=== PATIENT | female | born 1960 | race Two or more races ===

== ENCOUNTER 2019-05-14 17:51 | Inpatient (IN) | payer MEDICARE, MEDICAID ==
[~2019-05-14] VITALS: Ht 165.1 cm; Wt 78.2 kg
--- NOTE | 2019-05-14 18:01 | NUR ---
ED Nurse Note: Patient gregg MACEDO from [facility] with elevated potassium, creatinine and BUN. based on lab results, patients potassium is 6.5. at time of arrival patient complains of no pain at this time. patient is alert and oriented x4. patient presents with scabs on her skin bilaterally, has 3 wounds, 1 pressure ulcer on the left foot, one on the right elbow. patient states that she also has a surgical wound on her left hip.
--- NOTE | 2019-05-14 18:02 | NUR ---
ED Nurse Note: patient presents with swollen legs bilaterally. patients skin is rough and dry
[2019-05-14 18:36] VITALS: BP 146/66
[2019-05-14 18:42] LABS: EOSINOPHILS % (AUTO) 2.4 % (0.0-3.0); HEMATOCRIT 32.1 % (37.0-47.0); HEMOGLOBIN 9.9 G/DL (12.0-16.0); LYMPHOCYTES % (AUTO) 24.1 % (20.0-45.0); MEAN CORPUSCULAR VOLUME 93 FL (80-99); MONOCYTES % (AUTO) 6.4 % (1.0-10.0); NEUTROPHILS % (AUTO) 66.2 % (45.0-75.0); PLATELET COUNT 210 K/UL (150-450); RED BLOOD COUNT 3.43 M/UL (4.20-5.40); RED CELL DISTRIBUTION WIDTH 15.6 % (11.6-14.8); WHITE BLOOD COUNT 6.4 K/UL (4.8-10.8)
--- NOTE | 2019-05-14 19:11 | Diagnostic Imaging Report ---
EXAM: XR Chest, 1 View CLINICAL HISTORY: CP TECHNIQUE: Frontal view of the chest. COMPARISON: No relevant prior studies available. FINDINGS: Lungs: Low lung volumes with bronchovascular crowding. No consolidation, pleural effusion, or pneumothorax. Pleural space: See above. Heart: Unremarkable. No cardiomegaly. Mediastinum: Unremarkable. Bones/joints: Unremarkable. IMPRESSION: 1. Low lung volumes with bronchovascular crowding. 2. No acute cardio pulmonary disease. 3. If there is continued concern, recommend PA and lateral chest radiographs.
[2019-05-14 20:03] LABS: ALANINE AMINOTRANSFERASE 36 U/L (12-78); ALBUMIN 1.9 G/DL (3.4-5.0); ALBUMIN/GLOBULIN RATIO 0.2 (1.0-2.7); ALKALINE PHOSPHATASE 178 U/L (46-116); ANION GAP 3 mmol/L (5-15); ASPARTATE AMINO TRANSFERASE 55 U/L (15-37); BILIRUBIN,TOTAL 0.2 MG/DL (0.2-1.0); BLOOD UREA NITROGEN 44 mg/dL (7-18); CALCIUM 7.8 MG/DL (8.5-10.1); CARBON DIOXIDE 25 MMOL/L (21-32); CHLORIDE 104 MMOL/L (98-107); CKMB 1.1 NG/ML (0.0-3.6); CREATINE KINASE 37 U/L (26-308); CREATININE 2.8 MG/DL (0.55-1.30); SODIUM 133 MMOL/L (136-145)
[2019-05-14 20:08] LABS: POTASSIUM 6.5 MMOL/L (3.5-5.1)
[2019-05-14] MEDS ORDERED: Insulin Human Regular 100units/ml 3ml IV ONE (20:15)
[2019-05-14] MEDS ORDERED: Calcium Gluconate 1gm/10ml vial IVP ONE (20:15)
--- NOTE | 2019-05-14 20:15 | NUR ---
NURSE NOTES: Received patient from ER Nurse Christo RN. Patient is awake and oriented x4, she is on room air, tolerating well showing no signs of distress. Patient's bilateral legs are edematous, rough, and scaly. IV site is Right Forearm 22g, patent and asymptomatic. Heart monitor is on, bed is locked, placed in lowest position, call light within reach, bed alarm on. Belonging list has been signed. Awaiting orders from Dr. Matute. Will continue to monitor.
--- NOTE | 2019-05-14 20:30 | NUR ---
ED Nurse Note: Patient refused cre and vre swab
--- NOTE | 2019-05-14 20:45 | NUR ---
NURSE NOTES: Called Dr. Matute's office regarding admitting orders. Awaiting orders from doctor.
--- NOTE | 2019-05-14 21:00 | NUR ---
ED Nurse Note: ambulated patient to the bathroom
[2019-05-14 21:08] LABS: APPEARANCE,URINE CLEAR; BILIRUBIN, URINE NEGATIVE (NEGATIVE); COLOR,URINE PALE YELLOW; GLUCOSE, URINE (UA) NEGATIVE (NEGATIVE); KETONES,URINE NEGATIVE (NEGATIVE); LEUKOCYTE ESTERASE ,URINE 1+ (NEGATIVE); NITRITE,URINE NEGATIVE (NEGATIVE); PH,URINE 5 (4.5-8.0); PROTEIN,URINE 3+ (NEGATIVE); UROBILINOGEN,URINE NORMAL MG/DL (0.0-1.0)
[2019-05-14 21:26] VITALS: BP 138/72
--- NOTE | 2019-05-14 21:49 | Emergency Room Report ---
History of Present Illness General Chief Complaint: Abnormal Labs Source: Patient Present Illness HPI 58-year-old female presents ED for evaluation. Brought in by EMS from custodial facility for abnormal labs. Had recent labs which showed elevated potassium with elevated BUN/creatinine. Patient states this is happened to her before. States she does have kidney problems. But is not on dialysis. Denies chest pain or shortness of breath. Denies fevers or chills. No other aggravating relieving factors. Denies any other associated symptoms Allergies: Coded Allergies: CLINDAMYCIN (Verified Allergy, Unknown, 05/14/19) VANCOMYCIN (Verified Allergy, Unknown, 05/14/19) Patient History Past Medical History: DM, CHF Past Surgical History: none Pertinent Family History: none Social History: Denies: smoking, alcohol use, drug use Now: No Immunizations: UTD Reviewed Nursing Documentation: PMH: Agreed; PSxH: Agreed Nursing Documentation-PMH Past Medical History: No History, Except For Hx Cardiac Problems: Yes Hx Hypertension: Yes - CHF Hx Diabetes: Yes Review of Systems All Other Systems: negative except mentioned in HPI Physical Exam Vital Signs Date Time Temp Pulse Resp B/P (MAP) Pulse Ox O2 Delivery O2 Flow Rate FiO2 05/14/19 18:04 97.5 62 18 146/66 (92) 96 Room Air Sp02 EP Interpretation: reviewed, normal General Appearance: no apparent distress, alert, GCS 15, non-toxic Head: normocephalic, atraumatic Eyes: bilateral eye normal inspection, bilateral eye PERRL ENT: hearing grossly normal, normal pharynx, no angioedema, normal voice Neck: full range of motion, supple/symm/no masses Respiratory: chest non-tender, lungs clear, normal breath sounds, speaking full sentences Cardiovascular #1: regular rate, rhythm, no edema Cardiovascular #2: 2+ carotid (R), 2+ carotid (L), 2+ radial (R), 2+ radial (L) , 2+ dorsalis pedis (R), 2+ dorsalis pedis (L) Gastrointestinal: normal bowel sounds, non tender, soft, non-distended, no guarding, no rebound Rectal: deferred Genitourinary: normal inspection, no CVA tenderness Musculoskeletal: back normal, gait/station normal, normal range of motion, non- tender, swelling Neurologic: alert, oriented x3, responsive, motor strength/tone normal, sensory intact, speech normal Psychiatric: judgement/insight normal, memory normal, mood/affect normal, no suicidal/homicidal ideation Reflexes: 3+ bicep (R), 3+ bicep (L), 3+ tricep (R), 3+ tricep (L), 3+ knee (R) , 3+ knee (L) Lymphatic: no adenopathy Medical Decision Making Diagnostic Impression: Primary Impression: Hyperkalemia, diminished renal excretion Additional Impression: Renal insufficiency ER Course Hospital Course 58 yo F presents with elevated K from SNF Differential diagnoses include: [place]/unstable angina, V. tach, bradycardia, hyperkalemia, fluid overload Clinical course Patient placed on stretcher. on property assessment monitor. After initial history and physical I ordered labs, EKG, CXR labs reviewed- potassium 6.5. BUN/Cr elevated. Hemoglobin/hematocrit normal. trop negative EKG - NSR, no acute ischemic changes interpreted by me CXR - no acute process Given insuln/D50 and calcium. Case discussed with Dr. Matute and he agreed to accept the patient to his service for further care and support I. I feel this is a highly complex case requiring extensive working including EKG/Rhythm strip, Xray/CT/US, Blood/urine lab work, repeat exams while in ED, and administration of strong opiates/narcotics for pain control, admission to hospital or close patient follow up. Diagnosis - hyperkalemia, renal insufficiency admitted to telemetry in serious condition Labs Test 05/14/19 18:15 05/14/19 19:20 05/14/19 20:55 White Blood Count 6.4 K/UL (4.8-10.8) Red Blood Count 3.43 M/UL (4.20-5.40) Hemoglobin 9.9 G/DL (12.0-16.0) Hematocrit 32.1 % (37.0-47.0) Mean Corpuscular Volume 93 FL (80-99) Mean Corpuscular Hemoglobin 28.9 PG (27.0-31.0) Mean Corpuscular Hemoglobin Concent 30.9 G/DL (32.0-36.0) Red Cell Distribution Width 15.6 % (11.6-14.8) Platelet Count 210 K/UL (150-450) Mean Platelet Volume 5.9 FL (6.5-10.1) Neutrophils (%) (Auto) 66.2 % (45.0-75.0) Lymphocytes (%) (Auto) 24.1 % (20.0-45.0) Monocytes (%) (Auto) 6.4 % (1.0-10.0) Eosinophils (%) (Auto) 2.4 % (0.0-3.0) Basophils (%) (Auto) 1.0 % (0.0-2.0) Troponin I 0.000 ng/mL (0.000-0.056) Sodium Level 133 MMOL/L (136-145) Potassium Level 6.5 MMOL/L (3.5-5.1) Chloride Level 104 MMOL/L (98-107) Carbon Dioxide Level 25 MMOL/L (21-32) Anion Gap 3 mmol/L (5-15) Blood Urea Nitrogen 44 mg/dL (7-18) Creatinine 2.8 MG/DL (0.55-1.30) Estimat Glomerular Filtration Rate 17.4 mL/min (>60) Glucose Level 141 MG/DL (74-106) Calcium Level 7.8 MG/DL (8.5-10.1) Total Bilirubin 0.2 MG/DL (0.2-1.0) Aspartate Amino Transf (AST/SGOT) 55 U/L (15-37) Alanine Aminotransferase (ALT/SGPT) 36 U/L (12-78) Alkaline Phosphatase 178 U/L (46-116) Total Creatine Kinase 37 U/L (26-308) Creatine Kinase MB 1.1 NG/ML (0.0-3.6) Creatine Kinase MB Relative Index 2.9 Pro-B-Type Natriuretic Peptide 715 pg/mL (0-125) Total Protein 9.5 G/DL (6.4-8.2) Albumin 1.9 G/DL (3.4-5.0) Globulin 7.6 g/dL Albumin/Globulin Ratio 0.2 (1.0-2.7) Urine Color Pale yellow Urine Appearance Clear Urine pH 5 (4.5-8.0) Urine Specific [place] 1.015 (1.005-1.035) Urine Protein 3+ (NEGATIVE) Urine Glucose (UA) Negative (NEGATIVE) Urine Ketones Negative (NEGATIVE) Urine Blood 2+ (NEGATIVE) Urine Nitrite Negative (NEGATIVE) Urine Bilirubin Negative (NEGATIVE) Urine Urobilinogen Normal MG/DL (0.0-1.0) Urine Leukocyte Esterase 1+ (NEGATIVE) Urine RBC 2-4 /HPF (0 - 2) Urine WBC 0-2 /HPF (0 - 2) Urine Squamous Epithelial Cells Occasional /LPF Urine Bacteria Few /HPF (NONE) EKG Diagnostic Results Rate: normal Rhythm: NSR ST Segments: no acute changes ASA given to the pt in ED: No Rhythm Strip Diag. Results EP Interpretation: yes Rhythm: NSR, no PVC's, no ectopy Chest X-Ray Diagnostic Results Chest X-Ray Diagnostic Results : Chest X-Ray Ordered: Yes # of Views/Limited/Complete: 1 View Indication: Other EP Interpretation: Yes Interpretation: no consolidation, no effusion, no pneumothorax, no acute cardiopulmonary disease Impression: No acute disease Electronically Signed by: Electronically signed by Kenyon Huerta MD Last Vital Signs Date Time Temp Pulse Resp B/P (MAP) Pulse Ox O2 Delivery O2 Flow Rate FiO2 05/14/19 21:26 97.5 79 18 138/72 96 Room Air Status: improved Disposition: ADMITTED INPATIENT Condition: Serious Referrals: NON PHYSICIAN (PCP) Kenyon Huerta MD May 14, 2019 21:49
--- NOTE | 2019-05-14 21:59 | Emergency Room Report ---
Physical Exam Vital Signs Date Time Temp Pulse Resp B/P (MAP) Pulse Ox O2 Delivery O2 Flow Rate FiO2 05/14/19 18:04 97.5 62 18 146/66 (92) 96 Room Air Skin: other - see nursing notes for full skin exam, wounds etc Medical Decision Making Diagnostic Impression: Primary Impression: Hyperkalemia, diminished renal excretion Additional Impression: Renal insufficiency Last Vital Signs Date Time Temp Pulse Resp B/P (MAP) Pulse Ox O2 Delivery O2 Flow Rate FiO2 05/14/19 21:26 97.5 79 18 138/72 96 Room Air Status: improved Disposition: ADMITTED INPATIENT Condition: Serious Referrals: NON PHYSICIAN (PCP) Kenyon Huerta MD May 14, 2019 21:59
--- NOTE | 2019-05-14 22:00 | NUR ---
TRANSFER TO FLOOR: Patient transferred to Telemetry as ordered, per . Report given to ChongRN
[2019-05-14] MEDS ORDERED: METHADONE10 MG/1 M2 PO (22:02)
[2019-05-14] MEDS ORDERED: ASPIR 8181 MG ORAL (22:02)
[2019-05-14] MEDS ORDERED: CYMBALTA30 MG ORAL (22:02)
[2019-05-14] MEDS ORDERED: HEPARIN 50100 UNIT/1 IV (22:02)
[2019-05-14] MEDS ORDERED: FERROUS SULFAT325 MG ORAL (22:02)
[2019-05-14] MEDS ORDERED: ZINC SULFATE220 M1 ORAL (22:02)
[2019-05-14] MEDS ORDERED: LEVOTHYROXINE125 MCG ORAL (22:02)
[2019-05-14] MEDS ORDERED: AQUAPHOR99 GM TP (22:02)
[2019-05-14] MEDS ORDERED: LOSARTAN POTASS50 MG ORAL (22:02)
[2019-05-14] MEDS ORDERED: BENADRYL25 MG ORAL (22:02)
[2019-05-14] MEDS ORDERED: METOPROLOL TART25 MG ORAL (22:02)
[2019-05-14] MEDS ORDERED: ACETAMINOPHEN325 M1 ORAL (22:02)
[2019-05-14] MEDS ORDERED: FUROSEMIDE40 MG ORAL (22:02)
--- NOTE | 2019-05-14 23:46 | NUR ---
NURSE NOTES: Second attempt to get orders from Dr. Matute made. Awaiting orders from doctor.
[2019-05-15] VITALS (7 sets, daily range): BP systolic 117–147; BP diastolic 55–79
--- NOTE | 2019-05-15 00:29 | NUR ---
NURSE NOTES: Third attempt to reach Dr. Matute has been made. Awaiting orders from doctor.
--- NOTE | 2019-05-15 01:01 | NUR ---
NURSE NOTES: Nursing Brush Cleaner made aware of being unable to contact Dr. Matute for admitting orders.
--- NOTE | 2019-05-15 01:02 | NUR ---
NURSE NOTES: Orders received from Dr. Matute.
[2019-05-15] MEDS: Levothyroxine 125mcg tab ORAL SCH (05:43)
[2019-05-15 06:31] LABS: EOSINOPHILS % (AUTO) 4.5 % (0.0-3.0); HEMATOCRIT 29.3 % (37.0-47.0); HEMOGLOBIN 8.9 G/DL (12.0-16.0); MEAN CORPUSCULAR VOLUME 94 FL (80-99); MONOCYTES % (AUTO) 8.3 % (1.0-10.0); NEUTROPHILS % (AUTO) 57.3 % (45.0-75.0); PLATELET COUNT 173 K/UL (150-450); RED BLOOD COUNT 3.12 M/UL (4.20-5.40); RED CELL DISTRIBUTION WIDTH 16.3 % (11.6-14.8); WHITE BLOOD COUNT 6.4 K/UL (4.8-10.8)
[2019-05-15 06:44] LABS: ANION GAP 6 mmol/L (5-15); BLOOD UREA NITROGEN 45 mg/dL (7-18); CALCIUM 7.9 MG/DL (8.5-10.1); CARBON DIOXIDE 22 MMOL/L (21-32); CHLORIDE 104 MMOL/L (98-107); CREATININE 2.7 MG/DL (0.55-1.30); SODIUM 132 MMOL/L (136-145)
[2019-05-15 06:53] LABS: POTASSIUM 6.3 MMOL/L (3.5-5.1)
[2019-05-15] MEDS ORDERED: Sodium Polystyrene Sulfonate 15gm Powder ORAL SCH ×2 (07:00→14:00)
--- NOTE | 2019-05-15 07:25 | NUR ---
HAND-OFF: Report given to Maximino SCHROEDER. Patient in stable condition.
--- NOTE | 2019-05-15 08:34 | NUR ---
SPUTUM COLLATED FOR ACID FAST SMEAR/ CULTURE ORDERED AND SENT TO LAB PER LAB IT WAS AN ORDER FOR 3 DAYS SERIAL ACID FAST SMEAR ORDER FROM YESTERDAY ( NO SPUTUM CULTURE RECEIVED ON May ), SO TODAY WILL BE COUNTED INITIAL SPUTUM AND THEY NEED 2 MORE SPUTUM CULTURE TO COMPLEAT THE ORDER.
[2019-05-15] MEDS: Losartan 50mg tab ORAL SCH ×2 (09:00→09:49)
--- NOTE | 2019-05-15 09:16 | Diagnostic Imaging Report ---
EXAM: US Retroperitoneal Limited, Renal CLINICAL HISTORY: ARF, abnormal renal function tests. Past history of hypertension, diabetes, hepatitis C. TECHNIQUE: Real-time ultrasound of the retroperitoneum (limited) with image documentation. COMPARISON: No relevant prior studies available. FINDINGS: Right kidney: Right kidney measures 10.7 x 5.6 x 4.0 cm. Normal cortical thickness. No visible parenchymal lesions. No visible stones. No hydronephrosis. Left kidney: Left kidney measures 10.4 x 6.6 x 5.8 cm. Normal cortical thickness. No visible parenchymal lesions. No visible stones. No hydronephrosis. Bladder: Bilateral ureteral jets were identified with Doppler interrogation. IMPRESSION: No acute findings.
[2019-05-15] MEDS: Aspirin EC 81mg tab ORAL SCH (09:46)
[2019-05-15] MEDS: Metoprolol 25mg tab ORAL SCH ×2 (09:46→21:09)
[2019-05-15] MEDS: Zinc Sulfate 220mg cap ORAL SCH (09:47)
[2019-05-15] MEDS: DULoxetine 30mg cap ORAL SCH (09:48)
[2019-05-15] MEDS: Furosemide 40mg tab ORAL SCH (09:48)
[2019-05-15 12:00] LABS: ANION GAP 4 mmol/L (5-15); BLOOD UREA NITROGEN 44 mg/dL (7-18); CALCIUM 7.9 MG/DL (8.5-10.1); CARBON DIOXIDE 24 MMOL/L (21-32); CHLORIDE 108 MMOL/L (98-107); CREATININE 2.5 MG/DL (0.55-1.30); POTASSIUM 5.8 MMOL/L (3.5-5.1); SODIUM 136 MMOL/L (136-145)
--- NOTE | 2019-05-15 12:23 | Consultation ---
History of Present Illness General Date patient seen: May 15, 2019 Reason for Hospitalization: Abnormal Labs Present Illness HPI 58 year old female with multiple medical comorbidities who is a half-way resident presented with abnormal labs for evaluation. Noted to have severe anemia, renal insufficiency, and admitted for care and management. On admission had multiple decubitus ulcers requiring care. surgery called to evaluate. Patient seen, chart reviewed, patient examined. feels well without complaints. Allergies: Coded Allergies: CLINDAMYCIN (Verified Allergy, Unknown, 05/14/19) VANCOMYCIN (Verified Allergy, Unknown, 05/14/19) Medication History Scheduled Aspirin* (Aspir 81*), 81 MG ORAL DAILY, (Reported) Duloxetine Hcl* (Cymbalta*), 30 MG ORAL DAILY, (Reported) Ertapenem Sodium (Ertapenem), 1 GM IVPB DAILY, (Reported) Ferrous Sulfate* (Ferrous Sulfate*), 325 MG ORAL DAILY, (Reported) Furosemide* (Lasix*), 40 MG ORAL DAILY, (Reported) Levothyroxine Sodium* (Levothyroxine Sodium*), 125 MCG ORAL DAILY, (Reported) Losartan Potassium* (Losartan Potassium*), 50 MG ORAL DAILY, (Reported) Metoprolol Tartrate* (Metoprolol Tartrate*), 25 MG ORAL EVERY 12 HOURS, ( Reported) Zinc Sulfate (Zinc Sulfate*), 220 MG ORAL DAILY, (Reported) Scheduled PRN Acetaminophen* (Acetaminophen 325MG Tablet*), 325 MG ORAL Q4H PRN for For Pain, (Reported) Diphenhydramine Hcl* (Benadryl*), 25 MG ORAL Q6H PRN for Itching, (Reported) Miscellaneous Medications Heparin Sodium,Porcine/Pf (Heparin 500 Unit/5 ml (100/ml)), 100 UNIT IV, ( Reported) Methadone Hcl (Methadone Intensol), 10 MG PO, (Reported) Petrolatum,White (Aquaphor), 99 GM TP, (Reported) Patient History History Provided By: Patient, Medical Record, PMD Healthcare decision maker Resuscitation status Full Code Advanced Directive on File Yes Past Medical/Surgical History Past Medical/Surgical History: (1) Renal insufficiency (2) Hyperkalemia, diminished renal excretion Review of Systems Review of Symptoms General ROS: no weight loss or fever Psychological ROS: no depression or mood changes, no memory loss Ophthalmic ROS: no visual changes or eye irritation ENT ROS: no nasal congestion, hearing loss, dizziness Allergy and Immunology ROS: no allergic symptoms or urticaria Hematological and Lymphatic ROS: no swollen glands, unusual bleeding or bruising Endocrine ROS: no polyuria, polydipsia, weight changes, temperature intolerance Respiratory ROS: no cough, shortness of breath, or wheezing Cardiovascular ROS: no chest pain or dyspnea on exertion Gastrointestinal ROS: denies abdominal pain, no bright red blood in stool. Musculoskeletal ROS: no myalgias or arthralgias Neurological ROS: no TIA or stroke symptoms Dermatological ROS: no new or changing skin lesions, rashes or pruritis Physical Exam Physical Exam General appearance: alert, cooperative, no distress, appears stated age Head: Normocephalic, without obvious abnormality, atraumatic Eyes: conjunctivae/corneas clear. PERRL, EOM's intact. Fundi benign Throat: Lips, mucosa, and tongue normal. Teeth and gums normal Neck: supple, symmetrical, trachea midline, no adenopathy, thyroid: not enlarged, symmetric, no tenderness/mass/nodules, no carotid bruit and no JVD Lungs: clear to auscultation bilaterally Heart: regular rate and rhythm, S1, S2 normal, no murmur, click, rub or gallop Abdomen: soft, non-tender. Bowel sounds normal. No masses, no organomegaly Extremities: extremities with ulcers Pulses: 2+ and symmetric Skin: Skin color, texture, turgor normal. No rashes or lesions Neurologic: Grossly normal Last 24 Hour Vital Signs Date Time Temp Pulse Resp B/P (MAP) Pulse Ox O2 Delivery O2 Flow Rate FiO2 05/15/19 10:28 Room Air 05/15/19 09:46 63 118/75 05/15/19 09:12 98.0 63 18 118/75 (89) 100 05/15/19 09:00 118/75 05/15/19 04:00 98.4 70 16 127/56 (79) 100 05/15/19 03:44 68 05/15/19 00:00 97.5 60 16 147/77 (100) 100 05/14/19 23:36 63 05/14/19 22:38 Room Air 05/14/19 22:00 98.2 73 18 137/72 100 Room Air 05/14/19 21:26 97.5 79 18 138/72 96 Room Air 05/14/19 18:36 97.5 70 18 146/66 96 Room Air 05/14/19 18:04 97.5 62 18 146/66 (92) 96 Room Air Intake and Output 05/14/19 05/15/19 19:00 07:00 Intake Total 480 ml Balance 480 ml Intake Oral 120 ml IV Total 360 ml # Voids 3 Laboratory Tests Test 05/14/19 18:15 05/14/19 19:20 05/14/19 20:55 05/15/19 06:01 White Blood Count 6.4 K/UL (4.8-10.8) 6.4 K/UL (4.8-10.8) Red Blood Count 3.43 M/UL (4.20-5.40) L 3.12 M/UL (4.20-5.40) L Hemoglobin 9.9 G/DL (12.0-16.0) L 8.9 G/DL (12.0-16.0) L Hematocrit 32.1 % (37.0-47.0) L 29.3 % (37.0-47.0) L Mean Corpuscular Volume 93 FL (80-99) 94 FL (80-99) Mean Corpuscular Hemoglobin 28.9 PG (27.0-31.0) 28.6 PG (27.0-31.0) Mean Corpuscular Hemoglobin Concent 30.9 G/DL (32.0-36.0) L 30.5 G/DL (32.0-36.0) L Red Cell Distribution Width 15.6 % (11.6-14.8) H 16.3 % (11.6-14.8) H Platelet Count 210 K/UL (150-450) 173 K/UL (150-450) Mean Platelet Volume 5.9 FL (6.5-10.1) L 5.7 FL (6.5-10.1) L Neutrophils (%) (Auto) 66.2 % (45.0-75.0) 57.3 % (45.0-75.0) Lymphocytes (%) (Auto) 24.1 % (20.0-45.0) 29.0 % (20.0-45.0) Monocytes (%) (Auto) 6.4 % (1.0-10.0) 8.3 % (1.0-10.0) Eosinophils (%) (Auto) 2.4 % (0.0-3.0) 4.5 % (0.0-3.0) H Basophils (%) (Auto) 1.0 % (0.0-2.0) 1.0 % (0.0-2.0) Troponin I 0.000 ng/mL (0.000-0.056) Sodium Level 133 MMOL/L (136-145) L 132 MMOL/L (136-145) L Potassium Level 6.5 MMOL/L (3.5-5.1) *H 6.3 MMOL/L (3.5-5.1) *H Chloride Level 104 MMOL/L (98-107) 104 MMOL/L (98-107) Carbon Dioxide Level 25 MMOL/L (21-32) 22 MMOL/L (21-32) Anion Gap 3 mmol/L (5-15) L 6 mmol/L (5-15) Blood Urea Nitrogen 44 mg/dL (7-18) H 45 mg/dL (7-18) H Creatinine 2.8 MG/DL (0.55-1.30) H 2.7 MG/DL (0.55-1.30) H Estimat Glomerular Filtration Rate 17.4 mL/min (>60) 18.1 mL/min (>60) Glucose Level 141 MG/DL (74-106) H 88 MG/DL (74-106) Calcium Level 7.8 MG/DL (8.5-10.1) L 7.9 MG/DL (8.5-10.1) L Total Bilirubin 0.2 MG/DL (0.2-1.0) Aspartate Amino Transf (AST/SGOT) 55 U/L (15-37) H Alanine Aminotransferase (ALT/SGPT) 36 U/L (12-78) Alkaline Phosphatase 178 U/L (46-116) H Total Creatine Kinase 37 U/L (26-308) Creatine Kinase MB 1.1 NG/ML (0.0-3.6) Creatine Kinase MB Relative Index 2.9 Pro-B-Type Natriuretic Peptide 715 pg/mL (0-125) H Total Protein 9.5 G/DL (6.4-8.2) H Albumin 1.9 G/DL (3.4-5.0) L Globulin 7.6 g/dL Albumin/Globulin Ratio 0.2 (1.0-2.7) L Urine Color Pale yellow Urine Appearance Clear Urine pH 5 (4.5-8.0) Urine Specific [place] 1.015 (1.005-1.035) Urine Protein 3+ (NEGATIVE) H Urine Glucose (UA) Negative (NEGATIVE) Urine Ketones Negative (NEGATIVE) Urine Blood 2+ (NEGATIVE) H Urine Nitrite Negative (NEGATIVE) Urine Bilirubin Negative (NEGATIVE) Urine Urobilinogen Normal MG/DL (0.0-1.0) Urine Leukocyte Esterase 1+ (NEGATIVE) H Urine RBC 2-4 /HPF (0 - 2) H Urine WBC 0-2 /HPF (0 - 2) Urine Squamous Epithelial Cells Occasional /LPF Urine Bacteria Few /HPF (NONE) Test 05/15/19 11:15 Sodium Level Pending Potassium Level Pending Chloride Level Pending Carbon Dioxide Level Pending Blood Urea Nitrogen Pending Creatinine Pending Estimat Glomerular Filtration Rate Pending Glucose Level Pending Calcium Level Pending Height (Feet): 5 Height (Inches): 5.00 Weight (Pounds): 172 Medications Current Medications Medications (Trade) Dose Ordered Sig/Miguelina Route PRN Reason Start Time Stop Time Status Last Admin Dose Admin Acetaminophen (Tylenol) 325 mg Q4H PRN ORAL For Pain and Fever >100.5 05/15/19 01:15 06/14/19 01:14 Al Hydroxide/Mg Hydroxide (Mylanta) 30 ml Q4H PRN ORAL heart burn and indigestion 05/15/19 01:15 06/14/19 01:14 Aspirin (Ecotrin) 81 mg DAILY ORAL 05/15/19 09:00 06/14/19 08:59 05/15/19 09:46 Diphenhydramine HCl (Benadryl) 25 mg Q6H PRN ORAL Itching 05/15/19 01:15 06/14/19 01:14 Duloxetine HCl (Cymbalta) 30 mg DAILY ORAL 05/15/19 09:00 06/14/19 08:59 05/15/19 09:48 Ferrous Sulfate (Feosol) 325 mg DAILY@2100 ORAL 05/15/19 21:00 06/14/19 20:59 Furosemide (Lasix) 40 mg DAILY ORAL 05/15/19 09:00 06/14/19 08:59 05/15/19 09:48 Levothyroxine Sodium (Synthroid) 125 mcg DAILY@0630 ORAL 05/15/19 06:30 06/14/19 06:29 05/15/19 05:43 Losartan Potassium (Cozaar) 50 mg DAILY ORAL 05/15/19 09:00 06/14/19 08:59 Methadone HCl (Methadone HCl) 40 mg DAILY ORAL 05/15/19 09:00 05/22/19 08:59 05/15/19 09:48 Metoprolol Tartrate (Lopressor) 25 mg EVERY 12 HOURS ORAL 05/15/19 09:00 06/14/19 08:59 05/15/19 09:46 Pantoprazole (Protonix) 40 mg DAILY ORAL 05/15/19 09:00 06/14/19 08:59 05/15/19 09:46 Zinc Sulfate (Zinc Sulfate) 220 mg DAILY ORAL 05/15/19 09:00 06/14/19 08:59 05/15/19 09:47 Assessment/Plan Problem List: (1) Anemia ICD Codes: D64.9 - Anemia, unspecified SNOMED: 251459019 (2) Decubitus ulcer of left heel, stage 4 ICD Codes: L89.624 - Pressure ulcer of left heel, stage 4 SNOMED: 796702063 (3) Decubitus skin ulcer Assessment & Plan: 58 year old female presented with multiple decubitus ulcers. left heel stage 4 decubitus ulcer with some granulation tissue and sloth. periwound okay, no active infection, no odor, open wound present for many years as per patient. non tender. right elbow resolving decubitus ulcer with dry eschar, no drainage, no odor left hip large stage 4 decubitus ulcer, mild serous drainage, no odor, no active infection Tx Plan: wash left heel daily, apply hydrogel gauze and foam dressing daily and prn right elbow place foam dressing left hip was daily and apply therahoney followed by gauze and foam dressing. turn q2h air mattress off load heels with pillow thank you ICD Codes: L89.90 - Pressure ulcer of unspecified site, unspecified stage SNOMED: 805184508 (4) Renal insufficiency ICD Codes: N28.9 - Disorder of kidney and ureter, unspecified SNOMED: 039525580, 385232499 (5) Hyperkalemia, diminished renal excretion ICD Codes: E87.5 - Hyperkalemia SNOMED: 28369911, 877403657 J Carlos Galicia May 15, 2019 12:23
--- NOTE | 2019-05-15 12:50 | NUR ---
CASE MANAGEMENT: INITIAL REVIEW 58 YO F DAYANNA FROM [facility] CC: ABNORMAL LABS PMHx: DM. CHF. SI:HYPERKALEMIA T 97.5 HR 62 RR 18 B/P 146/66 SATS 96% ON RA K 6.5 BUN 44 CR 2.8 GLU 141 CA 7.8 AST 55 ALP 178 BNP 715 IS: CALCIUM GLUCONATE IV X1 HUMAN REGULAR 10 UNITS IV X1 D50W IV X1 PATIENT ADMITTED TO [facility] 05/14/2019 @ 8631 DCP: PATIENT TO BE DISCHARGED TO SNF ONCE MEDICALLY CLEARED. PLAN OF CARE: WOUND CARE RENAL (-) Addendum: 05/15/19 at 1257 by Natalie Orta INTERQUAL MET
[2019-05-15 13:32] LABS: % IRON SATURATION 47 % (15-50); IRON 80 ug/dL (50-175); TOTAL IRON BINDING CAPACITY 172 ug/dL (250-450)
[2019-05-15 13:46] LABS: FERRITIN 456 NG/ML (8-388)
--- NOTE | 2019-05-15 14:06 | NUR ---
24 hours urine collection started @ 1400
--- NOTE | 2019-05-15 15:41 | History & Physical ---
History and Physical History & Physicial 58-year-old female presents from half-way facility for abnormal labs. Confirmed labs which showed elevated potassium with elevated BUN/creatinine. Patient has renal dysfunction. Denies fevers or chills. No other aggravating relieving factors. Denies any other associated symptoms. intervention reviewed in the ER and now admitted. repeat K still elevated. Allergies: Coded Allergies: CLINDAMYCIN (Verified Allergy, Unknown, 05/14/19) VANCOMYCIN (Verified Allergy, Unknown, 05/14/19) Patient History Past Medical History: DM, CHF, CKD, HTN Past Surgical History: none Pertinent Family History: none Social History: Denies: smoking, alcohol use, drug use, SNF patient Reviewed of systems: otherwise negative Physical WDWN NAD clear breath sounds bilaterally without rhonchi or wheeze [id number] without MRG NABS nontender no HSM no CCE nonfocal Labs Test 05/14/19 18:15 05/14/19 19:20 05/14/19 20:55 05/15/19 06:01 White Blood Count 6.4 K/UL (4.8-10.8) 6.4 K/UL (4.8-10.8) Red Blood Count 3.43 M/UL (4.20-5.40) 3.12 M/UL (4.20-5.40) Hemoglobin 9.9 G/DL (12.0-16.0) 8.9 G/DL (12.0-16.0) Hematocrit 32.1 % (37.0-47.0) 29.3 % (37.0-47.0) Mean Corpuscular Volume 93 FL (80-99) 94 FL (80-99) Mean Corpuscular Hemoglobin 28.9 PG (27.0-31.0) 28.6 PG (27.0-31.0) Mean Corpuscular Hemoglobin Concent 30.9 G/DL (32.0-36.0) 30.5 G/DL (32.0-36.0) Red Cell Distribution Width 15.6 % (11.6-14.8) 16.3 % (11.6-14.8) Platelet Count 210 K/UL (150-450) 173 K/UL (150-450) Mean Platelet Volume 5.9 FL (6.5-10.1) 5.7 FL (6.5-10.1) Neutrophils (%) (Auto) 66.2 % (45.0-75.0) 57.3 % (45.0-75.0) Lymphocytes (%) (Auto) 24.1 % (20.0-45.0) 29.0 % (20.0-45.0) Monocytes (%) (Auto) 6.4 % (1.0-10.0) 8.3 % (1.0-10.0) Eosinophils (%) (Auto) 2.4 % (0.0-3.0) 4.5 % (0.0-3.0) Basophils (%) (Auto) 1.0 % (0.0-2.0) 1.0 % (0.0-2.0) Troponin I 0.000 ng/mL (0.000-0.056) Sodium Level 133 MMOL/L (136-145) 132 MMOL/L (136-145) Potassium Level 6.5 MMOL/L (3.5-5.1) 6.3 MMOL/L (3.5-5.1) Chloride Level 104 MMOL/L (98-107) 104 MMOL/L (98-107) Carbon Dioxide Level 25 MMOL/L (21-32) 22 MMOL/L (21-32) Anion Gap 3 mmol/L (5-15) 6 mmol/L (5-15) Blood Urea Nitrogen 44 mg/dL (7-18) 45 mg/dL (7-18) Creatinine 2.8 MG/DL (0.55-1.30) 2.7 MG/DL (0.55-1.30) Estimat Glomerular Filtration Rate 17.4 mL/min (>60) 18.1 mL/min (>60) Glucose Level 141 MG/DL (74-106) 88 MG/DL (74-106) Calcium Level 7.8 MG/DL (8.5-10.1) 7.9 MG/DL (8.5-10.1) Total Bilirubin 0.2 MG/DL (0.2-1.0) Aspartate Amino Transf (AST/SGOT) 55 U/L (15-37) Alanine Aminotransferase (ALT/SGPT) 36 U/L (12-78) Alkaline Phosphatase 178 U/L (46-116) Total Creatine Kinase 37 U/L (26-308) Creatine Kinase MB 1.1 NG/ML (0.0-3.6) Creatine Kinase MB Relative Index 2.9 Pro-B-Type Natriuretic Peptide 715 pg/mL (0-125) Total Protein 9.5 G/DL (6.4-8.2) Albumin 1.9 G/DL (3.4-5.0) Globulin 7.6 g/dL Albumin/Globulin Ratio 0.2 (1.0-2.7) Urine Color Pale yellow Urine Appearance Clear Urine pH 5 (4.5-8.0) Urine Specific [place] 1.015 (1.005-1.035) Urine Protein 3+ (NEGATIVE) Urine Glucose (UA) Negative (NEGATIVE) Urine Ketones Negative (NEGATIVE) Urine Blood 2+ (NEGATIVE) Urine Nitrite Negative (NEGATIVE) Urine Bilirubin Negative (NEGATIVE) Urine Urobilinogen Normal MG/DL (0.0-1.0) Urine Leukocyte Esterase 1+ (NEGATIVE) Urine RBC 2-4 /HPF (0 - 2) Urine WBC 0-2 /HPF (0 - 2) Urine Squamous Epithelial Cells Occasional /LPF Urine Bacteria Few /HPF (NONE) Test 05/15/19 11:15 Sodium Level 136 MMOL/L (136-145) Potassium Level 5.8 MMOL/L (3.5-5.1) Chloride Level 108 MMOL/L (98-107) Carbon Dioxide Level 24 MMOL/L (21-32) Anion Gap 4 mmol/L (5-15) Blood Urea Nitrogen 44 mg/dL (7-18) Creatinine 2.5 MG/DL (0.55-1.30) Estimat Glomerular Filtration Rate 19.8 mL/min (>60) Glucose Level 103 MG/DL (74-106) Calcium Level 7.9 MG/DL (8.5-10.1) Iron Level 80 ug/dL (50-175) Total Iron Binding Capacity 172 ug/dL (250-450) Percent Iron Saturation 47 % (15-50) Unsaturated Iron Binding 92 ug/dL (112-346) Ferritin 456 NG/ML (8-388) IMPRESSION CKD Hyperkalemia CHF diabetes hypertension pressure ulcers PLAN kayexalate follow up labs meds as is wound care monitor for change impression, plan, and exam edited and reviewed in detail care discussed with Manolo Gómez MD 4, 2019 15:41
--- NOTE | 2019-05-15 15:42 | General Progress Note ---
Subjective Allergies: Coded Allergies: CLINDAMYCIN (Verified Allergy, Unknown, 05/14/19) VANCOMYCIN (Verified Allergy, Unknown, 05/14/19) Objective Last 24 Hour Vital Signs Date Time Temp Pulse Resp B/P (MAP) Pulse Ox O2 Delivery O2 Flow Rate FiO2 05/15/19 12:00 97.7 67 18 117/55 (75) 97 05/15/19 12:00 67 05/15/19 10:28 Room Air 05/15/19 09:46 63 118/75 05/15/19 09:12 98.0 63 18 118/75 (89) 100 05/15/19 09:00 118/75 05/15/19 08:00 98.0 63 18 118/75 (89) 100 05/15/19 08:00 64 05/15/19 04:00 98.4 70 16 127/56 (79) 100 05/15/19 03:44 68 05/15/19 00:00 97.5 60 16 147/77 (100) 100 05/14/19 23:36 63 05/14/19 22:38 Room Air 05/14/19 22:00 98.2 73 18 137/72 100 Room Air 05/14/19 21:26 97.5 79 18 138/72 96 Room Air 05/14/19 18:36 97.5 70 18 146/66 96 Room Air 05/14/19 18:04 97.5 62 18 146/66 (92) 96 Room Air Intake and Output 05/14/19 05/15/19 19:00 07:00 Intake Total 480 ml Balance 480 ml Intake Oral 120 ml IV Total 360 ml # Voids 3 Laboratory Tests 05/14/19 18:15: White Blood Count 6.4, Red Blood Count 3.43L, Hemoglobin 9.9L, Hematocrit 32.1L , Mean Corpuscular Volume 93, Mean Corpuscular Hemoglobin 28.9, Mean Corpuscular Hemoglobin Concent 30.9L, Red Cell Distribution Width 15.6H, Platelet Count 210, Mean Platelet Volume 5.9L, Neutrophils (%) (Auto) 66.2, Lymphocytes (%) (Auto) 24.1, Monocytes (%) (Auto) 6.4, Eosinophils (%) (Auto) 2.4, Basophils (%) (Auto) 1.0, Troponin I 0.000 05/14/19 19:20: Sodium Level 133L, Potassium Level 6.5*H, Chloride Level 104, Carbon Dioxide Level 25, Anion Gap 3L, Blood Urea Nitrogen 44H, Creatinine 2.8H, Estimat Glomerular Filtration Rate 17.4, Glucose Level 141H, Calcium Level 7.8L, Total Bilirubin 0.2, Aspartate Amino Transf (AST/SGOT) 55H, Alanine Aminotransferase ( ALT/SGPT) 36, Alkaline Phosphatase 178H, Total Creatine Kinase 37, Creatine Kinase MB 1.1, Creatine Kinase MB Relative Index 2.9, Pro-B-Type Natriuretic Peptide 715H, Total Protein 9.5H, Albumin 1.9L, Globulin 7.6, Albumin/Globulin Ratio 0.2L 05/14/19 20:55: Urine Color Pale yellow, Urine Appearance Clear, Urine pH 5, Urine Specific [place] 1.015, Urine Protein 3+H, Urine Glucose (UA) Negative, Urine Ketones Negative, Urine Blood 2+H, Urine Nitrite Negative, Urine Bilirubin Negative, Urine Urobilinogen Normal, Urine Leukocyte Esterase 1+H, Urine RBC 2-4H, Urine WBC 0-2, Urine Squamous Epithelial Cells Occasional, Urine Bacteria Few 05/15/19 06:01: White Blood Count 6.4, Red Blood Count 3.12L, Hemoglobin 8.9L, Hematocrit 29.3L , Mean Corpuscular Volume 94, Mean Corpuscular Hemoglobin 28.6, Mean Corpuscular Hemoglobin Concent 30.5L, Red Cell Distribution Width 16.3H, Platelet Count 173, Mean Platelet Volume 5.7L, Neutrophils (%) (Auto) 57.3, Lymphocytes (%) (Auto) 29.0, Monocytes (%) (Auto) 8.3, Eosinophils (%) (Auto) 4.5H, Basophils (%) (Auto) 1.0, Sodium Level 132L, Potassium Level 6.3*H, Chloride Level 104, Carbon Dioxide Level 22, Anion Gap 6, Blood Urea Nitrogen 45H, Creatinine 2.7H, Estimat Glomerular Filtration Rate 18.1, Glucose Level 88 , Calcium Level 7.9L 05/15/19 11:15: Sodium Level 136, Potassium Level 5.8H, Chloride Level 108H, Carbon Dioxide Level 24, Anion Gap 4L, Blood Urea Nitrogen 44H, Creatinine 2.5H, Estimat Glomerular Filtration Rate 19.8, Glucose Level 103, Calcium Level 7.9L, Iron Level 80, Total Iron Binding Capacity 172L, Percent Iron Saturation 47, Unsaturated Iron Binding 92L, Ferritin 456H Height (Feet): 5 Height (Inches): 5.00 Weight (Pounds): 172 Manolo Matute MD May 15, 2019 15:42
--- NOTE | 2019-05-15 17:00 | Consultation ---
DATE OF CONSULTATION: 05/15/2019 NEPHROLOGY CONSULTATION CONSULTING PHYSICIAN: Sandi Glasgow M.D. ATTENDING PHYSICIAN: Manolo Matute M.D. REFERRING PHYSICIAN: Manolo Matute M.D. REASON FOR CONSULTATION: Elevated BUN and creatinine, and electrolyte abnormalities. HISTORY OF PRESENT ILLNESS: This is a 58-year-old, resident of [facility]. The patient was referred for hyperkalemia. The patient has multiple medical problems. She has nonhealing left ulcer with osteomyelitis of the left heel bones. The patient had open reduction internal fixation also of the left hip with multiple admissions mainly to [facility]. The patient has history of chronic kidney disease, most likely due to diabetic nephropathy. The patient has previous history of hyperkalemia. She was referred by her primary care physician to this hospital for hyperkalemia. The patient has vague idea about her chronic kidney disease and hyperkalemia. The family around her also have the same vague idea. PAST MEDICAL HISTORY: 1. Nonhealing left ankle ulcer. 2. Bilateral venous stasis dermatitis. 3. Left foot ulcers. 4. Osteomyelitis of bilateral heels. 5. Chronic left hip wound. 6. Type 2 diabetes mellitus. 7. Chronic kidney disease, most likely stage 3 due to diabetic nephropathy. 8. Quoted history of drug abuse. 9. Hypothyroidism. CURRENT MEDICATIONS: IV fluids, normal saline, Tylenol p.r.n., baby aspirin, IV calcium gluconate 10% given 1 dose, Benadryl p.r.n. IV, Cymbalta p.r.n., oral iron, Lasix orally, insulin sliding scale, Synthroid, losartan, methadone 40 mg p.o. daily, Lopressor , Mylanta, Protonix, Kayexalate 60 g given 1 time, zinc sulfate. ALLERGIES: Reported to clindamycin and vancomycin. The type of the allergic reaction unclear. FAMILY HISTORY: Unremarkable. SOCIAL HISTORY: She lives in a senior care, [place]. REVIEW OF SYSTEMS: HEENT: Hearing and eyesight are normal. ENDOCRINE: Significant for type 2 diabetes mellitus and hypothyroidism. RESPIRATORY: She denies shortness of breath, cough, or hemoptysis. CARDIAC: She denies chest pain or palpitations. GASTROINTESTINAL: No history of hematochezia, melena, hematemesis, diarrhea, or constipation. PHYSICAL EXAMINATION: GENERAL: This is an elderly female who is in no acute distress. VITAL SIGNS: Blood pressure 118/75, pulse 63 regular, respirations 18, temperature 98 Fahrenheit axillary. HEENT: The head is normocephalic and atraumatic. Pupils are equal, round, and reactive to light and accommodation consensually. NECK: Supple. Trachea midline. There was no lymphadenopathy or thyromegaly. LUNGS: Clear to auscultation and percussion. HEART: Regular rate and rhythm without rubs, murmurs, or gallops. ABDOMEN: Soft and nontender. Bowel sounds were active. EXTREMITIES: She has bilateral lichen planus bilaterally and multiple nonhealing chronic venous stasis ulcers in both heels and bilateral ankles as well as bilateral styloid processes, also overlying the calcaneus. There are no pustular secretions. There are also neuropathic changes on the midfoot area. NEUROLOGIC: She is alert and oriented x4. Cranial nerves II through XII intact. LABORATORY AND ANCILLARY DATA: CBC notable for hematocrit 29.3. Chemistry on admission, potassium 6.5, sodium 133, BUN 44, creatinine 2.8, today creatinine down to 2.5, BUN 44, potassium 5.8. Urinalysis 3+ protein, microscopy, unremarkable. IMAGING STUDIES: Renal ultrasound, normal cortical thickness, normal size, no hydronephrosis. ASSESSMENT: 1. Chronic kidney disease, seems like stage 3 to 4 due to diabetic nephropathy with hyperkalemia due to relative hyporeninemic hypoaldosteronism, either absolute or relative. 2. Nonhealing left ankle ulcer. 3. Bilateral venous stasis dermatitis. 4. Left foot ulcers. 5. Osteomyelitis of bilateral heels. 6. Chronic left hip wound. 7. Type 2 diabetes mellitus. 8. Chronic kidney disease, most likely stage 3 due to diabetic nephropathy. 9. Quoted history of drug abuse. 10. Hypothyroidism. PLAN: 1. Avoid PAULA inhibitors and ARBs. 2. Avoid nephrotoxic medications. 3. Avoid overdiuresis. Thank you, Dr. Matute, for letting me participate in the care of this interesting patient. Sandi Glasgow M.D. DR: DOMINIQUE JOB#: [id number] CC:
--- NOTE | 2019-05-15 19:17 | NUR ---
HAND-OFF: Report given to Nanda SCHROEDER.
--- NOTE | 2019-05-15 19:23 | NUR ---
NURSE NOTES: Report received from ELDA Stanton. Pt is in stable condition. Bed in lowest position, bed brakes engaged, side rails up x3 with call light within reach. Will continue to monitor
[2019-05-15] MEDS: Iron Sucrose 100 MG in NS 55 ML IV SCH ×2 (21:00→21:17)
--- NOTE | 2019-05-15 21:45 | Cardiology Report ---
APPROVED REPORT EKG Measurement Heart [id number] Normal sinus rhythm Normal ECG
[2019-05-16] VITALS: BP 123/65
--- NOTE | 2019-05-16 03:10 | NUR ---
NURSE NOTES: Pt stated she put tissue in the Addendum: 05/16/19 at 0312 by Vanesa Vee RN urine sample so it could not be collected. Pt flushed away 1 void. Patient was reminded to notify RN and save sample for 24 hour collection.
[2019-05-16 04:00] VITALS: BP 123/64
--- NOTE | 2019-05-16 04:01 | NUR ---
NURSE NOTES: Pt refused P200 mattress. Will endorse to day shift and try again.
--- NOTE | 2019-05-16 04:43 | NUR ---
NURSE NOTES: Pt had a BM and contaminated sample again. RN reiterated not to contaminate sample for 24 hour collection. Pt stated she can not urinate in separate basin from BM.
[2019-05-16] MEDS: Levothyroxine 125mcg tab ORAL SCH (05:48)
--- NOTE | 2019-05-16 07:03 | NUR ---
HAND-OFF: Report given to ELDA Stanton. Plan of care endorsed.
--- NOTE | 2019-05-16 07:05 | NUR ---
NOTES: Report received from ELDA Vee. Pt is in stable condition and resting with open eyes.call light with in reach, Bed in lowest position,side rails up x 3, bed brakes engaged.no c/o pain. per report: patient was not compliant with 24 hours urine collection, HCP will be notified. SN Will continue to monitor
[2019-05-16 08:13] VITALS: BP 114/67
[2019-05-16 08:22] LABS: ANION GAP 12 mmol/L (5-15); BLOOD UREA NITROGEN 40 mg/dL (7-18); CALCIUM 7.5 MG/DL (8.5-10.1); CARBON DIOXIDE 20 MMOL/L (21-32); CHLORIDE 107 MMOL/L (98-107); CREATININE 2.1 MG/DL (0.55-1.30); POTASSIUM 5.4 MMOL/L (3.5-5.1); SODIUM 139 MMOL/L (136-145)
[2019-05-16] MEDS: Aspirin EC 81mg tab ORAL SCH (09:02)
[2019-05-16] MEDS: Furosemide 40mg tab ORAL SCH (09:02)
[2019-05-16] MEDS: DULoxetine 30mg cap ORAL SCH (09:02)
[2019-05-16] MEDS: Metoprolol 25mg tab ORAL SCH ×2 (09:02→20:52)
[2019-05-16] MEDS: Zinc Sulfate 220mg cap ORAL SCH (09:02)
--- NOTE | 2019-05-16 11:30 | Nephrology Progress Note ---
Assessment/Plan Plan CKD IV with hyperkalemia - modify diet. Patient reluctant to collect urine. Subjective Subjective No new c/o Objective Objective Last 24 Hour Vital Signs Date Time Temp Pulse Resp B/P (MAP) Pulse Ox O2 Delivery O2 Flow Rate FiO2 05/16/19 09:15 Room Air 05/16/19 09:02 63 114/67 05/16/19 08:13 97.9 63 18 114/67 (83) 97 05/16/19 08:00 60 05/16/19 04:00 56 05/16/19 04:00 98.1 56 18 123/64 (83) 99 05/16/19 00:00 97.8 63 16 123/65 (84) 99 05/16/19 00:00 61 05/15/19 21:09 83 136/79 05/15/19 21:00 Room Air 05/15/19 20:00 98.2 83 18 138/79 (98) 99 05/15/19 20:00 65 05/15/19 16:29 97.6 64 16 144/62 (89) 100 05/15/19 16:00 64 05/15/19 12:00 97.7 67 18 117/55 (75) 97 05/15/19 12:00 67 Intake and Output 05/15/19 05/16/19 18:59 06:59 # Voids 2 # Bowel Movements 1 Laboratory Tests 05/16/19 07:45: Sodium Level 139, Potassium Level 5.4H, Chloride Level 107, Carbon Dioxide Level 20L, Anion Gap 12, Blood Urea Nitrogen 40H, Creatinine 2.1H, Estimat Glomerular Filtration Rate 24.2, Glucose Level 135H, Calcium Level 7.5L Height (Feet): 5 Height (Inches): 5.00 Weight (Pounds): 172 Objective Skin Multiple Ulcers B heel. Lt. Hip. CV RR Lungs CTA Abd SNT. BS + E ulcers as above. Lichen planus. Sandi Glasgow MD May 16, 2019 11:30
[2019-05-16 11:37] VITALS: BP 156/71
--- NOTE | 2019-05-16 11:38 | NUR ---
CASE MANAGEMENT:REVIEW 05/16/19 SI: HYPERKALEMIA. CKD. PRESSURE ULCERS 97.9 63 18 114/67 97% ON RA K-5.4 BUN+40 CR+2.1 CA-7.5 IS: EPOETIN SQ MWF IV VENOFER QHS ASA PO QD CYMBALTA PO QD LASIX PO QD LOPRESSOR PO Q12 PROTONIX PO QD METHADONE PO QD : TELEMETRY STATUS DCP: FROM [facility]
[2019-05-16] MEDS ORDERED: Sodium Polystyrene Sulfonate 15gm Powder ORAL SCH (13:00)
--- NOTE | 2019-05-16 13:35 | Surgery Progress Note ---
Surgery Progress Note Subjective Additional Comments potassium improved renal function improved left heel dressing bloody saturated today and changed. no active bleeding noted. otherwise stable. wants to go home soon Objective Last 24 Hour Vital Signs Date Time Temp Pulse Resp B/P (MAP) Pulse Ox O2 Delivery O2 Flow Rate FiO2 05/16/19 11:37 98.2 68 17 156/71 (99) 99 05/16/19 09:15 Room Air 05/16/19 09:02 63 114/67 05/16/19 08:13 97.9 63 18 114/67 (83) 97 05/16/19 08:00 60 05/16/19 04:00 56 05/16/19 04:00 98.1 56 18 123/64 (83) 99 05/16/19 00:00 97.8 63 16 123/65 (84) 99 05/16/19 00:00 61 05/15/19 21:09 83 136/79 05/15/19 21:00 Room Air 05/15/19 20:00 98.2 83 18 138/79 (98) 99 05/15/19 20:00 65 05/15/19 16:29 97.6 64 16 144/62 (89) 100 05/15/19 16:00 64 I&O Intake and Output 05/15/19 05/16/19 18:59 06:59 # Voids 2 # Bowel Movements 1 Dressing: saturated Wound: clean Cardiovascular: RSR Respiratory: clear Abdomen: soft, present bowel sounds, non-distended Extremities: edema, tenderness, no cyanosis Laboratory Tests Test 05/16/19 07:45 Sodium Level 139 MMOL/L (136-145) Potassium Level 5.4 MMOL/L (3.5-5.1) H Chloride Level 107 MMOL/L (98-107) Carbon Dioxide Level 20 MMOL/L (21-32) L Anion Gap 12 mmol/L (5-15) Blood Urea Nitrogen 40 mg/dL (7-18) H Creatinine 2.1 MG/DL (0.55-1.30) H Estimat Glomerular Filtration Rate 24.2 mL/min (>60) Glucose Level 135 MG/DL (74-106) H Calcium Level 7.5 MG/DL (8.5-10.1) L Plan Problems: (1) Anemia (2) Decubitus ulcer of left heel, stage 4 (3) Decubitus skin ulcer Assessment & Plan: 58 year old female presented with multiple decubitus ulcers. left heel stage 4 decubitus ulcer with some granulation tissue and sloth. periwound okay, no active infection, no odor, open wound present for many years as per patient. non tender. right elbow resolving decubitus ulcer with dry eschar, no drainage, no odor left hip large stage 4 decubitus ulcer, mild serous drainage, no odor, no active infection Tx Plan: wash left heel daily, apply hydrogel gauze, gauze, abd and kerlix wrap daily and prn right elbow place foam dressing left hip was daily and apply therahoney followed by gauze and foam dressing. turn q2h air mattress off load heels with pillow thank you (4) Renal insufficiency (5) Hyperkalemia, diminished renal excretion J Carlos Galicia May 16, 2019 13:34
--- NOTE | 2019-05-16 13:49 | NUR ---
RD ASSESSMENT & RECOMMENDATIONS SEE CARE ACTIVITY FOR COMPLETE ASSESSMENT DAILY ESTIMATED NEEDS: Needs based on Wounds, 57kg adj 30-35 kcals/kg 2802-9151 total kcals 1.25-2 g protein/kg 71-114 g total protein Fluid per MD, on lasix NUTRITION DIAGNOSIS: 1) Increased kcal and pro needs r/t wound healing as evidenced by stage 4 L heel wound. 2) Altered nutrition related lab values r/t clinical status and renal dysfunction as evidenced by elev K (6.5-> 5.4) w/ elev BUN and Creat. CURRENT DIET:Renal w/ HTL PO DIET RECOMMENDATIONS-->>Maintain renal diet; Add double protein protein portions ADDITIONAL RECOMMENDATIONS: [employer] eval for texture eval (currently on honey thick liquids) Wound care: Add BECKY BID + Vit C (dosage per MD) Add Nephrovite x1 daily Con't Zn SO4 220mg daily x10 days Obtain a CALIBRATED bed scale wt With current diet and po intake, monitor need for snacks / supplements
--- NOTE | 2019-05-16 14:31 | Pulmonology Progress Note ---
Assessment/Plan Assessment/Plan Pulmonary Progress Note Patient is a 58-year-old female presents from [facility] for abnormal labs - elevated potassium with elevated BUN/creatinine. Patient has renal dysfunction. Denies fevers or chills. No other aggravating relieving factors. Denies any other associated symptoms. intervention reviewed in the ER and now admitted. repeat K still elevated. Allergies: CLINDAMYCIN, VANCOMYCIN Past Medical History: DM, CHF, CKD, HTN Physical Vital Signs noted WDWN NAD clear breath sounds bilaterally without rhonchi or wheeze [id number] without MRG NABS nontender no HSM no CCE nonfocal Labs Noted Test 05/14/19 18:15 05/14/19 19:20 05/14/19 20:55 05/15/19 06:01 White Blood Count 6.4 K/UL (4.8-10.8) 6.4 K/UL (4.8-10.8) Red Blood Count 3.43 M/UL (4.20-5.40) 3.12 M/UL (4.20-5.40) Hemoglobin 9.9 G/DL (12.0-16.0) 8.9 G/DL (12.0-16.0) Hematocrit 32.1 % (37.0-47.0) 29.3 % (37.0-47.0) Mean Corpuscular Volume 93 FL (80-99) 94 FL (80-99) Mean Corpuscular Hemoglobin 28.9 PG (27.0-31.0) 28.6 PG (27.0-31.0) Mean Corpuscular Hemoglobin Concent 30.9 G/DL (32.0-36.0) 30.5 G/DL (32.0-36.0) Red Cell Distribution Width 15.6 % (11.6-14.8) 16.3 % (11.6-14.8) Platelet Count 210 K/UL (150-450) 173 K/UL (150-450) Mean Platelet Volume 5.9 FL (6.5-10.1) 5.7 FL (6.5-10.1) Neutrophils (%) (Auto) 66.2 % (45.0-75.0) 57.3 % (45.0-75.0) Lymphocytes (%) (Auto) 24.1 % (20.0-45.0) 29.0 % (20.0-45.0) Monocytes (%) (Auto) 6.4 % (1.0-10.0) 8.3 % (1.0-10.0) Eosinophils (%) (Auto) 2.4 % (0.0-3.0) 4.5 % (0.0-3.0) Basophils (%) (Auto) 1.0 % (0.0-2.0) 1.0 % (0.0-2.0) Troponin I 0.000 ng/mL (0.000-0.056) Sodium Level 133 MMOL/L (136-145) 132 MMOL/L (136-145) Potassium Level 6.5 MMOL/L (3.5-5.1) 6.3 MMOL/L (3.5-5.1) Chloride Level 104 MMOL/L (98-107) 104 MMOL/L (98-107) Carbon Dioxide Level 25 MMOL/L (21-32) 22 MMOL/L (21-32) Anion Gap 3 mmol/L (5-15) 6 mmol/L (5-15) Blood Urea Nitrogen 44 mg/dL (7-18) 45 mg/dL (7-18) Creatinine 2.8 MG/DL (0.55-1.30) 2.7 MG/DL (0.55-1.30) Estimat Glomerular Filtration Rate 17.4 mL/min (>60) 18.1 mL/min (>60) Glucose Level 141 MG/DL (74-106) 88 MG/DL (74-106) Calcium Level 7.8 MG/DL (8.5-10.1) 7.9 MG/DL (8.5-10.1) Total Bilirubin 0.2 MG/DL (0.2-1.0) Aspartate Amino Transf (AST/SGOT) 55 U/L (15-37) Alanine Aminotransferase (ALT/SGPT) 36 U/L (12-78) Alkaline Phosphatase 178 U/L (46-116) Total Creatine Kinase 37 U/L (26-308) Creatine Kinase MB 1.1 NG/ML (0.0-3.6) Creatine Kinase MB Relative Index 2.9 Pro-B-Type Natriuretic Peptide 715 pg/mL (0-125) Total Protein 9.5 G/DL (6.4-8.2) Albumin 1.9 G/DL (3.4-5.0) Globulin 7.6 g/dL Albumin/Globulin Ratio 0.2 (1.0-2.7) Urine Color Pale yellow Urine Appearance Clear Urine pH 5 (4.5-8.0) Urine Specific [place] 1.015 (1.005-1.035) Urine Protein 3+ (NEGATIVE) Urine Glucose (UA) Negative (NEGATIVE) Urine Ketones Negative (NEGATIVE) Urine Blood 2+ (NEGATIVE) Urine Nitrite Negative (NEGATIVE) Urine Bilirubin Negative (NEGATIVE) Urine Urobilinogen Normal MG/DL (0.0-1.0) Urine Leukocyte Esterase 1+ (NEGATIVE) Urine RBC 2-4 /HPF (0 - 2) Urine WBC 0-2 /HPF (0 - 2) Urine Squamous Epithelial Cells Occasional /LPF Urine Bacteria Few /HPF (NONE) Test 05/15/19 11:15 Sodium Level 136 MMOL/L (136-145) Potassium Level 5.8 MMOL/L (3.5-5.1) Chloride Level 108 MMOL/L (98-107) Carbon Dioxide Level 24 MMOL/L (21-32) Anion Gap 4 mmol/L (5-15) Blood Urea Nitrogen 44 mg/dL (7-18) Creatinine 2.5 MG/DL (0.55-1.30) Estimat Glomerular Filtration Rate 19.8 mL/min (>60) Glucose Level 103 MG/DL (74-106) Calcium Level 7.9 MG/DL (8.5-10.1) Iron Level 80 ug/dL (50-175) Total Iron Binding Capacity 172 ug/dL (250-450) Percent Iron Saturation 47 % (15-50) Unsaturated Iron Binding 92 ug/dL (112-346) Ferritin 456 NG/ML (8-388) IMPRESSION CKD Hyperkalemia CHF diabetes hypertension pressure ulcers PLAN kayexalate follow up labs meds as is wound care monitor for change impression, plan, and exam edited and reviewed in detail Subjective ROS Limited/Unobtainable: No Constitutional: Reports: fatigue Allergies: Coded Allergies: CLINDAMYCIN (Verified Allergy, Unknown, 05/14/19) VANCOMYCIN (Verified Allergy, Unknown, 05/14/19) Objective Last 24 Hour Vital Signs Date Time Temp Pulse Resp B/P (MAP) Pulse Ox O2 Delivery O2 Flow Rate FiO2 05/16/19 11:37 98.2 68 17 156/71 (99) 99 05/16/19 09:15 Room Air 05/16/19 09:02 63 114/67 05/16/19 08:13 97.9 63 18 114/67 (83) 97 05/16/19 08:00 60 05/16/19 04:00 56 05/16/19 04:00 98.1 56 18 123/64 (83) 99 05/16/19 00:00 97.8 63 16 123/65 (84) 99 05/16/19 00:00 61 05/15/19 21:09 83 136/79 05/15/19 21:00 Room Air 05/15/19 20:00 98.2 83 18 138/79 (98) 99 05/15/19 20:00 65 05/15/19 16:29 97.6 64 16 144/62 (89) 100 05/15/19 16:00 64 Intake and Output 05/15/19 05/16/19 19:00 07:00 # Voids 2 # Bowel Movements 1 Microbiology Date/Time Source Procedure Growth Status 05/15/19 05:45 Hip Left Gram Stain - Final Resulted 05/15/19 05:45 Wound Culture - Preliminary Gram Negative Bacillus 1 Gram Negative Bacillus 2 Resulted Laboratory Tests 05/16/19 07:45: Sodium Level 139, Potassium Level 5.4H, Chloride Level 107, Carbon Dioxide Level 20L, Anion Gap 12, Blood Urea Nitrogen 40H, Creatinine 2.1H, Estimat Glomerular Filtration Rate 24.2, Glucose Level 135H, Calcium Level 7.5L Current Medications Medications (Trade) Dose Ordered Sig/Miguelina Route PRN Reason Start Time Stop Time Status Last Admin Dose Admin Acetaminophen (Tylenol) 325 mg Q4H PRN ORAL For Pain and Fever >100.5 05/15/19 01:15 06/14/19 01:14 Al Hydroxide/Mg Hydroxide (Mylanta) 30 ml Q4H PRN ORAL heart burn and indigestion 05/15/19 01:15 06/14/19 01:14 Aspirin (Ecotrin) 81 mg DAILY ORAL 05/15/19 09:00 06/14/19 08:59 05/16/19 09:02 Diphenhydramine HCl (Benadryl) 25 mg Q6H PRN ORAL Itching 05/15/19 01:15 06/14/19 01:14 Duloxetine HCl (Cymbalta) 30 mg DAILY ORAL 05/15/19 09:00 06/14/19 08:59 05/16/19 09:02 Epoetin Sam (Epoetin Sam-EPBX(NON ESRD)) 6,000 unit SUN-SUN-SUN SUBQ 05/16/19 21:00 06/15/19 20:59 Furosemide (Lasix) 40 mg DAILY ORAL 05/15/19 09:00 06/14/19 08:59 05/16/19 09:02 Iron Sucrose 100 mg/Sodium Chloride 60 ml @ 240 mls/hr BEDTIME IV 05/15/19 21:00 05/19/19 21:14 Levothyroxine Sodium (Synthroid) 125 mcg DAILY@0630 ORAL 05/15/19 06:30 06/14/19 06:29 05/16/19 05:48 Methadone HCl (Methadone HCl) 40 mg DAILY ORAL 05/15/19 09:00 05/22/19 08:59 05/16/19 09:01 Metoprolol Tartrate (Lopressor) 25 mg EVERY 12 HOURS ORAL 05/15/19 09:00 06/14/19 08:59 05/16/19 09:02 Pantoprazole (Protonix) 40 mg DAILY ORAL 05/15/19 09:00 06/14/19 08:59 05/16/19 09:03 Zinc Sulfate (Zinc Sulfate) 220 mg DAILY ORAL 05/15/19 09:00 06/14/19 08:59 05/16/19 09:02 Junior Khan MD May 16, 2019 14:31
[2019-05-16 16:37] VITALS: BP 144/69
--- NOTE | 2019-05-16 19:10 | NUR ---
HAND-OFF: Report given to Bridger SCHROEDER.
--- NOTE | 2019-05-16 19:20 | NUR ---
NURSE NOTES: Received pt from day shift nurse, pt in bed stable, no acute distress noted. no c/o pain at this moment. pt refusing IV access insertion, Dr Matute aware, education reinforced about importance of having IV access, pt still refused the IV access insertion.bed locked and lowest position, bedside rail up x2, call light and personal belonging, within reach. will continue to monitor pt for any change in condition.
[2019-05-16 20:00] VITALS: BP 146/69
[2019-05-16] MEDS: Iron Sucrose 100 MG in NS 55 ML IV SCH (20:29)
[2019-05-16] MEDS ORDERED: Epoetin Alfa-EPBX (NON ESRD) 3000 units/ml vial SUBQ SCH (21:00)
--- NOTE | 2019-05-16 21:30 | NUR ---
NURSE NOTES: unable to administer venofer, pt refusing IV access insertion, education provided, pt still refused even after education
[2019-05-17] VITALS: BP 146/68
--- NOTE | 2019-05-17 | NUR ---
NURSE NOTES: pt sleeping, no change in condition, will continue to monitor for any change in condition.
--- NOTE | 2019-05-17 03:14 | NUR ---
HAND-OFF: Report given to Nafisa Edwards.pt aleyda.
--- NOTE | 2019-05-17 03:14 | NUR ---
NURSE NOTES: Report received from Elizabeth Sparks RN. Pt is resting in bed in stable condition. Pt is on room air and breathing is even and unlabored. No acute distress noted. No IV site at this time, pt is refusing. MD Matute is aware. Bed is in lowest position with brake engaged, side rails up x3, and bed alarm on. Call light and side table placed within reach. Fall precautions noted to be in place. Family member is at bedside with patient. Will continue to monitor.
[2019-05-17 04:00] VITALS: BP 138/69
--- NOTE | 2019-05-17 04:48 | NUR ---
NURSE NOTES: [facility] - L hip wound culture is positive for isolated ESBL. Will notify MD and follow up as appropriate.
--- NOTE | 2019-05-17 06:21 | NUR ---
NURSE NOTES: MD Matute informed that pt L hip wound culture positive for isolated ESBL. Sensitivity communicated with . Per , place order for Ciprofloxacin 500mg PO BID x 7 days. Orders noted and carried out.
[2019-05-17] MEDS: Levothyroxine 125mcg tab ORAL SCH (06:47)
--- NOTE | 2019-05-17 07:18 | NUR ---
HAND-OFF: Report given to Fercho Mary RN. Pt is resting in bed in stable condition. No acute distress noted. Endorsed plan of care.
--- NOTE | 2019-05-17 07:45 | NUR ---
NURSE NOTES: Report received from ELDA Edwards. Pt is lying comfortably in semi-fowlers with no signs of distress. A+Ox4, denies pain/SOB. Respirations are even and unlabored on room air. Pt has no IV access due to refusal; MD aware. Bed is at lowest position, brakes engaged, siderails x2, bed alarm on, and call light within reach. Pt is in stable condition; will continue to monitor.
[2019-05-17 08:00] VITALS: BP 132/60
[2019-05-17] MEDS: DULoxetine 30mg cap ORAL SCH ×2 (09:00→09:19)
[2019-05-17] MEDS ORDERED: Ciprofloxacin 500mg tab ORAL SCH (09:00)
--- NOTE | 2019-05-17 09:07 | General Progress Note ---
Assessment/Plan Assessment/Plan: IMPRESSION CKD Hyperkalemia CHF diabetes hypertension pressure ulcers UTI PLAN kayexalate given check BMP Ertapenem IV and Cipro follow up labs meds as is wound care monitor for change and recommend further impression, plan, and exam edited and reviewed in detail care discussed with RN Subjective Allergies: Coded Allergies: CLINDAMYCIN (Verified Allergy, Unknown, 05/14/19) VANCOMYCIN (Verified Allergy, Unknown, 05/14/19) Subjective care noted ESBL urine Objective Last 24 Hour Vital Signs Date Time Temp Pulse Resp B/P (MAP) Pulse Ox O2 Delivery O2 Flow Rate FiO2 05/17/19 08:00 65 05/17/19 08:00 98.2 64 18 132/60 (84) 98 05/17/19 04:00 98.6 65 18 138/69 (92) 97 05/17/19 04:00 65 05/17/19 00:00 98.4 59 18 146/68 (94) 97 05/17/19 00:00 59 05/16/19 21:00 Room Air 05/16/19 20:52 60 146/69 05/16/19 20:00 98.0 60 19 146/69 (94) 99 05/16/19 20:00 61 05/16/19 16:37 98.0 56 18 144/69 (94) 100 05/16/19 16:00 60 05/16/19 12:00 65 05/16/19 11:37 98.2 68 17 156/71 (99) 99 05/16/19 09:15 Room Air Intake and Output 05/16/19 05/17/19 18:59 06:59 Intake Total 900 ml Balance 900 ml Other 900 ml # Voids 2 Labs Test 05/14/19 18:15 05/14/19 19:20 05/14/19 20:55 05/15/19 06:01 White Blood Count 6.4 K/UL (4.8-10.8) 6.4 K/UL (4.8-10.8) Red Blood Count 3.43 M/UL (4.20-5.40) 3.12 M/UL (4.20-5.40) Hemoglobin 9.9 G/DL (12.0-16.0) 8.9 G/DL (12.0-16.0) Hematocrit 32.1 % (37.0-47.0) 29.3 % (37.0-47.0) Mean Corpuscular Volume 93 FL (80-99) 94 FL (80-99) Mean Corpuscular Hemoglobin 28.9 PG (27.0-31.0) 28.6 PG (27.0-31.0) Mean Corpuscular Hemoglobin Concent 30.9 G/DL (32.0-36.0) 30.5 G/DL (32.0-36.0) Red Cell Distribution Width 15.6 % (11.6-14.8) 16.3 % (11.6-14.8) Platelet Count 210 K/UL (150-450) 173 K/UL (150-450) Mean Platelet Volume 5.9 FL (6.5-10.1) 5.7 FL (6.5-10.1) Neutrophils (%) (Auto) 66.2 % (45.0-75.0) 57.3 % (45.0-75.0) Lymphocytes (%) (Auto) 24.1 % (20.0-45.0) 29.0 % (20.0-45.0) Monocytes (%) (Auto) 6.4 % (1.0-10.0) 8.3 % (1.0-10.0) Eosinophils (%) (Auto) 2.4 % (0.0-3.0) 4.5 % (0.0-3.0) Basophils (%) (Auto) 1.0 % (0.0-2.0) 1.0 % (0.0-2.0) Troponin I 0.000 ng/mL (0.000-0.056) Sodium Level 133 MMOL/L (136-145) 132 MMOL/L (136-145) Potassium Level 6.5 MMOL/L (3.5-5.1) 6.3 MMOL/L (3.5-5.1) Chloride Level 104 MMOL/L (98-107) 104 MMOL/L (98-107) Carbon Dioxide Level 25 MMOL/L (21-32) 22 MMOL/L (21-32) Anion Gap 3 mmol/L (5-15) 6 mmol/L (5-15) Blood Urea Nitrogen 44 mg/dL (7-18) 45 mg/dL (7-18) Creatinine 2.8 MG/DL (0.55-1.30) 2.7 MG/DL (0.55-1.30) Estimat Glomerular Filtration Rate 17.4 mL/min (>60) 18.1 mL/min (>60) Glucose Level 141 MG/DL (74-106) 88 MG/DL (74-106) Calcium Level 7.8 MG/DL (8.5-10.1) 7.9 MG/DL (8.5-10.1) Total Bilirubin 0.2 MG/DL (0.2-1.0) Aspartate Amino Transf (AST/SGOT) 55 U/L (15-37) Alanine Aminotransferase (ALT/SGPT) 36 U/L (12-78) Alkaline Phosphatase 178 U/L (46-116) Total Creatine Kinase 37 U/L (26-308) Creatine Kinase MB 1.1 NG/ML (0.0-3.6) Creatine Kinase MB Relative Index 2.9 Pro-B-Type Natriuretic Peptide 715 pg/mL (0-125) Total Protein 9.5 G/DL (6.4-8.2) Albumin 1.9 G/DL (3.4-5.0) Globulin 7.6 g/dL Albumin/Globulin Ratio 0.2 (1.0-2.7) Urine Color Pale yellow Urine Appearance Clear Urine pH 5 (4.5-8.0) Urine Specific [place] 1.015 (1.005-1.035) Urine Protein 3+ (NEGATIVE) Urine Glucose (UA) Negative (NEGATIVE) Urine Ketones Negative (NEGATIVE) Urine Blood 2+ (NEGATIVE) Urine Nitrite Negative (NEGATIVE) Urine Bilirubin Negative (NEGATIVE) Urine Urobilinogen Normal MG/DL (0.0-1.0) Urine Leukocyte Esterase 1+ (NEGATIVE) Urine RBC 2-4 /HPF (0 - 2) Urine WBC 0-2 /HPF (0 - 2) Urine Squamous Epithelial Cells Occasional /LPF Urine Bacteria Few /HPF (NONE) Test 05/15/19 11:15 05/16/19 07:45 Sodium Level 136 MMOL/L (136-145) 139 MMOL/L (136-145) Potassium Level 5.8 MMOL/L (3.5-5.1) 5.4 MMOL/L (3.5-5.1) Chloride Level 108 MMOL/L (98-107) 107 MMOL/L (98-107) Carbon Dioxide Level 24 MMOL/L (21-32) 20 MMOL/L (21-32) Anion Gap 4 mmol/L (5-15) 12 mmol/L (5-15) Blood Urea Nitrogen 44 mg/dL (7-18) 40 mg/dL (7-18) Creatinine 2.5 MG/DL (0.55-1.30) 2.1 MG/DL (0.55-1.30) Estimat Glomerular Filtration Rate 19.8 mL/min (>60) 24.2 mL/min (>60) Glucose Level 103 MG/DL (74-106) 135 MG/DL (74-106) Calcium Level 7.9 MG/DL (8.5-10.1) 7.5 MG/DL (8.5-10.1) Iron Level 80 ug/dL (50-175) Total Iron Binding Capacity 172 ug/dL (250-450) Percent Iron Saturation 47 % (15-50) Unsaturated Iron Binding 92 ug/dL (112-346) Ferritin 456 NG/ML (8-388) Height (Feet): 5 Height (Inches): 5.00 Weight (Pounds): 172 Manolo Matute MD May 17, 2019 09:07
[2019-05-17] MEDS: Aspirin EC 81mg tab ORAL SCH (09:17)
[2019-05-17] MEDS: Metoprolol 25mg tab ORAL SCH (09:19)
[2019-05-17] MEDS: Zinc Sulfate 220mg cap ORAL SCH (09:19)
[2019-05-17] MEDS: Furosemide 40mg tab ORAL SCH (09:19)
[2019-05-17] MEDS ORDERED: Ertapenem 1 GM in NS 55 ML IVPB SCH (10:00)
[2019-05-17 11:37] LABS: ANION GAP 6 mmol/L (5-15); BLOOD UREA NITROGEN 39 mg/dL (7-18); CALCIUM 7.5 MG/DL (8.5-10.1); CARBON DIOXIDE 25 MMOL/L (21-32); CHLORIDE 105 MMOL/L (98-107); POTASSIUM 4.6 MMOL/L (3.5-5.1); SODIUM 136 MMOL/L (136-145)
[2019-05-17 12:00] VITALS: BP 130/72
--- NOTE | 2019-05-17 12:03 | NUR ---
NURSE NOTES: Made Dr. Matute aware of patient's potassium level of 4.6. He said to DC back to SNF and continue ertapenem x 6 more days.
[2019-05-17] MEDS ORDERED: ERTAPENEM1 GM IVPB (12:12)
--- NOTE | 2019-05-17 12:34 | Nephrology Progress Note ---
Assessment/Plan Plan CKD IV with hyperkalemia - modify diet. Patient reluctant to collect urine. K 4.6 DC to SNF noted. Subjective Subjective No new c/o Objective Objective Last 24 Hour Vital Signs Date Time Temp Pulse Resp B/P (MAP) Pulse Ox O2 Delivery O2 Flow Rate FiO2 05/17/19 12:00 98.0 62 18 130/72 (91) 99 05/17/19 12:00 65 05/17/19 09:19 65 132/60 05/17/19 09:00 Room Air 05/17/19 08:00 65 05/17/19 08:00 98.2 64 18 132/60 (84) 98 05/17/19 04:00 98.6 65 18 138/69 (92) 97 05/17/19 04:00 65 05/17/19 00:00 98.4 59 18 146/68 (94) 97 05/17/19 00:00 59 05/16/19 21:00 Room Air 05/16/19 20:52 60 146/69 05/16/19 20:00 98.0 60 19 146/69 (94) 99 05/16/19 20:00 61 05/16/19 16:37 98.0 56 18 144/69 (94) 100 05/16/19 16:00 60 Intake and Output 05/16/19 05/17/19 18:59 06:59 Intake Total 900 ml Balance 900 ml Other 900 ml # Voids 2 Laboratory Tests 05/17/19 10:55: Sodium Level 136, Potassium Level 4.6, Chloride Level 105, Carbon Dioxide Level 25, Anion Gap 6, Blood Urea Nitrogen 39H, Creatinine 2.0H, Estimat Glomerular Filtration Rate 25.6, Glucose Level 185H, Calcium Level 7.5L Height (Feet): 5 Height (Inches): 5.00 Weight (Pounds): 172 Objective Skin Multiple Ulcers B heel. Lt. Hip. CV RR Lungs CTA Abd SNT. BS + E ulcers as above. Lichen planus. Sandi Glasgow MD May 17, 2019 12:34
--- NOTE | 2019-05-17 13:28 | NUR ---
NURSE NOTES: patient is for discharge to [facility], called the facility and spoke with Noemy SCHROEDER core assembly supervisor and she stated pt have a be in rm 11 and will take the patient.
--- NOTE | 2019-05-17 14:25 | NUR ---
NURSE NOTES: Per Dr. Kasi Vargas, ESBL wound is colonized.
--- NOTE | 2019-05-17 14:42 | NUR ---
NURSE NOTES: Nurse report hands off given to receiving nurse at [facility]
[2019-05-17 16:00] VITALS: BP 161/68
--- NOTE | 2019-05-17 16:00 | Surgery Progress Note ---
Surgery Progress Note Subjective Additional Comments Patient seen and examined at bedside. No acute events. States she is feeling well. Wound dressing changes going well. No complaints labs noted Objective Last 24 Hour Vital Signs Date Time Temp Pulse Resp B/P (MAP) Pulse Ox O2 Delivery O2 Flow Rate FiO2 05/17/19 12:00 98.0 62 18 130/72 (91) 99 05/17/19 12:00 65 05/17/19 09:19 65 132/60 05/17/19 09:00 Room Air 05/17/19 08:00 65 05/17/19 08:00 98.2 64 18 132/60 (84) 98 05/17/19 04:00 98.6 65 18 138/69 (92) 97 05/17/19 04:00 65 05/17/19 00:00 98.4 59 18 146/68 (94) 97 05/17/19 00:00 59 05/16/19 21:00 Room Air 05/16/19 20:52 60 146/69 05/16/19 20:00 98.0 60 19 146/69 (94) 99 05/16/19 20:00 61 05/16/19 16:37 98.0 56 18 144/69 (94) 100 05/16/19 16:00 60 I&O Intake and Output 05/16/19 05/17/19 18:59 06:59 Intake Total 900 ml Balance 900 ml Other 900 ml # Voids 2 Dressing: dry Wound: clean Drains: none Cardiovascular: RSR Respiratory: clear Abdomen: soft, non-tender, present bowel sounds Extremities: edema, tenderness, no cyanosis Laboratory Tests Test 05/17/19 10:55 Sodium Level 136 MMOL/L (136-145) Potassium Level 4.6 MMOL/L (3.5-5.1) Chloride Level 105 MMOL/L (98-107) Carbon Dioxide Level 25 MMOL/L (21-32) Anion Gap 6 mmol/L (5-15) Blood Urea Nitrogen 39 mg/dL (7-18) H Creatinine 2.0 MG/DL (0.55-1.30) H Estimat Glomerular Filtration Rate 25.6 mL/min (>60) Glucose Level 185 MG/DL (74-106) H Calcium Level 7.5 MG/DL (8.5-10.1) L Plan Problems: (1) Anemia Assessment & Plan: DAILY ESTIMATED NEEDS: Needs based on Wounds, 57kg adj 30-35 kcals/kg 4504-1989 total kcals 1.25-2 g protein/kg 71-114 g total protein Fluid per MD, on lasix NUTRITION DIAGNOSIS: 1) Increased kcal and pro needs r/t wound healing as evidenced by stage 4 L heel wound. 2) Altered nutrition related lab values r/t clinical status and renal dysfunction as evidenced by elev K (6.5-> 5.4) w/ elev BUN and Creat. 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 left heel stage 4 decubitus ulcer with some granulation tissue and sloth. periwound okay, no active infection, no odor, open wound present for many years as per patient. non tender. right elbow resolving decubitus ulcer with dry eschar, no drainage, no odor left hip large stage 4 decubitus ulcer, mild serous drainage, no odor, no active infection Tx Plan: wash left heel daily, apply hydrogel gauze, gauze, abd and kerlix wrap daily and prn right elbow place foam dressing left hip was daily and apply therahoney followed by gauze and foam dressing. turn q2h air mattress off load heels with pillow thank you (4) Renal insufficiency (5) Hyperkalemia, diminished renal excretion J Carlos Galicia May 17, 2019 16:00
--- NOTE | 2019-05-17 16:16 | Diagnostic Imaging Report ---
EXAM: XR Left Foot Complete, 3 or More Views CLINICAL HISTORY: OSTEOMYELITIS TECHNIQUE: Frontal, lateral and oblique views of the left foot. COMPARISON: No relevant prior studies available. FINDINGS: Bones/joints: Extensive degenerative changes at the tibiotalar, talocalcaneal, and talonavicular joints. Diffuse osseous demineralization/osteopenia. Soft tissues: Extensive soft tissue swelling throughout the ankle and hindfoot. No radiodense foreign bodies. No soft tissue gas lucencies. Other findings: Flattening of the plantar arch. IMPRESSION: 1. Extensive soft tissue swelling throughout the ankle and hindfoot. 2. Flattening of the plantar arch. 3. Extensive degenerative changes at the tibiotalar, talocalcaneal, and talonavicular joints. 4. Diffuse osseous demineralization/osteopenia. If there is clinical concern for osteomyelitis, further evaluation with contrast-enhanced MRI or with a nuclear medicine bone scan may be considered.
--- NOTE | 2019-05-17 17:15 | Consultation ---
DATE OF CONSULTATION: 05/17/2019 INFECTIOUS DISEASES CONSULTATION This consult is for coverage of Dr. Alfonso. CONSULTING PHYSICIAN: Lorenzo Vargas M.D. PRIMARY ATTENDING PHYSICIAN: Manolo Matute M.D. REASON FOR CONSULT: Wound infection. HISTORY OF PRESENT ILLNESS: This is a 58-year-old female admitted on May 14, from a care home facility because of hyperkalemia and increase in BUN and creatinine. She has history of diabetes mellitus and chronic kidney disease. She has history of chronic osteomyelitis and wound in the left heel area. [facility] and then had some secretions from the wound. Denies any fever or chills. PAST MEDICAL HISTORY: Significant for diabetes mellitus, CHF, chronic kidney disease, hypertension, anemia, heroin abuse, had right foot fracture, left hip fracture, hypothyroidism, and hepatitis C. ALLERGIES: Allergic to clindamycin and vancomycin. MEDICATIONS: Getting ertapenem, Epogen, iron, sucrose, aspirin, duloxetine, Lasix, metoprolol, zinc, methadone, Protonix, levothyroxine, Tylenol, diphenhydramine, and Mylanta. SOCIAL HISTORY: detention resident. Single, 5 children. Quit smoking 3 years ago. She has history of heroin abuse for the past 3 years. She also was on methadone. REVIEW OF SYSTEMS: No change in vision. No fever. No coughing. No chest pain. No nausea. Vomiting today. She had some nausea and vomiting yesterday. No difficulty on passing urine. He has decreased sensation of legs. She is wheelchair-bound. PHYSICAL EXAMINATION: VITAL SIGNS: Temperature 98.2, pulse 64, blood pressure 132/60. GENERAL APPEARANCE: No acute distress. HEAD AND NECK: [place] conjunctivae. She has poor dentition. HEART: Normal rate. LUNGS: Clear. ABDOMEN: Soft and nontender. EXTREMITIES: She has edema and chronic stasis dermatitis in lower extremity bilaterally. She has deformity of right foot. SKIN: She has multiple pressure ulcers including a left foot stage IV, left hip, right elbow. NEUROLOGIC: The patient is awake, alert, oriented, and has decreased sensation in both legs. LABORATORY DATA: Sodium 139, potassium 5.4. Potassium at the time of admission was 6.3. BUN 40, creatinine 2.1. Creatinine at the time of admission was 2.8. AST 55, alkaline phosphatase 178. Wound culture from hip area showed Klebsiella and Proteus. Klebsiella was ESBL. MRSA screen was negative. IMPRESSION: Diabetic foot with infection, likely cellulitis, chronic osteomyelitis, has also Charcot deformity of right foot, chronic kidney disease with hyperkalemia, has diabetes mellitus, anemia, history of hepatitis C, hypothyroidism, and hypertension. RECOMMENDATION: We will continue with ertapenem. We will order an x-ray of left foot for evaluation of osteomyelitis. At the end of my exam, I thank Dr. Matute for involving me in the care of this patient. Lorenzo Vargas M.D. DR: RIAZ JOB#: [id number] CC:
[2019-05-17] MEDS ORDERED: NS 275ml ONE (17:19)
[2019-05-17] MEDS ORDERED: Tubing IV Secondary IV ONE (17:19)
--- NOTE | 2019-05-17 17:47 | NUR ---
NURSE NOTES: Patient's transferred to [facility] by [facility] at 1720. front desk monitor removed, ID band was cut and removed. Discharged package sent to SNF, belonging list signed by patient. Per Doctor Giovani's order to leave IV in to continue antibiotic in SNF. Patient was in stable condition, VS stable, no sign of distress or SOB. Patient's transferred safely by [facility]terney off the floor. Report was given to Noemy at [facility].
--- NOTE | 2019-05-19 09:00 | Discharge Summary ---
Discharge Summary Discharge Summary _ DATE OF ADMISSION: 05/14/2019 DATE OF DISCHARGE: 05/17/2019 DISCHARGED BY: Dr. Matute REASON FOR ADMISSION: 58 years old female, resident of intermediate facility, with past medical history of diabetes mellitus, congestive heart failure, chronic kidney disease, hypertension, hypothyroidism, hepatitis C, history of heroine abuse, was sent for evaluation due to abnormal labs. Labs showed elevated potassium and elevated BUN and creatinine. No fever, no chills. No chest pain or shortness of breath. Upon evaluation in emergency department laboratory work-up revealed no leukocytosis , hemoglobin 9.9 , hematocrit 32.1 , platelets 210. Sodium 133, potassium 6.5. BUN 44, creatinine 2.8. Glucose 141. Pro BNP 715. Albumin 1.9. Urinalysis revealed +1 leukocyte esterase , no blood , no pyuria , and few bacteria. EKG revealed normal sinus rhythm , no acute ischemic changes. Chest x-ray revealed no acute cardiopulmonary pathology. Patient subsequently admitted to monitored floor for further evaluation and management. CONSULTANTS: ID specialist Dr. Griffith executive receptionist Dr. [facility] Dr. Galicia [facility] COURSE: Patient admitted to telemetry floor. Hyperkalemia was treated. Telemetry revealed sinus rhythm. Patient Account Analyst followed. Renal ultrasound demonstrated no acute findings: No hydronephrosis. No visible stones. Normal bilateral kidney echogenicity. Normal cortical thickness. Renal parameters and electrolytes were closely monitored, electrolytes further corrected as needed. Nephrotoxins were avoided. Prior to discharge potassium 4.6. BUN from 44 down to 39 and creatinine from 2.8 down to 2.0. Per executive receptionist, patient has chronic kidney disease stage IV. Renal diet was provided. Urine studies were ordered. Surgeon followed for present on admission decubitus ulcers of left heel stage IV , left hip stage 4 . Right elbow decubitus ulcer was resolving with dry eschar. No odor no drainage. Wound care provided as per surgeon recommendation. Nutritional recommendations implemented in plan of care. Wound culture of left hip wound revealed Klebsiella pneumonia ESBL and Proteus. Antibiotics provided as per infectious disease recommendations. Complete antibiotic course at the facility as recommended by ID specialist. X-ray of the left foot revealed extensive soft tissue swelling throughout the ankle and hindfoot. Flattening of the plantar arch. Extensive degenerative changes at the tibiotalar, talocalcaneal, and talonavicular joints. Diffuse osseous demineralization/osteopenia. Further evaluation with MRI or bone scan may be considered if there was a clinical concern for osteomyelitis. Per surgeon surgeon, no evidence of infection of the left foot ulcer. Continue wound care at the facility. Blood pressure was managed with beta-adelaida and angiotensin receptor adelaida , and remained stable. Antiplatelet therapy with aspirin continued. Lasix continued with close monitoring of volumes and cardiorenal parameters. GI prophylaxis provided. Hemoglobin and hematocrit were closely monitored with goal to keep hemoglobin above 7. Anemia work-up revealed stable iron and ferritin of 456. Last hemoglobin 8.9, hematocrit 29.3. Blood sugar was closely monitored. Supportive care provided. Bowel regimen instituted. Pain management was addressed . Patient is on chronic methadone due to history of heroine abuse. Patient clinically stabilized and was ready for transfer back to intermediate facility for continuation of care. FINAL DIAGNOSES: Chronic kidney disease stage IV Hyperkalemia Congestive heart failure Diabetes mellitus Hypertension Pressure ulcers, present on admission: stage IV left heel, stage IV left hip, DISCHARGE MEDICATIONS: See Medication Reconciliation list. DISCHARGE INSTRUCTIONS: Patient was discharged to the intermediate facility. Follow up with medical doctor at the facility. I have been assigned to dictate discharge summary for this account. I was not involved in the patient's management. Charissa Yates NP May 19, 2019 09:00
== END 2019-05-17 17:20 | DRG 640 ==
LOC: EDBD 17:51 → EMR 18:47 → 2E 21:04 → EDBEDREQ 21:48 → 2E 22:21
DX: E87.5 Hyperkalemia (principal); L89.224 Pressure ulcer of left hip, stage 4; L89.624 Pressure ulcer of left heel, stage 4; I13.0 Hypertensive heart and chronic kidney disease with heart failure and stage 1 through stage 4 chronic kidney disease, or unspecified chronic kidney disease; N18.4 Chronic kidney disease, stage 4 (severe); M86.8X8 Other osteomyelitis, other site; L03.116 Cellulitis of left lower limb; E11.22 Type 2 diabetes mellitus with diabetic chronic kidney disease; N18.3 Chronic kidney disease, stage 3 (moderate); Z88.1 Allergy status to other antibiotic agents; I50.9 Heart failure, unspecified; D64.9 Anemia, unspecified; E03.9 Hypothyroidism, unspecified; Z87.891 Personal history of nicotine dependence; F11.10 Opioid abuse, uncomplicated; B96.1 Klebsiella pneumoniae [K. pneumoniae] as the cause of diseases classified elsewhere; B96.4 Proteus (mirabilis) (morganii) as the cause of diseases classified elsewhere; Z16.12 Extended spectrum beta lactamase (ESBL) resistance; Z86.19 Personal history of other infectious and parasitic diseases
CPT/HCPCS: 36415; 71045; 76770; 80048; 80053; 81003; 82550; 82553; 82728; 83540; 83550; 83880; 84484; 85025; 87070; 87081; 87181; 87205; 93005; 96374; 96375; 99285

== ENCOUNTER 2019-10-31 16:57 | Inpatient (IN) | payer MEDICARE, MEDICAID ==
[~2019-10-31] VITALS: Ht 165.1 cm; Wt 74.8 kg
[~2019-10-31 16:57] MED LIST: ACETAMINOPHEN325 M1 ORAL; AQUAPHOR99 GM TP; ASPIR 8181 MG ORAL; BENADRYL25 MG ORAL; CYMBALTA30 MG ORAL; ERTAPENEM1 GM IVPB; FERROUS SULFAT325 MG ORAL; FUROSEMIDE40 MG ORAL; HEPARIN 50100 UNIT/1 IV; LEVOTHYROXINE125 MCG ORAL; LOSARTAN POTASS50 MG ORAL; METHADONE10 MG/1 M2 PO; METOPROLOL TART25 MG ORAL; ZINC SULFATE220 M1 ORAL
--- NOTE | 2019-10-31 17:19 | NUR ---
ED Nurse Note: Pt brought in by ambulance w/ c/o edema to general body. P thas non-pitting edema on face and bilat arms, and 5+pitting edema bilat legs. Pt set up on monitor. No acute distress.
--- NOTE | 2019-10-31 17:48 | Diagnostic Imaging Report ---
EXAM: XR Chest, 1 View CLINICAL HISTORY: Shortness of breath TECHNIQUE: Frontal view of the chest. COMPARISON: Image from exam performed 05/14/2019 is unavailable, only prior report is available. FINDINGS: Lungs: Mild pulmonary vascular congestion. No consolidation. Pleural space: No significant abnormality. No pneumothorax. Heart: Mildly enlarged cardiomediastinal silhouette. Mediastinum: See above. Bones/joints: No acute osseous abnormality. IMPRESSION: Mild pulmonary vascular congestion.
[2019-10-31 17:54] VITALS: BP 120/85
--- NOTE | 2019-10-31 18:11 | Emergency Room Report ---
History of Present Illness General Chief Complaint: Edema Source: Patient Present Illness HPI 59-year-old female presents ED for evaluation. Brought in by EMS from [facility] facility. Per nursing staff patient noted to have increased swelling to her arms and legs for the last few days. More pronounced in the lower extremities. Patient denies chest pain or shortness of breath. Denies pain. Denies fevers or chills. No other aggravating relieving factors. Denies any other associated symptoms Allergies: Coded Allergies: CLINDAMYCIN (Verified Allergy, Unknown, 05/14/19) VANCOMYCIN (Verified Allergy, Unknown, 05/14/19) Patient History Past Medical History: HTN, CHF, dementia Past Surgical History: none Pertinent Family History: none Social History: Denies: smoking, alcohol use, drug use Now: No Immunizations: UTD Reviewed Nursing Documentation: PMH: Agreed; PSxH: Agreed Nursing Documentation-PMH Past Medical History: No History, Except For Hx Cardiac Problems: Yes Hx Hypertension: Yes - CHF Hx Diabetes: Yes Hx Cerebrovascular Accident: No Hx Transient Ischemic Attacks: No Hx Dementia: No Hx Alzheimer's Disease: No Hx Parkinson's Disease: Yes Hx Meningitis: No Hx Encephalitis: No Hx Seizures: No Hx Epilepsy: No Hx Multiple Sclerosis: No Hx Cerebral Palsy: No Hx Amyotrophic Lat Sclerosis: No Hx Guillian-Fulton Syndrome: No Hx Paralysis: No Hx Peripheral Neuropathy: No Hx Spinal Cord Injury: No Hx Head Trauma: No Hx Traumatic Brain Injury: No Hx Memory Loss: No Hx Concentration Difficulty: No Hx Speech Problem: No Hx Tremors: No Hx Vertigo: No Hx Dizziness: No Hx Headaches: Yes Hx Aphasia: No Hx Dysphasia: No Hx Numbness: No Hx Weakness: No Hx Fatigue: Yes Review of Systems All Other Systems: negative except mentioned in HPI Physical Exam Vital Signs Date Time Temp Pulse Resp B/P (MAP) Pulse Ox O2 Delivery O2 Flow Rate FiO2 10/31/19 16:58 97.9 60 18 122/64 (83) 95 Room Air Sp02 EP Interpretation: reviewed, normal General Appearance: no apparent distress, alert, GCS 15, non-toxic Head: normocephalic, atraumatic Eyes: bilateral eye normal inspection, bilateral eye PERRL ENT: hearing grossly normal, normal pharynx, no angioedema, normal voice Neck: full range of motion, supple/symm/no masses Respiratory: chest non-tender, lungs clear, normal breath sounds, speaking full sentences Cardiovascular #1: regular rate, rhythm, no edema Cardiovascular #2: 2+ carotid (R), 2+ carotid (L), 2+ radial (R), 2+ radial (L) , 2+ dorsalis pedis (R), 2+ dorsalis pedis (L) Gastrointestinal: normal bowel sounds, non tender, soft, non-distended, no guarding, no rebound Rectal: deferred Genitourinary: normal inspection, no CVA tenderness Musculoskeletal: back normal, gait/station normal, non-tender, swelling - 2+ pitting edema b/l UEs and LEs Neurologic: alert, motor strength/tone normal, oriented x3, sensory intact, responsive, speech normal Psychiatric: judgement/insight normal, memory normal, mood/affect normal, no suicidal/homicidal ideation Reflexes: 3+ bicep (R), 3+ bicep (L), 3+ tricep (R), 3+ tricep (L), 3+ knee (R) , 3+ knee (L) Skin: other - see nursing skin notes Lymphatic: no adenopathy Medical Decision Making Diagnostic Impression: Primary Impression: Renal failure Qualified Codes: N19 - Unspecified kidney failure Additional Impressions: Fluid overload Qualified Codes: E87.70 - Fluid overload, unspecified CHF (congestive heart failure) Qualified Codes: I50.9 - Heart failure, unspecified ER Course Hospital Course 59 yo F presents to ED with UE and LE swelling Differential diagnoses include: ID/unstable angina, CHF, renal failure Clinical course Patient placed on stretcher. on monitoring coordinator. After initial history and physical I ordered labs, EKG, chest x-ray labs reviewed- no leukocytosis, hemoglobin/hematocrit stable, BUN/creatinine elevated, troponins negative, BNP elevated EKG - NSR, no acute ischemic changes interpreted by me Chest x-ray- pulmonary congestion Lasix given. Case discussed with Dr. Matute and he agreed to accept the patient to his service for further care and support I. I feel this is a highly complex case requiring extensive working including EKG/Rhythm strip, Xray/CT/US, Blood/urine lab work, repeat exams while in ED, and administration of strong opiates/narcotics for pain control, admission to hospital or close patient follow up. Diagnosis - renal failure, fluid overload, CHF admitted to telemetry in serious condition Labs Test 10/31/19 18:19 White Blood Count 6.0 K/UL (4.8-10.8) Red Blood Count 2.98 M/UL (4.20-5.40) Hemoglobin 8.3 G/DL (12.0-16.0) Hematocrit 26.6 % (37.0-47.0) Mean Corpuscular Volume 89 FL (80-99) Mean Corpuscular Hemoglobin 27.8 PG (27.0-31.0) Mean Corpuscular Hemoglobin Concent 31.1 G/DL (32.0-36.0) Red Cell Distribution Width 15.3 % (11.6-14.8) Platelet Count 129 K/UL (150-450) Mean Platelet Volume 5.4 FL (6.5-10.1) Neutrophils (%) (Auto) 59.8 % (45.0-75.0) Lymphocytes (%) (Auto) 25.1 % (20.0-45.0) Monocytes (%) (Auto) 10.8 % (1.0-10.0) Eosinophils (%) (Auto) 3.3 % (0.0-3.0) Basophils (%) (Auto) 1.0 % (0.0-2.0) Prothrombin Time 12.8 SEC (9.30-11.50) Prothromb Time International Ratio 1.2 (0.9-1.1) Activated Partial Thromboplast Time 34 SEC (23-33) Sodium Level 138 MMOL/L (136-145) Potassium Level 5.0 MMOL/L (3.5-5.1) Chloride Level 108 MMOL/L (98-107) Carbon Dioxide Level 21 MMOL/L (21-32) Anion Gap 9 mmol/L (5-15) Blood Urea Nitrogen 45 mg/dL (7-18) Creatinine 2.0 MG/DL (0.55-1.30) Estimat Glomerular Filtration Rate 25.5 mL/min (>60) Glucose Level 126 MG/DL (74-106) Calcium Level 7.2 MG/DL (8.5-10.1) Total Bilirubin 0.3 MG/DL (0.2-1.0) Aspartate Amino Transf (AST/SGOT) 64 U/L (15-37) Alanine Aminotransferase (ALT/SGPT) 41 U/L (12-78) Alkaline Phosphatase 198 U/L (46-116) Troponin I 0.001 ng/mL (0.000-0.056) Pro-B-Type Natriuretic Peptide 6573 pg/mL (0-125) Total Protein 9.0 G/DL (6.4-8.2) Albumin 2.0 G/DL (3.4-5.0) Globulin 7.0 g/dL Albumin/Globulin Ratio 0.3 (1.0-2.7) EKG Diagnostic Results Rate: normal Rhythm: NSR ST Segments: no acute changes ASA given to the pt in ED: No Rhythm Strip Diag. Results EP Interpretation: yes Rhythm: NSR, no PVC's, no ectopy Chest X-Ray Diagnostic Results Chest X-Ray Diagnostic Results : Chest X-Ray Ordered: Yes # of Views/Limited/Complete: 1 View Indication: Other EP Interpretation: Yes Interpretation: no consolidation, no pneumothorax, other - cardiomegaly Impression: Other - CHF Electronically Signed by: Electronically signed by eKnyon Huerta MD Last Vital Signs Date Time Temp Pulse Resp B/P (MAP) Pulse Ox O2 Delivery O2 Flow Rate FiO2 10/31/19 17:54 98.4 18 120/85 99 Room Air 10/31/19 17:54 70 Status: improved Disposition: ADMITTED INPATIENT Condition: Serious Kenyon Huerta MD Oct 31, 2019 18:11
[2019-10-31 18:26] LABS: EOSINOPHILS % (AUTO) 3.3 % (0.0-3.0); HEMATOCRIT 26.6 % (37.0-47.0); HEMOGLOBIN 8.3 G/DL (12.0-16.0); LYMPHOCYTES % (AUTO) 25.1 % (20.0-45.0); MEAN CORPUSCULAR VOLUME 89 FL (80-99); MONOCYTES % (AUTO) 10.8 % (1.0-10.0); NEUTROPHILS % (AUTO) 59.8 % (45.0-75.0); PLATELET COUNT 129 K/UL (150-450); RED BLOOD COUNT 2.98 M/UL (4.20-5.40); RED CELL DISTRIBUTION WIDTH 15.3 % (11.6-14.8)
[2019-10-31 18:35] LABS: INR 1.2 (0.9-1.1)
[2019-10-31 18:37] LABS: ANION GAP 9 mmol/L (5-15); BLOOD UREA NITROGEN 45 mg/dL (7-18); CALCIUM 7.2 MG/DL (8.5-10.1); CARBON DIOXIDE 21 MMOL/L (21-32); CHLORIDE 108 MMOL/L (98-107); SODIUM 138 MMOL/L (136-145)
[2019-10-31] MEDS ORDERED: AMLODIPINE BESY10 MG ORAL (18:48)
[2019-10-31] MEDS ORDERED: RENAL VITAMIN0.8 MG PO (18:48)
[2019-10-31] MEDS ORDERED: NEPHROVITE1 TAB ORAL (18:48)
[2019-10-31] MEDS ORDERED: FLUDROCORTISON0.1 MG PO (18:48)
[2019-10-31] MEDS ORDERED: CALCIUM500 M3 PO (18:48)
[2019-10-31] MEDS ORDERED: CATAPRES0.1 MG ORAL (18:48)
[2019-10-31] MEDS ORDERED: COLACE100 MG ORAL (18:48)
[2019-10-31] MEDS ORDERED: ASCORBIC ACID500 MG ORAL (18:48)
[2019-10-31] MEDS ORDERED: ALBUTEROL2.5 MG/3 M INH (18:48)
[2019-10-31 18:50] LABS: ALANINE AMINOTRANSFERASE 41 U/L (12-78); ALBUMIN/GLOBULIN RATIO 0.3 (1.0-2.7); ALKALINE PHOSPHATASE 198 U/L (46-116); ASPARTATE AMINO TRANSFERASE 64 U/L (15-37); BILIRUBIN,TOTAL 0.3 MG/DL (0.2-1.0)
--- NOTE | 2019-10-31 18:50 | NUR ---
Several attempts to get in touch with primary care physician- Darius with no success- spoke with (covering to [facility])-admit to [facility], with place admiting orders in.
--- NOTE | 2019-10-31 19:10 | NUR ---
ED Nurse Note: Report given to Kun SCHROEDER. Pics and urine sample and report and transer endorsed to Kun schroeder.
--- NOTE | 2019-10-31 19:15 | NUR ---
ED Nurse Note: Received report from Ce SCHROEDER. VSS, NAD, family at bedside. Will continue to monitor patient.
--- NOTE | 2019-10-31 19:20 | NUR ---
ED Nurse Note: Belongings list done, swabs done for MRSA, VRE, CRE.
--- NOTE | 2019-10-31 19:30 | NUR ---
ED Nurse Note: Integumentary assessment: wound assessment done. Upon examination, pressure wound noted on the left heel. Photo taken and uploaded. No other wounds noted.
--- NOTE | 2019-10-31 19:39 | NUR ---
ED Nurse Note: Attempted to give report to tennis camp instructor for bed 219-2 but was unsucessful because the RN was getting report. Asked to give report in 20 minutes.
--- NOTE | 2019-10-31 19:45 | NUR ---
ED Nurse Note: Report given to Aileen SCHROEDER on Tele for room 219-2. Addendum: 10/31/19 at 1957 by [email or web address] ED Nurse Note: Report given to Aileen SCHROEDER on Tele for room 219-2. Per Aileen, patient can be brought up at 2013.
--- NOTE | 2019-10-31 20:19 | NUR ---
NURSE NOTES: Received report via phone from ELDA Carty. Awaiting pt arrival.
--- NOTE | 2019-10-31 20:20 | NUR ---
TRANSFER TO FLOOR: Patient transferred to Telemetry 219-2 as ordered, per Dr. Matute accompanied by 1 RN and 1 Tech. Report given to Aileen SCHROEDER. Belongings sent up with patient. Family is notified. Pt ALVARO BARBOUR.
--- NOTE | 2019-10-31 20:30 | NUR ---
NURSE NOTES: Received pt on floor. Bed in lowest position. Call light within reach. Stage 4 PI noted on Left heel and surgical wound noted on left hip (pt states she had hip removal with no replacement). Pt awake, alert, and talkative. Daughter at bedside. BLE severely swollen. Pt in 10/[address] Khan called and gave admission orders. Will input and will continue to monitor.
[2019-10-31 21:00] VITALS: BP_SYST 128; BP_SYST 63; BP_DIAS 63
--- NOTE | 2019-10-31 21:00 | History & Physical ---
History and Physical History & Physicial History and Physical HPI Patient is a 59-year-old female admitted from [facility] facility. Per nursing staff patient noted to have increased swelling to her arms and legs for the last few days. More pronounced in the lower extremities. Patient denies chest pain or shortness of breath. Denies pain. Denies fevers or chills. No other aggravating relieving factors. Denies any other associated symptoms Allergies: CLINDAMYCIN VANCOMYCIN Past Medical History: Hypertension, Congestive Heart Disease, Chronic Kidney Disease, Dementia, Diabetes, Parkinsons Disease Social History: Denies: smoking, alcohol use, drug use All Other Systems: negative except mentioned in HPI Physical Exam Vital Signs Noted Date Time Temp Pulse Resp B/P (MAP) Pulse Ox O2 Delivery O2 Flow Rate FiO2 10/31/19 16:58 97.9 60 18 122/64 (83) 95 Room Air General Appearance: no apparent distress, alert, GCS 15, non-toxic Head: normocephalic, atraumatic Eyes: bilateral eye normal inspection, bilateral eye PERRL ENT: hearing grossly normal, normal pharynx, no angioedema, normal voice Neck: full range of motion, supple/symm/no masses/no LN Respiratory: chest non-tender, lungs clear, normal breath sounds Cardiovascular: regular rate, rhythm, HS1, HS2 normal Gastrointestinal: normal bowel sounds, non tender, soft, non-distended, no guarding, no rebound Musculoskeletal: back normal, gait/station normal, non-tender, swelling - 2+ pitting edema b/l UEs and LEs Neurologic: alert, motor strength/tone normal, oriented x3, sensory intact, responsive, speech normal Impression: Chronic Renal failure Fluid overload Congestive heart failure Hypertension Diabetes Dementia Parkinsons Disease Plan: Diurese PRN INCLUSION INTERN Medications Echo Renal US Cardiology and REnal Consultations Monitor labs PPX Labs Test 10/31/19 18:19 White Blood Count 6.0 K/UL (4.8-10.8) Red Blood Count 2.98 M/UL (4.20-5.40) Hemoglobin 8.3 G/DL (12.0-16.0) Hematocrit 26.6 % (37.0-47.0) Mean Corpuscular Volume 89 FL (80-99) Mean Corpuscular Hemoglobin 27.8 PG (27.0-31.0) Mean Corpuscular Hemoglobin Concent 31.1 G/DL (32.0-36.0) Red Cell Distribution Width 15.3 % (11.6-14.8) Platelet Count 129 K/UL (150-450) Mean Platelet Volume 5.4 FL (6.5-10.1) Neutrophils (%) (Auto) 59.8 % (45.0-75.0) Lymphocytes (%) (Auto) 25.1 % (20.0-45.0) Monocytes (%) (Auto) 10.8 % (1.0-10.0) Eosinophils (%) (Auto) 3.3 % (0.0-3.0) Basophils (%) (Auto) 1.0 % (0.0-2.0) Prothrombin Time 12.8 SEC (9.30-11.50) Prothromb Time International Ratio 1.2 (0.9-1.1) Activated Partial Thromboplast Time 34 SEC (23-33) Sodium Level 138 MMOL/L (136-145) Potassium Level 5.0 MMOL/L (3.5-5.1) Chloride Level 108 MMOL/L (98-107) Carbon Dioxide Level 21 MMOL/L (21-32) Anion Gap 9 mmol/L (5-15) Blood Urea Nitrogen 45 mg/dL (7-18) Creatinine 2.0 MG/DL (0.55-1.30) Estimat Glomerular Filtration Rate 25.5 mL/min (>60) Glucose Level 126 MG/DL (74-106) Calcium Level 7.2 MG/DL (8.5-10.1) Total Bilirubin 0.3 MG/DL (0.2-1.0) Aspartate Amino Transf (AST/SGOT) 64 U/L (15-37) Alanine Aminotransferase (ALT/SGPT) 41 U/L (12-78) Alkaline Phosphatase 198 U/L (46-116) Troponin I 0.001 ng/mL (0.000-0.056) Pro-B-Type Natriuretic Peptide 6573 pg/mL (0-125) Total Protein 9.0 G/DL (6.4-8.2) Albumin 2.0 G/DL (3.4-5.0) Globulin 7.0 g/dL Albumin/Globulin Ratio 0.3 (1.0-2.7) EKG: Rate: normal Rhythm: NSR ST Segments: no acute changes Chest X-Ray: no consolidation, no pneumothorax, other - cardiomegaly, CHF Junior Khan MD Oct 31, 2019 21:00
[2019-11-01] VITALS: BP_SYST 111; BP_SYST 57; BP_DIAS 73
[2019-11-01] MEDS ORDERED: HydrALAZINE 25mg tab ORAL PRN (00:15)
--- NOTE | 2019-11-01 00:27 | NUR ---
NURSE NOTES: Pt requested to be full code despite POLST. Will continue to monitor.
[2019-11-01 01:14] LABS: APPEARANCE,URINE CLEAR; BILIRUBIN, URINE NEGATIVE (NEGATIVE); COLOR,URINE PALE YELLOW; GLUCOSE, URINE (UA) NEGATIVE (NEGATIVE); KETONES,URINE NEGATIVE (NEGATIVE); LEUKOCYTE ESTERASE ,URINE NEGATIVE (NEGATIVE); NITRITE,URINE NEGATIVE (NEGATIVE); PH,URINE 5 (4.5-8.0); PROTEIN,URINE 2+ (NEGATIVE); UROBILINOGEN,URINE NORMAL MG/DL (0.0-1.0)
[2019-11-01 04:00] VITALS: BP 121/65
[2019-11-01] MEDS: NovoLOG Insulin Flexpen SUBQ SCH ×4 (05:40→21:25)
[2019-11-01] MEDS: Levothyroxine 125mcg tab ORAL SCH (07:01)
[2019-11-01 07:45] LABS: BASOPHILS % (AUTO) 0.6 % (0.0-2.0); HEMATOCRIT 25.6 % (37.0-47.0); LYMPHOCYTES % (AUTO) 32.2 % (20.0-45.0); MEAN CORPUSCULAR VOLUME 90 FL (80-99); MONOCYTES % (AUTO) 10.4 % (1.0-10.0); NEUTROPHILS % (AUTO) 51.9 % (45.0-75.0); PLATELET COUNT 120 K/UL (150-450); RED BLOOD COUNT 2.85 M/UL (4.20-5.40); WHITE BLOOD COUNT 4.4 K/UL (4.8-10.8)
--- NOTE | 2019-11-01 07:48 | NUR ---
HAND-OFF: Report given to Dan. Lexa maynard.
[2019-11-01 08:00] VITALS: BP 122/61
[2019-11-01 08:13] LABS: ANION GAP 7 mmol/L (5-15); BLOOD UREA NITROGEN 43 mg/dL (7-18); CARBON DIOXIDE 21 MMOL/L (21-32); CHLORIDE 108 MMOL/L (98-107); POTASSIUM 4.5 MMOL/L (3.5-5.1); SODIUM 136 MMOL/L (136-145)
[2019-11-01] MEDS: DULoxetine 30mg cap ORAL SCH (09:00)
[2019-11-01] MEDS: Ascorbic Acid 500mg tab ORAL SCH (09:00)
[2019-11-01] MEDS: Heparin 5000 units/ml inj SUBQ SCH ×2 (09:00→21:00)
[2019-11-01] MEDS: Docusate 100mg cap ORAL SCH ×2 (09:00→18:00)
[2019-11-01] MEDS: Losartan 50mg tab ORAL SCH (10:20)
[2019-11-01 12:00] VITALS: BP 107/60
--- NOTE | 2019-11-01 12:35 | NUR ---
CARDIOLOGY: ALEXSANDER PEREZ ROOM : [facility] [id number] Temporary 2-D ECHO REPORT Normal left ventricular chamber size, systolic function and wall motion. Left ventricular ejection fraction estimated to be 60-65 %. No evidence of left ventricular hypertrophy . No evidence of pericardial effusion. All other cardiac chamber sizes are within normal limits. Focal aortic valve sclerosis with adequate cusp excursion. Thickened mitral valve leaflets with normal excursion. Mitral annulus and aortic root calcification. Pulmonic valve not well visualized. Normal tricuspid valve structure. IVC dilated at 2.9 cm without physiologic collapse suggestive of increased RA pressure. A color flow and spectral Doppler study was performed and revealed: Trace aortic insufficiency. Mild to moderate mitral regurgitation. Mitral inflow indicates normal left ventricular diastolic function. Mild tricuspid regurgitation. Tricuspid systolic velocities suggests peak right ventricular systolic pressure of 47mmHg,consistent with mild pulmonary hypertension.
--- NOTE | 2019-11-01 15:57 | Diagnostic Imaging Report ---
EXAM: US Retroperitoneal Complete, Renal CLINICAL HISTORY: ABN LABS TECHNIQUE: Real-time ultrasound of the retroperitoneum (complete) with image documentation. COMPARISON: Renal ultrasound dated 05/15/19 FINDINGS: Limitations: Exam degraded by large body habitus. Kidneys: Right kidney length of 9.1 cm. Left kidney length of 7.4 cm. Echogenic and atrophic left kidney. No hydronephrosis. Urinary bladder: Unremarkable without wall thickening or luminal stones or debris. Urinary bladder volume of 142 cc. IMPRESSION: Mild left renal atrophy. No hydronephrosis.
[2019-11-01 16:00] VITALS: BP 118/52
--- NOTE | 2019-11-01 16:40 | Pulmonology Progress Note ---
Assessment/Plan Assessment/Plan Pulmonary Progress Note HPI Patient is a 59-year-old female admitted from long term facility. Per nursing staff patient noted to have increased swelling to her arms and legs for the last few days. More pronounced in the lower extremities. Patient denies chest pain or shortness of breath. Denies pain. Denies fevers or chills. No other aggravating relieving factors. Denies any other associated symptoms Allergies: CLINDAMYCIN VANCOMYCIN Past Medical History: Hypertension, Congestive Heart Disease, Chronic Kidney Disease, Dementia, Diabetes, Parkinsons Disease Social History: Denies: smoking, alcohol use, drug use All Other Systems: negative except mentioned in HPI Physical Exam Vital Signs Noted General Appearance: no apparent distress, alert, GCS 15, non-toxic Head: normocephalic, atraumatic Eyes: bilateral eye normal inspection, bilateral eye PERRL ENT: hearing grossly normal, normal pharynx, no angioedema, normal voice Neck: full range of motion, supple/symm/no masses/no LN Respiratory: chest non-tender, lungs clear, normal breath sounds Cardiovascular: regular rate, rhythm, HS1, HS2 normal Gastrointestinal: normal bowel sounds, non tender, soft, non-distended, no guarding, no rebound Musculoskeletal: back normal, gait/station normal, non-tender, swelling - 2+ pitting edema b/l UEs and LEs Neurologic: alert, motor strength/tone normal, oriented x3, sensory intact, responsive, speech normal Impression: Chronic Renal failure Fluid overload Congestive heart failure Hypertension Diabetes Dementia Parkinsons Disease 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 Echo Renal US Cardiology and REnal Consultations Monitor labs PPX Labs Test 10/31/19 18:19 White Blood Count 6.0 K/UL (4.8-10.8) Red Blood Count 2.98 M/UL (4.20-5.40) Hemoglobin 8.3 G/DL (12.0-16.0) Hematocrit 26.6 % (37.0-47.0) Mean Corpuscular Volume 89 FL (80-99) Mean Corpuscular Hemoglobin 27.8 PG (27.0-31.0) Mean Corpuscular Hemoglobin Concent 31.1 G/DL (32.0-36.0) Red Cell Distribution Width 15.3 % (11.6-14.8) Platelet Count 129 K/UL (150-450) Mean Platelet Volume 5.4 FL (6.5-10.1) Neutrophils (%) (Auto) 59.8 % (45.0-75.0) Lymphocytes (%) (Auto) 25.1 % (20.0-45.0) Monocytes (%) (Auto) 10.8 % (1.0-10.0) Eosinophils (%) (Auto) 3.3 % (0.0-3.0) Basophils (%) (Auto) 1.0 % (0.0-2.0) Prothrombin Time 12.8 SEC (9.30-11.50) Prothromb Time International Ratio 1.2 (0.9-1.1) Activated Partial Thromboplast Time 34 SEC (23-33) Sodium Level 138 MMOL/L (136-145) Potassium Level 5.0 MMOL/L (3.5-5.1) Chloride Level 108 MMOL/L (98-107) Carbon Dioxide Level 21 MMOL/L (21-32) Anion Gap 9 mmol/L (5-15) Blood Urea Nitrogen 45 mg/dL (7-18) Creatinine 2.0 MG/DL (0.55-1.30) Estimat Glomerular Filtration Rate 25.5 mL/min (>60) Glucose Level 126 MG/DL (74-106) Calcium Level 7.2 MG/DL (8.5-10.1) Total Bilirubin 0.3 MG/DL (0.2-1.0) Aspartate Amino Transf (AST/SGOT) 64 U/L (15-37) Alanine Aminotransferase (ALT/SGPT) 41 U/L (12-78) Alkaline Phosphatase 198 U/L (46-116) Troponin I 0.001 ng/mL (0.000-0.056) Pro-B-Type Natriuretic Peptide 6573 pg/mL (0-125) Total Protein 9.0 G/DL (6.4-8.2) Albumin 2.0 G/DL (3.4-5.0) Globulin 7.0 g/dL Albumin/Globulin Ratio 0.3 (1.0-2.7) EKG: Rate: normal Rhythm: NSR ST Segments: no acute changes Chest X-Ray: no consolidation, no pneumothorax, other - cardiomegaly, CHF Subjective ROS Limited/Unobtainable: No Allergies: Coded Allergies: CLINDAMYCIN (Verified Allergy, Unknown, 05/14/19) VANCOMYCIN (Verified Allergy, Unknown, 05/14/19) Objective Last 24 Hour Vital Signs Date Time Temp Pulse Resp B/P (MAP) Pulse Ox O2 Delivery O2 Flow Rate FiO2 11/01/19 10:20 121/65 11/01/19 10:19 58 121/65 11/01/19 10:17 58 121/65 11/01/19 09:00 Room Air 11/01/19 04:00 58 11/01/19 04:00 97.2 59 18 121/65 (83) 97 11/01/19 00:00 97.5 57 18 111/73 (86) 97 11/01/19 00:00 60 10/31/19 23:35 Room Air 10/31/19 21:00 97.7 63 18 128/63 (84) 96 10/31/19 20:20 98.4 68 18 122/88 99 Room Air 10/31/19 17:54 98.4 18 120/85 99 Room Air 10/31/19 17:54 70 18 10/31/19 16:58 97.9 60 18 122/64 (83) 95 Room Air Intake and Output 10/31/19 11/01/19 19:00 07:00 Intake Total 0 ml 120 ml Output Total 600 ml Balance 0 ml -480 ml Intake Oral 0 ml Other 120 ml Output Urine Total 600 ml # Bowel Movements 1 Microbiology Date/Time Source Procedure Growth Status 10/31/19 19:10 Rectum Received Laboratory Tests 10/31/19 18:19: White Blood Count 6.0, Red Blood Count 2.98L, Hemoglobin 8.3L, Hematocrit 26.6L , Mean Corpuscular Volume 89, Mean Corpuscular Hemoglobin 27.8, Mean Corpuscular Hemoglobin Concent 31.1L, Red Cell Distribution Width 15.3H, Platelet Count 129L, Mean Platelet Volume 5.4L, Neutrophils (%) (Auto) 59.8, Lymphocytes (%) (Auto) 25.1, Monocytes (%) (Auto) 10.8H, Eosinophils (%) (Auto) 3.3H, Basophils (%) (Auto) 1.0, Prothrombin Time 12.8H, Prothromb Time International Ratio 1.2H, Activated Partial Thromboplast Time 34H, Sodium Level 138, Potassium Level 5.0, Chloride Level 108H, Carbon Dioxide Level 21, Anion Gap 9, Blood Urea Nitrogen 45H, Creatinine 2.0H, Estimat Glomerular Filtration Rate 25.5, Glucose Level 126H, Calcium Level 7.2L, Total Bilirubin 0.3, Aspartate Amino Transf (AST/SGOT) 64H, Alanine Aminotransferase (ALT/SGPT) 41, Alkaline Phosphatase 198H, Troponin I 0.001, Pro-B-Type Natriuretic Peptide 6573H, Total Protein 9.0H, Albumin 2.0L, Globulin 7.0, Albumin/Globulin Ratio 0.3L 11/01/19 00:40: Urine Color Pale yellow, Urine Appearance Clear, Urine pH 5, Urine Specific [place] 1.015, Urine Protein 2+H, Urine Glucose (UA) Negative, Urine Ketones Negative, Urine Blood 1+H, Urine Nitrite Negative, Urine Bilirubin Negative, Urine Urobilinogen Normal, Urine Leukocyte Esterase Negative, Urine RBC 2-4H, Urine WBC 0-2, Urine Squamous Epithelial Cells Few, Urine Bacteria Occasional 11/01/19 05:20: White Blood Count 4.4L, Red Blood Count 2.85L, Hemoglobin 8.0L, Hematocrit 25.6L , Mean Corpuscular Volume 90, Mean Corpuscular Hemoglobin 28.1, Mean Corpuscular Hemoglobin Concent 31.3L, Red Cell Distribution Width 15.0H, Platelet Count 120L, Mean Platelet Volume 5.4L, Neutrophils (%) (Auto) 51.9, Lymphocytes (%) (Auto) 32.2, Monocytes (%) (Auto) 10.4H, Eosinophils (%) (Auto) 5.0H, Basophils (%) (Auto) 0.6, Sodium Level 136, Potassium Level 4.5, Chloride Level 108H, Carbon Dioxide Level 21, Anion Gap 7, Blood Urea Nitrogen 43H, Creatinine 2.0H, Estimat Glomerular Filtration Rate 25.5, Glucose Level 104, Calcium Level 7.0L, Hemoglobin A1c 6.9H, Thyroid Stimulating Hormone (TSH) 7.258H Current Medications Medications (Trade) Dose Ordered Sig/Miguelina Route PRN Reason Start Time Stop Time Status Last Admin Dose Admin Acetaminophen (Tylenol) 325 mg Q4H PRN ORAL For Pain 11/01/19 00:45 12/01/19 00:44 Amlodipine Besylate (Norvasc) 10 mg DAILY ORAL 11/01/19 09:00 12/01/19 08:59 11/01/19 10:17 Ascorbic Acid (Vitamin C) 500 mg DAILY ORAL 11/01/19 09:00 12/01/19 08:59 Clonidine HCl (Catapres Tab) 0.1 mg Q6H PRN ORAL for sbp>160 11/01/19 00:15 12/01/19 00:14 Dextrose (Dextrose 50%) 25 ml Q30M PRN IV Hypoglycemia 11/01/19 00:15 12/01/19 00:14 Dextrose (Dextrose 50%) 50 ml Q30M PRN IV Hypoglycemia 11/01/19 00:15 12/01/19 00:14 Docusate Sodium (Colace) 100 mg TWICE A DAY ORAL 11/01/19 09:00 12/01/19 08:59 Duloxetine HCl (Cymbalta) 30 mg DAILY ORAL 11/01/19 09:00 12/01/19 08:59 Ferrous Sulfate (Feosol) 325 mg DAILY ORAL 11/01/19 09:00 12/01/19 08:59 Furosemide (Lasix) 40 mg EVERY 12 HOURS IV 11/01/19 09:00 12/01/19 08:59 11/01/19 10:17 Heparin Sodium (Porcine) (Heparin 5000 units/ml) 5,000 units EVERY 12 HOURS SUBQ 11/01/19 09:00 12/01/19 08:59 Hydralazine HCl (Apresoline) 25 mg Q6H PRN ORAL for sbp>180 11/01/19 00:15 12/01/19 00:14 Insulin Aspart (NovoLOG) BEFORE MEALS AND HS SUBQ 11/01/19 06:30 12/01/19 06:29 Levothyroxine Sodium (Synthroid) 125 mcg ACBREAKFAST ORAL 11/01/19 06:30 12/01/19 06:29 11/01/19 07:01 Losartan Potassium (Cozaar) 50 mg DAILY ORAL 11/01/19 09:00 12/01/19 08:59 11/01/19 10:20 Methadone HCl (Methadone HCl) 50 mg DAILY ORAL 11/01/19 09:00 11/08/19 08:59 11/01/19 10:16 Metoprolol Tartrate (Lopressor) 25 mg EVERY 12 HOURS ORAL 11/01/19 09:00 12/01/19 08:59 11/01/19 10:19 Junior Khan MD Nov 01, 2019 16:40
--- NOTE | 2019-11-01 19:43 | NUR ---
NURSE NOTES: Received pt from ELDA Duque. Pt awake, alert, and talkative. Bed in lowest position. Call light within reach. Will continue to monitor.
[2019-11-01 20:00] VITALS: BP 109/73
[2019-11-02] VITALS: BP 115/53
[2019-11-02 04:00] VITALS: BP 117/62
[2019-11-02] MEDS: NovoLOG Insulin Flexpen SUBQ SCH ×4 (06:30→21:38)
[2019-11-02] MEDS: Levothyroxine 125mcg tab ORAL SCH (06:30)
--- NOTE | 2019-11-02 07:29 | NUR ---
HAND-OFF: Report given to ELDA Adame. Pt stable.
--- NOTE | 2019-11-02 07:40 | NUR ---
NURSE NOTES: Received report from ELDA Gallagher. Patient in bed resting, no active s/s cardiac, respiratory distress noticed at this time. Patient AOX4, on room air, SB with HR 58.. IV on right Shoulder 22G, asymptomatic, patent, intact. Bed in lowest position, side rails upx3, call light within reach, bed alarm on. Will continue to monitor.
[2019-11-02 08:00] VITALS: BP 108/54
[2019-11-02] MEDS: Losartan 50mg tab ORAL SCH (09:00)
[2019-11-02] MEDS: DULoxetine 30mg cap ORAL SCH (09:00)
[2019-11-02] MEDS: Ascorbic Acid 500mg tab ORAL SCH (09:00)
[2019-11-02] MEDS: Docusate 100mg cap ORAL SCH ×2 (09:00→17:34)
[2019-11-02] MEDS: Heparin 5000 units/ml inj SUBQ SCH ×2 (09:00→21:00)
--- NOTE | 2019-11-02 09:00 | NUR ---
NURSE NOTES: Patient AOx4, patient refused to take medication, risk and disadvantages explained.
--- NOTE | 2019-11-02 09:57 | NUR ---
RD ASSESSMENT & RECOMMENDATIONS SEE CARE ACTIVITY FOR COMPLETE ASSESSMENT DAILY ESTIMATED NEEDS: Needs based on Wounds, 56.3kg adj 30-35 kcals/kg 9650-0693 total kcals 1.25-1.5 g protein/kg 70-84 g total protein Fluid per MD, on lasix NUTRITION DIAGNOSIS: 1) Increased kcal and pro needs r/t wound healing as evidenced by open heel wound, eval pending. CURRENT DIET:[facility] MED/ renal/ soft/ cardiac PO DIET RECOMMENDATIONS: [facility] MED / LOW NA diet ADDITIONAL RECOMMENDATIONS: 1) Monitor lytes, need for renal diet restriction 2) F/up w/ COP EXAMINER eval 3) Wound care: Add BECKY BID F/up w/ WC eval 4) Obtain a calibrated bed scale wt EMR wt: 165# vs Bed wt: 234#
--- NOTE | 2019-11-02 11:00 | NUR ---
NURSE NOTES: Patient stated patient got hip surgery done about 3 years ago. 6cm x 15 cm x 6 cm, no drainage. Wound cleansed with NS and pat dry. Dry dressing applied, covered with Optifoam.
[2019-11-02 12:00] VITALS: BP 116/58
--- NOTE | 2019-11-02 14:10 | NUR ---
NURSE NOTES: Dr. Khan made aware patient has Stage III-IV wound on left heel, per , Dr. Galicia as consult. Order noted, entered, carried out.
[2019-11-02 16:00] VITALS: BP 115/58
--- NOTE | 2019-11-02 17:38 | Pulmonology Progress Note ---
Assessment/Plan Assessment/Plan Pulmonary Progress Note HPI Patient is a 59-year-old female admitted from nursing home facility. Per nursing staff patient noted to have increased swelling to her arms and legs for the last few days. More pronounced in the lower extremities. Patient denies chest pain or shortness of breath. Denies pain. Denies fevers or chills. No other aggravating relieving factors. Denies any other associated symptoms Allergies: CLINDAMYCIN VANCOMYCIN Past Medical History: Hypertension, Congestive Heart Disease, Chronic Kidney Disease, Dementia, Diabetes, Parkinsons Disease Social History: Denies: smoking, alcohol use, drug use All Other Systems: negative except mentioned in HPI Physical Exam Vital Signs Noted General Appearance: no apparent distress, alert, GCS 15, non-toxic Head: normocephalic, atraumatic Eyes: bilateral eye normal inspection, bilateral eye PERRL ENT: hearing grossly normal, normal pharynx, no angioedema, normal voice Neck: full range of motion, supple/symm/no masses/no LN Respiratory: chest non-tender, lungs clear, normal breath sounds Cardiovascular: regular rate, rhythm, HS1, HS2 normal Gastrointestinal: normal bowel sounds, non tender, soft, non-distended, no guarding, no rebound Musculoskeletal: back normal, gait/station normal, non-tender, swelling - 2+ pitting edema b/l UEs and LEs Neurologic: alert, motor strength/tone normal, oriented x3, sensory intact, responsive, speech normal Impression: Chronic Renal failure Fluid overload Congestive heart failure Hypertension Diabetes Dementia Parkinsons Disease 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 Echo Renal US Cardiology and Rnnal Consultations Monitor labs PPX Labs Test 10/31/19 18:19 White Blood Count 6.0 K/UL (4.8-10.8) Red Blood Count 2.98 M/UL (4.20-5.40) Hemoglobin 8.3 G/DL (12.0-16.0) Hematocrit 26.6 % (37.0-47.0) Mean Corpuscular Volume 89 FL (80-99) Mean Corpuscular Hemoglobin 27.8 PG (27.0-31.0) Mean Corpuscular Hemoglobin Concent 31.1 G/DL (32.0-36.0) Red Cell Distribution Width 15.3 % (11.6-14.8) Platelet Count 129 K/UL (150-450) Mean Platelet Volume 5.4 FL (6.5-10.1) Neutrophils (%) (Auto) 59.8 % (45.0-75.0) Lymphocytes (%) (Auto) 25.1 % (20.0-45.0) Monocytes (%) (Auto) 10.8 % (1.0-10.0) Eosinophils (%) (Auto) 3.3 % (0.0-3.0) Basophils (%) (Auto) 1.0 % (0.0-2.0) Prothrombin Time 12.8 SEC (9.30-11.50) Prothromb Time International Ratio 1.2 (0.9-1.1) Activated Partial Thromboplast Time 34 SEC (23-33) Sodium Level 138 MMOL/L (136-145) Potassium Level 5.0 MMOL/L (3.5-5.1) Chloride Level 108 MMOL/L (98-107) Carbon Dioxide Level 21 MMOL/L (21-32) Anion Gap 9 mmol/L (5-15) Blood Urea Nitrogen 45 mg/dL (7-18) Creatinine 2.0 MG/DL (0.55-1.30) Estimat Glomerular Filtration Rate 25.5 mL/min (>60) Glucose Level 126 MG/DL (74-106) Calcium Level 7.2 MG/DL (8.5-10.1) Total Bilirubin 0.3 MG/DL (0.2-1.0) Aspartate Amino Transf (AST/SGOT) 64 U/L (15-37) Alanine Aminotransferase (ALT/SGPT) 41 U/L (12-78) Alkaline Phosphatase 198 U/L (46-116) Troponin I 0.001 ng/mL (0.000-0.056) Pro-B-Type Natriuretic Peptide 6573 pg/mL (0-125) Total Protein 9.0 G/DL (6.4-8.2) Albumin 2.0 G/DL (3.4-5.0) Globulin 7.0 g/dL Albumin/Globulin Ratio 0.3 (1.0-2.7) EKG: Rate: normal Rhythm: NSR ST Segments: no acute changes Chest X-Ray: no consolidation, no pneumothorax, other - cardiomegaly, CHF Subjective ROS Limited/Unobtainable: No Allergies: Coded Allergies: CLINDAMYCIN (Verified Allergy, Unknown, 05/14/19) VANCOMYCIN (Verified Allergy, Unknown, 05/14/19) Objective Last 24 Hour Vital Signs Date Time Temp Pulse Resp B/P (MAP) Pulse Ox O2 Delivery O2 Flow Rate FiO2 11/02/19 16:00 97.9 59 20 115/58 (77) 97 11/02/19 16:00 58 11/02/19 12:00 64 11/02/19 12:00 97.9 59 20 116/58 (77) 98 11/02/19 09:00 Room Air 11/02/19 09:00 58 108/54 11/02/19 09:00 108/54 11/02/19 09:00 58 108/54 11/02/19 08:00 56 11/02/19 08:00 98.0 58 20 108/54 (72) 98 11/02/19 04:00 97.9 60 19 117/62 (80) 96 11/02/19 04:00 58 11/02/19 00:00 97.3 59 18 115/53 (73) 96 11/02/19 00:00 58 11/01/19 21:00 Room Air 11/01/19 20:00 54 11/01/19 20:00 97.9 55 18 109/73 (85) 97 Intake and Output 11/01/19 11/02/19 19:00 07:00 # Voids 1 2 Microbiology Date/Time Source Procedure Growth Status 10/31/19 19:10 Rectum Received Current Medications Medications (Trade) Dose Ordered Sig/Miguelina Route PRN Reason Start Time Stop Time Status Last Admin Dose Admin Acetaminophen (Tylenol) 325 mg Q4H PRN ORAL For Pain 11/01/19 00:45 12/01/19 00:44 Amlodipine Besylate (Norvasc) 10 mg DAILY ORAL 11/01/19 09:00 12/01/19 08:59 11/01/19 10:17 Ascorbic Acid (Vitamin C) 500 mg DAILY ORAL 11/01/19 09:00 12/01/19 08:59 Clonidine HCl (Catapres Tab) 0.1 mg Q6H PRN ORAL for sbp>160 11/01/19 00:15 12/01/19 00:14 Dextrose (Dextrose 50%) 25 ml Q30M PRN IV Hypoglycemia 11/01/19 00:15 12/01/19 00:14 Dextrose (Dextrose 50%) 50 ml Q30M PRN IV Hypoglycemia 11/01/19 00:15 12/01/19 00:14 Docusate Sodium (Colace) 100 mg TWICE A DAY ORAL 11/01/19 09:00 12/01/19 08:59 Duloxetine HCl (Cymbalta) 30 mg DAILY ORAL 11/01/19 09:00 12/01/19 08:59 Ferrous Sulfate (Feosol) 325 mg DAILY ORAL 11/01/19 09:00 12/01/19 08:59 Furosemide (Lasix) 40 mg EVERY 12 HOURS IV 11/01/19 09:00 12/01/19 08:59 11/02/19 08:59 Heparin Sodium (Porcine) (Heparin 5000 units/ml) 5,000 units EVERY 12 HOURS SUBQ 11/01/19 09:00 12/01/19 08:59 Hydralazine HCl (Apresoline) 25 mg Q6H PRN ORAL for sbp>180 11/01/19 00:15 12/01/19 00:14 Insulin Aspart (NovoLOG) BEFORE MEALS AND HS SUBQ 11/01/19 06:30 12/01/19 06:29 11/01/19 21:25 Levothyroxine Sodium (Synthroid) 125 mcg ACBREAKFAST ORAL 11/01/19 06:30 12/01/19 06:29 11/01/19 07:01 Losartan Potassium (Cozaar) 50 mg DAILY ORAL 11/01/19 09:00 12/01/19 08:59 11/01/19 10:20 Methadone HCl (Methadone HCl) 50 mg DAILY ORAL 11/01/19 09:00 11/08/19 08:59 11/01/19 10:16 Metoprolol Tartrate (Lopressor) 25 mg EVERY 12 HOURS ORAL 11/01/19 09:00 12/01/19 08:59 11/01/19 10:19 Junior Khan MD Nov 02, 2019 17:38
--- NOTE | 2019-11-02 19:27 | NUR ---
NURSE NOTES: RECEIVED PATIENT RESTING IN BED, NO COMPLAINTS OF PAIN AT THIS TIME. FALL PRECAUTIONS IN PLACE: CALL LIGHT, BEDSIDE TABLE AND COMMODE WITHIN REACH, BED IN LOW POSITION AND BED ALARM ON. PLAN OF CARE REVIEWED.
--- NOTE | 2019-11-02 19:32 | NUR ---
HAND-OFF: Report given to ELDA Reich.
[2019-11-02 20:00] VITALS: BP 125/64
[2019-11-03] VITALS: BP 119/65
[2019-11-03 04:00] VITALS: BP 123/69
[2019-11-03] MEDS: Levothyroxine 125mcg tab ORAL SCH (05:13)
--- NOTE | 2019-11-03 05:45 | Progress Note ---
DATE: 11/02/2019 CARDIOLOGY PROGRESS NOTE SUBJECTIVE: The patient has no complaints. Swelling is slightly better. No shortness of breath noted. OBJECTIVE: VITAL SIGNS: Blood pressure 115/58, pulse 59, and respirations 20. Monitor sinus bradycardia. LUNGS: Diminished breath sounds. CARDIAC: Regular rhythm and rate. Normal S1 and S2 with a 1/6 systolic murmur at apex. ABDOMEN: Soft. EXTREMITIES: With dependent edema. LABORATORY DATA: Pro-natriuretic peptide 6573 yesterday. Echocardiogram normal ejection fraction, moderate mitral and mild tricuspid regurgitation with minimally elevated PA systolic pressure. Hemoglobin 8. BUN 43 and creatinine 2. TSH 7.2. IMPRESSION: 1. Acute on chronic diastolic congestive heart failure. 2. Chronic venous insufficiency. 3. Chronic kidney disease. 4. Hypothyroidism. 5. Severe protein-calorie malnutrition. 6. Severe anemia. 7. Degenerative valve disease with regurgitation. PLAN: 1. Thyroid replacement. 2. Anemia workup. 3. Cautious diuresis and titration of anti-failure regimen. 4. DVT prophylaxis. 5. Advanced afterload reduction regimen. Junior De M.D. DR: LEILANI JOB#: [id number] CC:
[2019-11-03] MEDS: NovoLOG Insulin Flexpen SUBQ SCH ×4 (06:30→20:58)
--- NOTE | 2019-11-03 07:18 | NUR ---
HAND-OFF: Report given to Giancarlo GILLIAM RN. PATIENT RESTING IN BED, NO SIGNS OF DISTRESS NOTED.
--- NOTE | 2019-11-03 07:29 | NUR ---
NURSE NOTES: Received report from ELDA Reich. Patient in bed resting, no active s/s cardiac, respiratory distress noticed at this time. Patient AOx4, SB with HR 58. IV on right shoulder 22G, asymptomatic, patent, intact, on room air. Endorsed patient positive for VRE kala, made aware. Bed in lowest position, side rails upx3, call light within reach, bedside commode at the bedside, family member at the bedside. Will continue to monitor.
[2019-11-03 08:00] VITALS: BP 123/64
[2019-11-03] MEDS: DULoxetine 30mg cap ORAL SCH (09:00)
[2019-11-03] MEDS: Heparin 5000 units/ml inj SUBQ SCH ×3 (09:00→21:00)
[2019-11-03] MEDS: Docusate 100mg cap ORAL SCH ×2 (09:00→17:44)
[2019-11-03] MEDS: Ascorbic Acid 500mg tab ORAL SCH (09:00)
[2019-11-03] MEDS: Losartan 50mg tab ORAL SCH (09:06)
[2019-11-03 09:16] LABS: HEMATOCRIT 24.4 % (37.0-47.0); HEMOGLOBIN 7.7 G/DL (12.0-16.0); MEAN CORPUSCULAR VOLUME 89 FL (80-99); PLATELET COUNT 110 K/UL (150-450); RED BLOOD COUNT 2.73 M/UL (4.20-5.40); RED CELL DISTRIBUTION WIDTH 14.9 % (11.6-14.8); WHITE BLOOD COUNT 4.2 K/UL (4.8-10.8)
[2019-11-03 09:30] LABS: ANION GAP 4 mmol/L (5-15); BLOOD UREA NITROGEN 42 mg/dL (7-18); CARBON DIOXIDE 24 MMOL/L (21-32); CHLORIDE 109 MMOL/L (98-107); POTASSIUM 4.7 MMOL/L (3.5-5.1); SODIUM 137 MMOL/L (136-145)
[2019-11-03 12:00] VITALS: BP 126/64
--- NOTE | 2019-11-03 13:07 | NUR ---
CASE MANAGEMENT: INITIAL REVIEW 59 YR OLD FEMALE BIBA FROM [facility] CC: EDEMA SI: RENAL FAILURE . CHF . FLUID OVERLOAD 97.8 60 18 122/64 95% ON RA H/H 8.3/26.6 CL-108 BUN 45 CREAT 2.0 BG 126 CA+ 7.2 BNP 6573 PT/INR 12.8/1.2 PTT 34 IS: LASIX X1 \: 2E TELE UNIT DCP: RETURN TO [facility] WHEN MEDICALLY STABLE CASE MANAGEMENT: REVIEW 11/03/19 SI: RENAL FAILURE . CHF . FLUID OVERLOAD 97.7 57 20 126/64 96% ON RA CL- 109 BUN 42 CREAT 2.0 BG 148 CA+ 7.0 IS: IV LASIX BID COZAAR PO QD NORVASC PO QD METHADONE PO X1 METHADONE PO QD HEPARIN SQ BID \: 2E TELE UNIT DCP: RETURN TO [facility] WHEN MEDICALLY STABLE PLAN: CONSULT SURG FOR WOUNDS
--- NOTE | 2019-11-03 14:31 | NUR ---
NURSE NOTES:WOUND CARE NOTES:Pt presented on admission with clubbing both feet,lymphedemae both lower ext. Pt noted to have a full thickness wound L hip that is malodorous with small amt seropurulent exudate. Pt stated wound is a non-healing surgical wound secondary to L hip surgery. Wound is partially obscured due to malformed folds of skin around wound. Edges of wound noted to be macerated .(L)4.8cm x (W)1.4cm x 1.5cm. Full thickness ulcer noted to L heel. [place] granulation at base of wound .Edges are macerated. Mild odor noted . Wound exuding large amt serosanguineous exudate(L)7.3cm x (W)6.5cm. Dry calluses noted to medial and lateral R heel. Tx.Plan: Cleanse L Hip with Saline.Loosely pack with Calcium Alginate. Cover with Optifoam drsg. Change Daily and prn. Cleanse L heel with Saline. Apply TheraHoney. Apply Calcium Alginate.Apply Cavilon Skin Barrier periwound.Apply Double layer ABD Pads. Wrap with Kerlix Drsg. Daily and prn. Off-load heels with pillow. Reposition at least every 2hours or as tolerated.
--- NOTE | 2019-11-03 15:02 | NUR ---
ST NOTE AND D/C SUMMARY: REFERRED FOR SWALLOW EVAL BY DR. SHAIKH, SEE SWALLOW EVAL REPORT. DYSPHAGIA RISK FACTORS FOR THIS 59 Y.O.F.: ACUTE FLUID OVERLOAD H/O [facility]INSON'S DZ (DR SHAIKH SAW THAT SHE HAD PD ON A PRIOR NOTE. NOTED ON [facility] CHART AND NOT ON HER SNF CHART. PATIENT DENIES SHE HAS THIS DIAGNOSIS), SUBSTANCE ABUSE (OPIOID AND TOBACCO), GERD, SEPSIS, HIP SURGERY, CHRONIC HEP C, LYMPHEDEMA, DM2, MUSCLE WEAKNESS, HTN, HYPOTHYROIDISM, AKF AND STAGE 3 KIDNEY DZ. NO POLST/AD REGARDING TUBE FEEDINGS. PER SNF, PATIENT ON A RENAL CCHO HARPAL REG TEXTURE DIET AND THIN LIQUIDS. CURRENTLY ON A RENAL AND CARDIAC SOFT CHEW DIET WITH THIN LIQUIDS. INTAKE AT 25-75% INTAKE. H/O OBESITY. ALERT AND ABLE TO EXPRESS NEEDS. DENIES SWALLOWING PROBLEMS. EDENTULOUS USED TO CHEWING HER FOOD WITH HER GUMS (NO DENTURES). INITIAL IMPRESSIONS: GROSSLY FUNCTIONAL SWALLOW WITH ALL CONSISTENCIES WITH GOOD INTAKE MOST OF THE TIME. NO OVERT ASPIRATION AND LUNGS ARE CLEAR UNCLEAR IF SHE HAS SILENT ASPIRATION RISK (HAS A CURRENT DX OF PD BUT NOT ON THESE MEDS AND PATIENT DENIES THIS DX. THIS DX IS NOT ON HER SNF MEDICAL RECORDS (JUST [facility] – [place]) RECOMMENDATIONS: CONTINUE WITH CURRENT DIET/LIQUIDS WITH GENERAL REFLUX PRECAUTIONS (HAS GERD DX). D/W WITH ELDA HOLLAND AND DR SHAIKH. WILL D/C FROM [facility] AT THIS TIME.
[2019-11-03 16:00] VITALS: BP 114/64
--- NOTE | 2019-11-03 18:15 | Consultation ---
DATE OF CONSULTATION: 11/03/2019 NEPHROLOGY CONSULTATION CONSULTING PHYSICIAN: Sandi Glasgow M.D. ATTENDING PHYSICIAN: Junior Khan M.D. REASON FOR CONSULTATION: Elevated BUN and creatinine. HISTORY OF PRESENT ILLNESS: This is a 59-year-old female who is well known to me from previous admissions to this hospital. The patient was admitted due to increasing edema to her extremities. I am asked to see the patient for elevation of BUN and creatinine. PAST MEDICAL HISTORY: 1. Chronic diastolic heart failure. 2. Chronic kidney disease. 3. Type 2 diabetes mellitus. 4. Parkinson disease. 5. Hypothyroidism. CURRENT MEDICATIONS: Include Synthroid, losartan, subcutaneous heparin, Lasix, sodium docusate, amlodipine, vitamin C, Cymbalta, oral iron, metoprolol, methadone, NovoLog insulin, Tylenol p.r.n., clonidine, hydralazine. ALLERGIES: To clindamycin and vancomycin. FAMILY HISTORY: Unremarkable. SOCIAL HISTORY: She lives in a alf. HABITS: She has history of narcotic abuse. REVIEW OF SYSTEMS: HEENT: Hearing and eyesight are normal. ENDOCRINE: Significant for type 2 diabetes mellitus and hypothyroidism. RESPIRATORY: Significant for orthopnea, paroxysmal nocturnal dyspnea, and dyspnea on effort. CARDIAC: She denies chest pain or palpitations. GASTROINTESTINAL: No history of hematochezia, melena, hematemesis, diarrhea, or constipation. GENITOURINARY: She denies dysuria, frequency, urgency, or hematuria. NEUROLOGIC: No history of stroke. PHYSICAL EXAMINATION: GENERAL: This is an elderly female, who is in no acute distress. VITAL SIGNS: Blood pressure is 114/64, mean arterial pressure 81, pulse 65 regular, respirations 18, temperature 97.7. HEENT: The head is normocephalic and atraumatic. Pupils are equal, round, and reactive to light. NECK: Supple. Trachea midline. There was no lymphadenopathy or thyromegaly. LUNGS: Clear to auscultation and percussion bilaterally. HEART: Regular rate and rhythm without rubs, murmurs, or gallops. ABDOMEN: Soft and nontender. Bowel sounds were active. There was no hepatosplenomegaly. EXTREMITIES: Notable for 4+ bilateral lower extremity edema. Homans sign is negative bilaterally. NEUROLOGIC: She is alert and oriented x4. Cranial nerves II through XII intact. LABORATORY AND ANCILLARY DATA: Sodium 137, potassium 4.7, chloride 109, BUN 42, creatinine 2, glucose 148. TSH 7.258. INR 1.2. CBC shows hematocrit 24.4, WBC 4.2, platelet count 110,000. Urinalysis significant for 2+ protein. The microscopy is negative. Renal ultrasound significant for mild left renal atrophy. No hydronephrosis. Chest x-ray, mild pulmonary vascular congestion. EKG shows normal sinus rhythm. ASSESSMENT: 1. Chronic kidney disease stage 4, most likely due to diabetic nephropathy. 2. Anemia of chronic kidney disease. PLAN: 1. Continue current therapy. 2. Avoid over-diuresis. Thank you, Dr. Khan, for letting me to participate in the care of this patient. Sandi Glasgow M.D. DR: DOMINIQUE JOB#: [id number] CC:
--- NOTE | 2019-11-03 19:00 | Pulmonology Progress Note ---
Assessment/Plan Assessment/Plan Pulmonary Progress Note HPI Patient is a 59-year-old [facility] Per nursing staff patient noted to have increased swelling to her arms and legs for the last few days. More pronounced in the lower extremities. Patient denies chest pain or shortness of breath. Denies pain. Denies fevers or chills. No other aggravating relieving factors. Denies any other associated symptoms Allergies: CLINDAMYCIN VANCOMYCIN Past Medical History: Hypertension, Congestive Heart Disease, Chronic Kidney Disease, Dementia, Diabetes, Parkinsons Disease Social History: Denies: smoking, alcohol use, drug use All Other Systems: negative except mentioned in HPI Improved LE swelling Physical Exam Vital Signs Noted General Appearance: no apparent distress, alert, GCS 15, non-toxic Head: normocephalic, atraumatic Eyes: bilateral eye normal inspection, bilateral eye PERRL ENT: hearing grossly normal, normal pharynx, no angioedema, normal voice Neck: full range of motion, supple/symm/no masses/no LN Respiratory: chest non-tender, lungs clear, normal breath sounds Cardiovascular: regular rate, rhythm, HS1, HS2 normal Gastrointestinal: normal bowel sounds, non tender, soft, non-distended, no guarding, no rebound Musculoskeletal: back normal, gait/station normal, non-tender, swelling - 1+ pitting edema b/l UEs and LEs Neurologic: alert, motor strength/tone normal, oriented x3, sensory intact, responsive, speech normal Impression: Chronic Renal failure Fluid overload Congestive heart failure Hypertension Diabetes Dementia Parkinsons Disease Plan: Diurese PRN 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 Echo Renal US Cardiology and Renal following Monitor labs PPX Labs Test 10/31/19 18:19 White Blood Count 6.0 K/UL (4.8-10.8) Red Blood Count 2.98 M/UL (4.20-5.40) Hemoglobin 8.3 G/DL (12.0-16.0) Hematocrit 26.6 % (37.0-47.0) Mean Corpuscular Volume 89 FL (80-99) Mean Corpuscular Hemoglobin 27.8 PG (27.0-31.0) Mean Corpuscular Hemoglobin Concent 31.1 G/DL (32.0-36.0) Red Cell Distribution Width 15.3 % (11.6-14.8) Platelet Count 129 K/UL (150-450) Mean Platelet Volume 5.4 FL (6.5-10.1) Neutrophils (%) (Auto) 59.8 % (45.0-75.0) Lymphocytes (%) (Auto) 25.1 % (20.0-45.0) Monocytes (%) (Auto) 10.8 % (1.0-10.0) Eosinophils (%) (Auto) 3.3 % (0.0-3.0) Basophils (%) (Auto) 1.0 % (0.0-2.0) Prothrombin Time 12.8 SEC (9.30-11.50) Prothromb Time International Ratio 1.2 (0.9-1.1) Activated Partial Thromboplast Time 34 SEC (23-33) Sodium Level 138 MMOL/L (136-145) Potassium Level 5.0 MMOL/L (3.5-5.1) Chloride Level 108 MMOL/L (98-107) Carbon Dioxide Level 21 MMOL/L (21-32) Anion Gap 9 mmol/L (5-15) Blood Urea Nitrogen 45 mg/dL (7-18) Creatinine 2.0 MG/DL (0.55-1.30) Estimat Glomerular Filtration Rate 25.5 mL/min (>60) Glucose Level 126 MG/DL (74-106) Calcium Level 7.2 MG/DL (8.5-10.1) Total Bilirubin 0.3 MG/DL (0.2-1.0) Aspartate Amino Transf (AST/SGOT) 64 U/L (15-37) Alanine Aminotransferase (ALT/SGPT) 41 U/L (12-78) Alkaline Phosphatase 198 U/L (46-116) Troponin I 0.001 ng/mL (0.000-0.056) Pro-B-Type Natriuretic Peptide 6573 pg/mL (0-125) Total Protein 9.0 G/DL (6.4-8.2) Albumin 2.0 G/DL (3.4-5.0) Globulin 7.0 g/dL Albumin/Globulin Ratio 0.3 (1.0-2.7) EKG: Rate: normal Rhythm: NSR ST Segments: no acute changes Chest X-Ray: no consolidation, no pneumothorax, other - cardiomegaly, CHF Subjective ROS Limited/Unobtainable: No Allergies: Coded Allergies: CLINDAMYCIN (Verified Allergy, Unknown, 05/14/19) VANCOMYCIN (Verified Allergy, Unknown, 05/14/19) Objective Last 24 Hour Vital Signs Date Time Temp Pulse Resp B/P (MAP) Pulse Ox O2 Delivery O2 Flow Rate FiO2 11/03/19 16:00 54 11/03/19 16:00 97.7 55 18 114/64 (81) 98 11/03/19 12:00 58 11/03/19 12:00 97.7 57 20 126/64 (84) 96 11/03/19 09:06 123/64 11/03/19 09:06 57 123/64 11/03/19 09:00 57 123/64 11/03/19 09:00 Room Air 11/03/19 08:00 58 11/03/19 08:00 97.7 57 18 123/64 (83) 96 11/03/19 04:00 97.7 58 18 123/69 (87) 98 11/03/19 04:00 58 11/03/19 00:00 97.3 60 20 119/65 (83) 99 11/03/19 00:00 55 11/02/19 21:33 63 125/64 11/02/19 21:00 Room Air 11/02/19 20:00 69 11/02/19 20:00 97.5 63 20 125/64 (84) 98 Intake and Output 11/02/19 11/03/19 19:00 07:00 Intake Total 120 ml 120 ml Output Total 1200 ml Balance 120 ml -1080 ml Intake Oral 120 ml 120 ml Output Urine Total 1200 ml Microbiology Date/Time Source Procedure Growth Status 10/31/19 19:10 Nasal Nares MRSA Culture - Final NO METHICILLIN RESISTANT STAPH AUREUS... Complete 10/31/19 19:10 Rectum - Final NO CARBAPENEM-RESISTANT ENTEROBACTERI... Complete 10/31/19 19:10 Rectum VRE Culture - Final Enterococcus Faecalis - Vre Complete Laboratory Tests 11/03/19 08:55: White Blood Count 4.2L, Red Blood Count 2.73L, Hemoglobin 7.7L, Hematocrit 24.4L , Mean Corpuscular Volume 89, Mean Corpuscular Hemoglobin 28.0, Mean Corpuscular Hemoglobin Concent 31.5L, Red Cell Distribution Width 14.9H, Platelet Count 110L, Mean Platelet Volume 5.4L, Neutrophils (%) (Auto) , Lymphocytes (%) (Auto) , Monocytes (%) (Auto) , Eosinophils (%) (Auto) , Basophils (%) (Auto) , Differential Total Cells Counted 100, Neutrophils % ( Manual) 47, Lymphocytes % (Manual) 35, Monocytes % (Manual) 12H, Eosinophils % ( Manual) 5H, Basophils % (Manual) 1, Band Neutrophils 0, Platelet Estimate DecreasedL, Platelet Morphology Normal, Hypochromasia 3+, Sodium Level 137, Potassium Level 4.7, Chloride Level 109H, Carbon Dioxide Level 24, Anion Gap 4L , Blood Urea Nitrogen 42H, Creatinine 2.0H, Estimat Glomerular Filtration Rate 25.5, Glucose Level 148H, Calcium Level 7.0L Current Medications Medications (Trade) Dose Ordered Sig/Miguelina Route PRN Reason Start Time Stop Time Status Last Admin Dose Admin Acetaminophen (Tylenol) 325 mg Q4H PRN ORAL For Pain 11/01/19 00:45 12/01/19 00:44 Amlodipine Besylate (Norvasc) 10 mg DAILY ORAL 11/01/19 09:00 12/01/19 08:59 11/03/19 09:06 Ascorbic Acid (Vitamin C) 500 mg DAILY ORAL 11/01/19 09:00 12/01/19 08:59 Clonidine HCl (Catapres Tab) 0.1 mg Q6H PRN ORAL for sbp>160 11/01/19 00:15 12/01/19 00:14 Dextrose (Dextrose 50%) 25 ml Q30M PRN IV Hypoglycemia 11/01/19 00:15 12/01/19 00:14 Dextrose (Dextrose 50%) 50 ml Q30M PRN IV Hypoglycemia 11/01/19 00:15 12/01/19 00:14 Docusate Sodium (Colace) 100 mg TWICE A DAY ORAL 11/01/19 09:00 12/01/19 08:59 Duloxetine HCl (Cymbalta) 30 mg DAILY ORAL 11/01/19 09:00 12/01/19 08:59 Epoetin Sam (Epoetin Sam-EPBX(NON ESRD)) 8,000 unit SUN-WED-SUN SUBQ 11/03/19 21:00 12/03/19 20:59 Ferrous Sulfate (Feosol) 325 mg DAILY ORAL 11/01/19 09:00 12/01/19 08:59 Furosemide (Lasix) 40 mg EVERY 12 HOURS IV 11/01/19 09:00 12/01/19 08:59 11/03/19 09:05 Heparin Sodium (Porcine) (Heparin 5000 units/ml) 5,000 units EVERY 12 HOURS SUBQ 11/01/19 09:00 12/01/19 08:59 Hydralazine HCl (Apresoline) 25 mg Q6H PRN ORAL for sbp>180 11/01/19 00:15 12/01/19 00:14 Insulin Aspart (NovoLOG) BEFORE MEALS AND HS SUBQ 11/01/19 06:30 12/01/19 06:29 11/02/19 21:38 Levothyroxine Sodium (Synthroid) 150 mcg ACBREAKFAST ORAL 11/04/19 06:30 12/01/19 06:29 Losartan Potassium (Cozaar) 100 mg DAILY ORAL 11/03/19 09:00 12/03/19 08:59 11/03/19 09:06 Methadone HCl (Methadone HCl) 50 mg DAILY ORAL 11/01/19 09:00 11/08/19 08:59 11/03/19 09:06 Metoprolol Tartrate (Lopressor) 25 mg EVERY 12 HOURS ORAL 11/01/19 09:00 12/01/19 08:59 11/02/19 21:33 Junior Khan MD Nov 03, 2019 19:00
[2019-11-03] MEDS ORDERED: OS-CAL1250 MG PO (19:15)
[2019-11-03] MEDS ORDERED: METHADONE10 MG/1 M1 ORAL (19:15)
[2019-11-03] MEDS ORDERED: METOPROLOL SUCC25 MG ORAL (19:15)
--- NOTE | 2019-11-03 19:24 | NUR ---
HAND-OFF: Report given to ELDA Spear.
--- NOTE | 2019-11-03 19:30 | NUR ---
NURSE NOTES: Received report from Giancarlo Medeiros RN. Patient in bed AAO X4 with no complaints of acute pain or discomfort noted at this time. Kept clean, dry and comfortable in bed. On continuous cardiac monitoring per protocol and IV line intact and patent. Assisted to the bedside commode PRN. Safety precaution in place; siderails X3 up, call light within reach, bed in lowest position, brakes and alarm on at all times. Needs and wants anticipated and attended. Will continue plan of care.
[2019-11-03 20:00] VITALS: BP 128/61
--- NOTE | 2019-11-03 20:58 | Consultation ---
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 On admission identified to have multiple wounds requiring care and management. Surgery called to evaluate and assist with care. Patient seen, patient evaluated, chart reviewed. Patient states that she has had her hip surgery in the past and has not been amatory since given how extensive it was. States that she is fairly bedbound tries to move her scan but but does not. States she is developed these wounds and is aware of them but does not care for them herself. Patient is fairly dependent on care. Otherwise states she is well. Pain controlled. No nausea vomiting fever chills. Allergies: Coded Allergies: CLINDAMYCIN (Verified Allergy, Unknown, 05/14/19) VANCOMYCIN (Verified Allergy, Unknown, 05/14/19) Medication History Scheduled Amlodipine Besylate* (Amlodipine Besylate*), 10 MG ORAL DAILY, (Reported) Calcium Carbonate (Calcium Carbonate), 1,250 MG PO QD, (Reported) Docusate Sodium* (Colace*), 100 MG ORAL DAILY, (Reported) Fludrocortisone Acetate (Fludrocortisone Acetate), 0.1 MG PO DAILY, (Reported) Levothyroxine Sodium* (Levothyroxine Sodium*), 125 MCG ORAL DAILY, (Reported) Methadone Hcl (Methadone Hcl), 50 MG ORAL QD, (Reported) Metoprolol Succinate* (Metoprolol Succinate*), 25 MG ORAL DAILY, (Reported) Scheduled PRN Acetaminophen* (Acetaminophen 325MG Tablet*), 650 MG ORAL Q4H PRN for For Pain, (Reported) Albuterol Sulfate* (Albuterol Sulfate Hhn*), 3 ML INH QD PRN for Shortness of Breath, (Reported) Clonidine Hcl* (Catapres*), 0.1 MG ORAL EVERY 6 HOURS PRN for SBP > 160, ( Reported) Discontinued Medications Ascorbic Acid* (Ascorbic Acid*), 500 MG ORAL DAILY, (Reported) Discontinued Reason: Therapy completed Aspirin* (Aspir 81*), 81 MG ORAL DAILY, (Reported) Discontinued Reason: Therapy completed Diphenhydramine Hcl* (Benadryl*), 25 MG ORAL Q6H PRN for Itching, (Reported) Discontinued Reason: Pt stopped taking med Duloxetine Hcl* (Cymbalta*), 30 MG ORAL DAILY, (Reported) Discontinued Reason: Therapy completed Ertapenem Sodium (Ertapenem), 1 GM IVPB DAILY, (Reported) Discontinued Reason: Therapy completed Ferrous Sulfate* (Ferrous Sulfate*), 325 MG ORAL DAILY, (Reported) Discontinued Reason: Therapy completed Folic Acid/Vit Bcomp,C (Renal Vitamin Tablet), 0.8 MG PO, (Reported) Discontinued Reason: Therapy completed Furosemide* (Lasix*), 40 MG ORAL DAILY, (Reported) Discontinued Reason: Therapy completed Heparin Sodium,Porcine/Pf (Heparin 500 Unit/5 ml (100/ml)), 100 UNIT IV, ( Reported) Discontinued Reason: Therapy completed Losartan Potassium* (Losartan Potassium*), 50 MG ORAL DAILY, (Reported) Discontinued Reason: Therapy completed Metoprolol Tartrate* (Metoprolol Tartrate*), 25 MG ORAL EVERY 12 HOURS, ( Reported) Discontinued Reason: Prescription changed Petrolatum,White (Aquaphor), 99 GM TP, (Reported) Discontinued Reason: Therapy completed Vitamin B Cmplx/Vit C/Folic AC (Nephro-Misty Tablet), 1 TAB ORAL DAILY, (Reported ) Discontinued Reason: Therapy completed Zinc Sulfate (Zinc Sulfate*), 220 MG ORAL DAILY, (Reported) Discontinued Reason: Therapy completed Patient History History Provided By: Patient, Medical Record, PMD Healthcare decision maker daughter Resuscitation status Full Code Advanced Directive on File Past Medical/Surgical History Past Medical/Surgical History: (1) Anemia (2) Decubitus ulcer of left heel, stage 4 (3) CHF (congestive heart failure) (4) Renal failure (5) Fluid overload (6) Decubitus skin ulcer Review of Systems Review of Symptoms General ROS: no weight loss or fever Psychological ROS: no depression or mood changes, no memory loss Ophthalmic ROS: no visual changes or eye irritation ENT ROS: no nasal congestion, hearing loss, dizziness Allergy and Immunology ROS: no allergic symptoms or urticaria Hematological and Lymphatic ROS: no swollen glands, unusual bleeding or bruising Endocrine ROS: no polyuria, polydipsia, weight changes, temperature intolerance Respiratory ROS: no cough, shortness of breath, or wheezing Cardiovascular ROS: no chest pain or dyspnea on exertion Gastrointestinal ROS: denies abdominal pain, bright red blood in stool. Musculoskeletal ROS: no myalgias or arthralgias Neurological ROS: no TIA or stroke symptoms Dermatological ROS: no new or changing skin lesions, rashes or pruritis Physical Exam Physical Exam General appearance: alert, cooperative, no distress, appears stated age Head: Normocephalic, without obvious abnormality, atraumatic Eyes: conjunctivae/corneas clear. PERRL, EOM's intact. Fundi benign Throat: Lips, mucosa, and tongue normal. Teeth and gums normal Neck: supple, symmetrical, trachea midline, no adenopathy, thyroid: not enlarged, symmetric, no tenderness/mass/nodules, no carotid bruit and no JVD Lungs: clear to auscultation bilaterally Heart: regular rate and rhythm, S1, S2 normal, no murmur, click, rub or gallop Abdomen: soft, non-tender. Bowel sounds normal. No masses, no organomegaly Extremities: extremities normal, atraumatic, no cyanosis ++edema Pulses: 2+ and symmetric Skin: Skin color, texture, turgor normal. No rashes or lesions Neurologic: Grossly normal Last 24 Hour Vital Signs Date Time Temp Pulse Resp B/P (MAP) Pulse Ox O2 Delivery O2 Flow Rate FiO2 11/03/19 16:00 54 11/03/19 16:00 97.7 55 18 114/64 (81) 98 11/03/19 12:00 58 11/03/19 12:00 97.7 57 20 126/64 (84) 96 11/03/19 09:06 123/64 11/03/19 09:06 57 123/64 11/03/19 09:00 57 123/64 11/03/19 09:00 Room Air 11/03/19 08:00 58 11/03/19 08:00 97.7 57 18 123/64 (83) 96 11/03/19 04:00 97.7 58 18 123/69 (87) 98 11/03/19 04:00 58 11/03/19 00:00 97.3 60 20 119/65 (83) 99 11/03/19 00:00 55 11/02/19 21:33 63 125/64 11/02/19 21:00 Room Air Intake and Output 11/02/19 11/03/19 19:00 07:00 Intake Total 120 ml 120 ml Output Total 1200 ml Balance 120 ml -1080 ml Intake Oral 120 ml 120 ml Output Urine Total 1200 ml Laboratory Tests Test 11/03/19 08:55 White Blood Count 4.2 K/UL (4.8-10.8) L Red Blood Count 2.73 M/UL (4.20-5.40) L Hemoglobin 7.7 G/DL (12.0-16.0) L Hematocrit 24.4 % (37.0-47.0) L Mean Corpuscular Volume 89 FL (80-99) Mean Corpuscular Hemoglobin 28.0 PG (27.0-31.0) Mean Corpuscular Hemoglobin Concent 31.5 G/DL (32.0-36.0) L Red Cell Distribution Width 14.9 % (11.6-14.8) H Platelet Count 110 K/UL (150-450) L Mean Platelet Volume 5.4 FL (6.5-10.1) L Neutrophils (%) (Auto) % (45.0-75.0) Lymphocytes (%) (Auto) % (20.0-45.0) Monocytes (%) (Auto) % (1.0-10.0) Eosinophils (%) (Auto) % (0.0-3.0) Basophils (%) (Auto) % (0.0-2.0) Differential Total Cells Counted 100 Neutrophils % (Manual) 47 % (45-75) Lymphocytes % (Manual) 35 % (20-45) Monocytes % (Manual) 12 % (1-10) H Eosinophils % (Manual) 5 % (0-3) H Basophils % (Manual) 1 % (0-2) Band Neutrophils 0 % (0-8) Platelet Estimate Decreased L Platelet Morphology Normal Hypochromasia 3+ Sodium Level 137 MMOL/L (136-145) Potassium Level 4.7 MMOL/L (3.5-5.1) Chloride Level 109 MMOL/L (98-107) H Carbon Dioxide Level 24 MMOL/L (21-32) Anion Gap 4 mmol/L (5-15) L Blood Urea Nitrogen 42 mg/dL (7-18) H Creatinine 2.0 MG/DL (0.55-1.30) H Estimat Glomerular Filtration Rate 25.5 mL/min (>60) Glucose Level 148 MG/DL (74-106) H Calcium Level 7.0 MG/DL (8.5-10.1) L Height (Feet): 5 Height (Inches): 5.00 Weight (Pounds): 165 Medications Current Medications Medications (Trade) Dose Ordered Sig/Miguelina Route PRN Reason Start Time Stop Time Status Last Admin Dose Admin Acetaminophen (Tylenol) 325 mg Q4H PRN ORAL For Pain 11/01/19 00:45 12/01/19 00:44 Amlodipine Besylate (Norvasc) 10 mg DAILY ORAL 11/01/19 09:00 12/01/19 08:59 11/03/19 09:06 Ascorbic Acid (Vitamin C) 500 mg DAILY ORAL 11/01/19 09:00 12/01/19 08:59 Clonidine HCl (Catapres Tab) 0.1 mg Q6H PRN ORAL for sbp>160 11/01/19 00:15 12/01/19 00:14 Dextrose (Dextrose 50%) 25 ml Q30M PRN IV Hypoglycemia 11/01/19 00:15 12/01/19 00:14 Dextrose (Dextrose 50%) 50 ml Q30M PRN IV Hypoglycemia 11/01/19 00:15 12/01/19 00:14 Docusate Sodium (Colace) 100 mg TWICE A DAY ORAL 11/01/19 09:00 12/01/19 08:59 Duloxetine HCl (Cymbalta) 30 mg DAILY ORAL 11/01/19 09:00 12/01/19 08:59 Epoetin Sam (Epoetin Sam-EPBX(NON ESRD)) 8,000 unit SUN-SUN-SUN SUBQ 11/03/19 21:00 12/03/19 20:59 Ferrous Sulfate (Feosol) 325 mg DAILY ORAL 11/01/19 09:00 12/01/19 08:59 Furosemide (Lasix) 40 mg EVERY 12 HOURS IV 11/01/19 09:00 12/01/19 08:59 11/03/19 09:05 Heparin Sodium (Porcine) (Heparin 5000 units/ml) 5,000 units EVERY 12 HOURS SUBQ 11/01/19 09:00 12/01/19 08:59 Hydralazine HCl (Apresoline) 25 mg Q6H PRN ORAL for sbp>180 11/01/19 00:15 12/01/19 00:14 Insulin Aspart (NovoLOG) BEFORE MEALS AND HS SUBQ 11/01/19 06:30 12/01/19 06:29 11/02/19 21:38 Levothyroxine Sodium (Synthroid) 150 mcg ACBREAKFAST ORAL 11/04/19 06:30 12/01/19 06:29 Losartan Potassium (Cozaar) 100 mg DAILY ORAL 11/03/19 09:00 12/03/19 08:59 11/03/19 09:06 Methadone HCl (Methadone HCl) 50 mg DAILY ORAL 11/01/19 09:00 11/08/19 08:59 11/03/19 09:06 Metoprolol Tartrate (Lopressor) 25 mg EVERY 12 HOURS ORAL 11/01/19 09:00 12/01/19 08:59 11/02/19 21:33 Assessment/Plan Problem List: (1) Decubitus skin ulcer Assessment & Plan: Pt presented on admission with clubbing both feet, lymphedemae both lower ext. Pt noted to have a full thickness wound L hip that is malodorous with small amt seropurulent exudate. Pt stated wound is a non- healing surgical wound secondary to L hip surgery. Wound is partially obscured due to malformed folds of skin around wound. Edges of wound noted to be macerated .(L)4.8cm x (W)1.4cm x 1.5cm. Full thickness ulcer noted to L heel. Oran granulation at base of wound .Edges are macerated. Mild odor noted . Wound exuding large amt serosanguineous exudate (L)7.3cm x (W)6.5cm. Dry calluses noted to medial and lateral R heel. Tx.Plan: Cleanse L Hip with Saline.Loosely pack with Calcium Alginate. Cover with Optifoam drsg. Change Daily and prn. Cleanse L heel with Saline. Apply TheraHoney. Apply Calcium Alginate.Apply Cavilon Skin Barrier periwound.Apply Double layer ABD Pads. Wrap with Kerlix Drsg. Daily and prn. Off-load heels with pillow. Reposition at least every 2hours or as tolerated. Needs nutritional optimization DAILY ESTIMATED NEEDS: Needs based on Wounds, 56.3kg adj 30-35 kcals/kg [id number] total kcals 1.25-1.5 g protein/kg 70-84 g total protein Fluid per MD, on lasix NUTRITION DIAGNOSIS: 1) Increased kcal and pro needs r/t wound healing as evidenced by open heel wound, eval pending. CURRENT DIET:[facility] MED/ renal/ soft/ cardiac PO DIET RECOMMENDATIONS: [facility] MED / LOW NA diet ADDITIONAL RECOMMENDATIONS: 1) Monitor lytes, need for renal diet restriction 2) F/up w/ LINE DRIVER eval 3) Wound care: Add BECKY BID F/up w/ WC eval 4) Obtain a calibrated bed scale wt EMR wt: 165# vs Bed wt: 234# ICD Codes: L89.90 - Pressure ulcer of unspecified site, unspecified stage SNOMED: 733474704 (2) Fluid overload Assessment & Plan: as per medicine team ICD Codes: E87.70 - Fluid overload, unspecified SNOMED: 77328760 Qualifiers: Qualified Codes: E87.70 - Fluid overload, unspecified (3) Anemia Assessment & Plan: Anemia from chronic illness likely. Nutritional optimization Multivitamin Iron supplementation No active bleeding noted from wounds. ICD Codes: D64.9 - Anemia, unspecified SNOMED: 674173670 J Carlos Galicia Nov 03, 2019 20:58
[2019-11-03] MEDS ORDERED: Epoetin Alfa-EPBX (NON ESRD)4000 units/ml vial SUBQ SCH (21:00)
[2019-11-04] VITALS: BP 121/57
[2019-11-04 04:00] VITALS: BP 131/62
--- NOTE | 2019-11-04 04:00 | Progress Note ---
DATE: 11/03/2019 CARDIOLOGY PROGRESS NOTE SUBJECTIVE: The patient has no shortness of breath. Her swelling has decreased. She was seen by the surgeon today for management of her wounds. OBJECTIVE: VITAL SIGNS: Blood pressure 126/64, pulse 57, respiratory rate 20, and afebrile. LUNGS: Diminished breath sounds. CARDIAC: Regular rhythm and rate. Normal S1 and S2 with 1/6 systolic apical murmur. EXTREMITIES: Dependant edema. Wound is dressed. Dressing in place. LABORATORY DATA: White count 4.2 and hemoglobin 7.7. Potassium 4.7, BUN 42, and creatinine 2. IMPRESSION: 1. Diabetic nephropathy. 2. Chronic kidney disease. 3. Chronic venous insufficiency. 4. Degenerative mitral valve disease with regurgitation. 5. Hypertensive heart disease with diastolic dysfunction. 6. Acute on chronic diastolic congestive heart failure. PLAN: 1. Cautious diuresis. 2. Avoid over diuresis due to tenuous renal function. 3. DVT prophylaxis 4. Titrate afterload reduction regimen as tolerated. Junior De M.D. DR: LEILANI JOB#: [id number] CC:
--- NOTE | 2019-11-04 05:15 | Consultation ---
DATE OF CONSULTATION: 11/01/2019 CARDIOLOGY CONSULTATION CONSULTING PHYSICIAN: Junior De M.D. REQUESTING PHYSICIANS: 1. Junior Khan M.D. 2. Manolo Matute M.D. REASON FOR CONSULTATION: Edema and congestive heart failure. HISTORY OF PRESENT ILLNESS: This 59-year-old female residing at a custodial facility, was noted to have increasing swelling to her arms and legs for several days, especially in the lower extremities. She did not have any chest pain or shortness of breath. There was no change in her diet and she was continuing to remain compliant with her usual medication. PAST MEDICAL HISTORY: Includes hypertension, congestive heart failure, type 2 diabetes mellitus, Parkinson disease with dementia and immobility, and chronic kidney disease. ALLERGIES: Include vancomycin and clindamycin. SOCIAL HISTORY: Negative for smoking, alcohol, or substance abuse. MEDICATIONS: Prior to admission, reviewed and reconciled. FAMILY HISTORY: Noncontributory. REVIEW OF SYSTEMS: No fevers or chills. No history of asthma or abnormal blood clotting. No history of seizure or stroke. Diabetes is managed with oral therapy. She is unaware of any history of heart attacks. She has not had any history of pericarditis, endocarditis, or irregular heartbeats that she is aware of. No recent change in bowel habits. She does have diabetic nephropathy. PHYSICAL EXAMINATION: VITAL SIGNS: Blood pressure 122/64, heart rate 60, respiratory rate 18, and afebrile. HEENT: Conjunctivae are pink. Oropharynx clear. NECK: Supple. Jugular venous pressure elevated. LUNGS: Clear breath sounds. CARDIAC: Regular rhythm and rate. Diminished S1. Normal S2. A 2/6 systolic apical murmur at the apex. ABDOMEN: Soft, nontender, and moderately obese. EXTREMITIES: With 1 to 2+ dependent edema. NEUROLOGIC: With sensory deficits and limited mobility. Increasing rigidity noted as well. LABORATORY DATA: Sodium 138, potassium 5, bicarb 21, BUN 45, creatinine 2.0, and glucose 126. Pro-natriuretic peptide 6500. Troponin negative. Albumin 2. White count 6 and hemoglobin 8.3. MCV 89. IMPRESSION: 1. Acute on chronic diastolic congestive heart failure. 2. Degenerative valve disease with probable mitral regurgitation. 3. Chronic kidney disease due to diabetic nephropathy. 4. Chronic venous insufficiency. 5. Type 2 diabetes mellitus. 6. Severe protein-calorie malnutrition may be due to nephrotic syndrome. 7. Immobility with dependent wounds. PLAN: 1. Cardiac monitoring. 2. Diuresis. 3. Optimize anti-failure regimen. 4. Echocardiogram to evaluate ventricular function. 5. Insulin titration per sliding scale. 6. Renal ultrasound. 7. DVT prophylaxis. 8. Trend natriuretic peptide assay. Junior De M.D. DR: ELAINA JOB#: [id number] CC:
[2019-11-04] MEDS: NovoLOG Insulin Flexpen SUBQ SCH ×3 (06:04→16:30)
--- NOTE | 2019-11-04 07:19 | NUR ---
HAND-OFF: Report given to Giancarlo Medeiros RN. Patient in bed asleep with no S/S of distress. Endorsed plan of care.
--- NOTE | 2019-11-04 07:35 | NUR ---
NURSE NOTES: Received report from ELDA Spear. Patient resting in bed, no active s/s cardiac, respiratory distress noticed at this time. Patient AOx4, on room air, SB with HR 57. IV on right shoulder 22G, asymptomatic, patent, intact. Bed in lowest position, side rails upx2, call light within reach. Will continue to monitor.
[2019-11-04 08:00] VITALS: BP 115/55
[2019-11-04 08:32] LABS: HEMATOCRIT 24.5 % (37.0-47.0); HEMOGLOBIN 7.6 G/DL (12.0-16.0); MEAN CORPUSCULAR VOLUME 89 FL (80-99); PLATELET COUNT 117 K/UL (150-450); RED BLOOD COUNT 2.75 M/UL (4.20-5.40); RED CELL DISTRIBUTION WIDTH 14.8 % (11.6-14.8); WHITE BLOOD COUNT 4.5 K/UL (4.8-10.8)
[2019-11-04 08:36] LABS: ANION GAP 4 mmol/L (5-15); BLOOD UREA NITROGEN 43 mg/dL (7-18); CALCIUM 7.1 MG/DL (8.5-10.1); CARBON DIOXIDE 26 MMOL/L (21-32); CHLORIDE 109 MMOL/L (98-107); CREATININE 1.9 MG/DL (0.55-1.30); POTASSIUM 4.6 MMOL/L (3.5-5.1); SODIUM 139 MMOL/L (136-145)
[2019-11-04] MEDS: Losartan 50mg tab ORAL SCH (08:58)
[2019-11-04] MEDS: Docusate 100mg cap ORAL SCH ×2 (08:59→18:00)
[2019-11-04] MEDS: DULoxetine 30mg cap ORAL SCH (08:59)
[2019-11-04] MEDS: Ascorbic Acid 500mg tab ORAL SCH (09:00)
[2019-11-04] MEDS: Heparin 5000 units/ml inj SUBQ SCH (09:00)
--- NOTE | 2019-11-04 11:41 | Surgery Progress Note ---
Surgery Progress Note Subjective Additional Comments no acute events comfortable stable Objective Last 24 Hour Vital Signs Date Time Temp Pulse Resp B/P (MAP) Pulse Ox O2 Delivery O2 Flow Rate FiO2 11/04/19 09:00 Room Air 11/04/19 08:59 60 115/55 11/04/19 08:59 60 115/55 11/04/19 08:58 115/55 11/04/19 08:00 97.9 60 19 115/55 (75) 95 11/04/19 08:00 62 11/04/19 04:00 61 11/04/19 04:00 97.0 63 16 131/62 (85) 95 11/04/19 00:00 58 11/04/19 00:00 97.3 66 16 121/57 (78) 97 11/03/19 21:00 Room Air 11/03/19 20:57 59 128/61 11/03/19 20:00 97.9 59 16 128/61 (83) 98 11/03/19 20:00 56 11/03/19 16:00 54 11/03/19 16:00 97.7 55 18 114/64 (81) 98 11/03/19 12:00 58 11/03/19 12:00 97.7 57 20 126/64 (84) 96 I&O Intake and Output 11/03/19 11/04/19 19:00 07:00 Intake Total 360 ml 240 ml Output Total 300 ml 200 ml Balance 60 ml 40 ml Intake Oral 360 ml 240 ml Output Urine Total 300 ml 200 ml # Voids 3 Dressing: saturated Wound: clean Cardiovascular: RSR Respiratory: clear Abdomen: soft, non-tender, present bowel sounds Extremities: edema, no tenderness, no cyanosis Laboratory Tests Test 11/04/19 08:00 White Blood Count 4.5 K/UL (4.8-10.8) L Red Blood Count 2.75 M/UL (4.20-5.40) L Hemoglobin 7.6 G/DL (12.0-16.0) L Hematocrit 24.5 % (37.0-47.0) L Mean Corpuscular Volume 89 FL (80-99) Mean Corpuscular Hemoglobin 27.8 PG (27.0-31.0) Mean Corpuscular Hemoglobin Concent 31.1 G/DL (32.0-36.0) L Red Cell Distribution Width 14.8 % (11.6-14.8) Platelet Count 117 K/UL (150-450) L Mean Platelet Volume 6.0 FL (6.5-10.1) L Neutrophils (%) (Auto) % (45.0-75.0) Lymphocytes (%) (Auto) % (20.0-45.0) Monocytes (%) (Auto) % (1.0-10.0) Eosinophils (%) (Auto) % (0.0-3.0) Basophils (%) (Auto) % (0.0-2.0) Differential Total Cells Counted 100 Neutrophils % (Manual) 44 % (45-75) L Lymphocytes % (Manual) 37 % (20-45) Monocytes % (Manual) 11 % (1-10) H Eosinophils % (Manual) 8 % (0-3) H Basophils % (Manual) 0 % (0-2) Band Neutrophils 0 % (0-8) Platelet Estimate Decreased L Platelet Morphology Normal Anisocytosis 1+ Sodium Level 139 MMOL/L (136-145) Potassium Level 4.6 MMOL/L (3.5-5.1) Chloride Level 109 MMOL/L (98-107) H Carbon Dioxide Level 26 MMOL/L (21-32) Anion Gap 4 mmol/L (5-15) L Blood Urea Nitrogen 43 mg/dL (7-18) H Creatinine 1.9 MG/DL (0.55-1.30) H Estimat Glomerular Filtration Rate 27.1 mL/min (>60) Glucose Level 78 MG/DL (74-106) Calcium Level 7.1 MG/DL (8.5-10.1) L Magnesium Level 2.2 MG/DL (1.8-2.4) Pro-B-Type Natriuretic Peptide 4453 pg/mL (0-125) H Plan Problems: (1) Decubitus skin ulcer Assessment & Plan: Pt presented on admission with clubbing both feet, lymphedemae both lower ext. Pt noted to have a full thickness wound L hip that is malodorous with small amt seropurulent exudate. Pt stated wound is a non- healing surgical wound secondary to L hip surgery. Wound is partially obscured due to malformed folds of skin around wound. Edges of wound noted to be macerated .(L)4.8cm x (W)1.4cm x 1.5cm. Full thickness ulcer noted to L heel. [place] granulation at base of wound .Edges are macerated. Mild odor noted . Wound exuding large amt serosanguineous exudate (L)7.3cm x (W)6.5cm. Dry calluses noted to medial and lateral R heel. Tx.Plan: Cleanse L Hip with Saline.Loosely pack with Calcium Alginate. Cover with Optifoam drsg. Change Daily and prn. Cleanse L heel with Saline. Apply TheraHoney. Apply Calcium Alginate.Apply Cavilon Skin Barrier periwound.Apply Double layer ABD Pads. Wrap with Kerlix Drsg. Daily and prn. Off-load heels with pillow. Reposition at least every 2hours or as tolerated. Needs nutritional optimization DAILY ESTIMATED NEEDS: Needs based on Wounds, 56.3kg adj 30-35 kcals/kg 9395-8779 total kcals 1.25-1.5 g protein/kg 70-84 g total protein Fluid per MD, on lasix NUTRITION DIAGNOSIS: 1) Increased kcal and pro needs r/t wound healing as evidenced by open heel wound, eval pending. CURRENT DIET:CCHO MED/ renal/ soft/ cardiac PO DIET RECOMMENDATIONS: CCHO MED / LOW NA diet ADDITIONAL RECOMMENDATIONS: 1) Monitor lytes, need for renal diet restriction 2) F/up w/ STOCKING INSPECTOR eval 3) Wound care: Add BECKY BID F/up w/ WC eval 4) Obtain a calibrated bed scale wt EMR wt: 165# vs Bed wt: 234# (2) Fluid overload Assessment & Plan: as per medicine team (3) Anemia Assessment & Plan: Anemia from chronic illness likely. Nutritional optimization Multivitamin Iron supplementation No active bleeding noted from wounds. J Carlos Galicia Nov 04, 2019 11:41
[2019-11-04 12:00] VITALS: BP 119/63
--- NOTE | 2019-11-04 12:22 | Nephrology Progress Note ---
Assessment/Plan Plan CKD IV stable Anemia of CKD - MIGUEL + IV Venofer Subjective Subjective No new c/o Objective Objective Last 24 Hour Vital Signs Date Time Temp Pulse Resp B/P (MAP) Pulse Ox O2 Delivery O2 Flow Rate FiO2 11/04/19 09:00 Room Air 11/04/19 08:59 60 115/55 11/04/19 08:59 60 115/55 11/04/19 08:58 115/55 11/04/19 08:00 97.9 60 19 115/55 (75) 95 11/04/19 08:00 62 11/04/19 04:00 61 11/04/19 04:00 97.0 63 16 131/62 (85) 95 11/04/19 00:00 58 11/04/19 00:00 97.3 66 16 121/57 (78) 97 11/03/19 21:00 Room Air 11/03/19 20:57 59 128/61 11/03/19 20:00 97.9 59 16 128/61 (83) 98 11/03/19 20:00 56 11/03/19 16:00 54 11/03/19 16:00 97.7 55 18 114/64 (81) 98 Intake and Output 11/03/19 11/04/19 19:00 07:00 Intake Total 360 ml 240 ml Output Total 300 ml 200 ml Balance 60 ml 40 ml Intake Oral 360 ml 240 ml Output Urine Total 300 ml 200 ml # Voids 3 Laboratory Tests 11/04/19 08:00: White Blood Count 4.5L, Red Blood Count 2.75L, Hemoglobin 7.6L, Hematocrit 24.5L , Mean Corpuscular Volume 89, Mean Corpuscular Hemoglobin 27.8, Mean Corpuscular Hemoglobin Concent 31.1L, Red Cell Distribution Width 14.8, Platelet Count 117L, Mean Platelet Volume 6.0L, Neutrophils (%) (Auto) , Lymphocytes (%) (Auto) , Monocytes (%) (Auto) , Eosinophils (%) (Auto) , Basophils (%) (Auto) , Differential Total Cells Counted 100, Neutrophils % ( Manual) 44L, Lymphocytes % (Manual) 37, Monocytes % (Manual) 11H, Eosinophils % (Manual) 8H, Basophils % (Manual) 0, Band Neutrophils 0, Platelet Estimate DecreasedL, Platelet Morphology Normal, Anisocytosis 1+, Sodium Level 139, Potassium Level 4.6, Chloride Level 109H, Carbon Dioxide Level 26, Anion Gap 4L , Blood Urea Nitrogen 43H, Creatinine 1.9H, Estimat Glomerular Filtration Rate 27.1, Glucose Level 78, Calcium Level 7.1L, Magnesium Level 2.2, Pro-B-Type Natriuretic Peptide 4453H Height (Feet): 5 Height (Inches): 5.00 Weight (Pounds): 165 Objective CV RR Lungs CTAP. Abd SNT. BS + E + $ B edema Sandi Glasgow MD Nov 04, 2019 12:22
--- NOTE | 2019-11-04 14:20 | NUR ---
RD ASSESSMENT & RECOMMENDATIONS SEE CARE ACTIVITY FOR COMPLETE ASSESSMENT DAILY ESTIMATED NEEDS: Needs based on Wounds, CHF, 56.3kg adj 30-35 kcals/kg 9536-1117 total kcals 1.25-1.5 g protein/kg 70-84 g total protein Fluid per MD, on lasix mL/kg total fluid mLs NUTRITION DIAGNOSIS: 1) Increased kcal and pro needs r/t wound healing as evidenced by admitted w/ full thickness wounds @ Lt heel and Lt hip. 2) Altered nutrition related lab values R/T DM and CHF as evidenced by elev POC glu (91-216), elev BNP (4453), on Lasix. CURRENT DIET:CCHO MED/ renal/ soft/ cardiac PO DIET RECOMMENDATIONS: CCHO MED / LOW NA diet ADDITIONAL RECOMMENDATIONS: 1) Monitor lytes and renal fxn, need for renal diet restriction 2) Wound care: Add MVI x 1, Continue Vit C (however, pt refusing) Add BECKY BID 3) Obtain a calibrated bed scale wt EMR wt: 165# vs Bed wt: 229# 4) Daily wts given CHF dx, on lasix .
--- NOTE | 2019-11-04 15:38 | NUR ---
DISCHARGE PLANNED: PATIENT HAS BEEN ACCEPTED BACK TO [facility] T: [phone] FOR NURSE TO NURSE REPORT ROOM#29C LONG TERM [place] AMB PICKUP TIME 6PM
[2019-11-04 16:00] VITALS: BP 123/67
--- NOTE | 2019-11-04 19:29 | NUR ---
NURSE NOTES: Report given to ELDA Salguero from [facility]. tele [phone]. Noemy made aware patient IV furosemide changed to PO furosemide 40mg BID.
--- NOTE | 2019-11-04 19:30 | Progress Note ---
DATE: 11/04/2019 CARDIOLOGY PROGRESS NOTE SUBJECTIVE: No chest pain. No shortness of breath. Comfortable. OBJECTIVE: VITAL SIGNS: Blood pressure 115/55, pulse 60, respiratory rate 19. Sinus rhythm. NECK: Jugular venous pressure normal. CARDIAC: Regular rhythm rate. Normal S1 and S2 with no new murmur. LUNGS: Clear. EXTREMITIES: With trace dependent edema. IMPRESSION: 1. Hypertensive heart disease. 2. 3. Anemia of chronic kidney disease. 4. Chronic venous insufficiency. 5. Chronic diastolic congestive heart failure clinic. PLAN: 1. Compensated on current medications. 2. Transitioned to oral therapy. 3. Stable for outpatient followup. 4. Dependent edema will require compression stockings at times. Junior De M.D. DR: Nisreen JOB#: [id number] CC:
--- NOTE | 2019-11-04 19:30 | NUR ---
HAND-OFF: Report given to ELDA Shell.
--- NOTE | 2019-11-04 19:31 | NUR ---
NURSE NOTES: received pt from ELDA Adame. Pt is awake and resting in bed, in no acute distress. Iv site intact. Bed locked in lowest position, call light within reach, bed alarm on. Will continue with plan of care.
--- NOTE | 2019-11-04 20:15 | NUR ---
Discharge: Patient is being discharged returning back to [facility]. Awake, alert and oriented x4. After care instructions given. Patient verbalized understanding of After care instructions; at this time patient does not request medications. Patient signed patient consent in the medical record for patient destination upon discharge. All medical devices such as IV, cardiac box, and ID band were removed. Patient picked up by transport team via gurney with all personal belongings.
--- NOTE | 2019-11-04 20:31 | Pulmonology Progress Note ---
Assessment/Plan Assessment/Plan Pulmonary Progress Note HPI Patient is a 59-year-old female admitted from senior care facility. Per nursing staff patient noted to have increased swelling to her arms and legs for the last few days. More pronounced in the lower extremities. Patient denies chest pain or shortness of breath. Denies pain. Denies fevers or chills. No other aggravating relieving factors. Denies any other associated symptoms Allergies: CLINDAMYCIN VANCOMYCIN Past Medical History: Hypertension, Congestive Heart Disease, Chronic Kidney Disease, Dementia, Diabetes Social History: Denies: smoking, alcohol use, drug use All Other Systems: negative except mentioned in HPI Improved LE swelling Physical Exam Vital Signs Noted General Appearance: no apparent distress, alert, GCS 15, non-toxic Head: normocephalic, atraumatic Eyes: bilateral eye normal inspection, bilateral eye PERRL ENT: hearing grossly normal, normal pharynx, no angioedema, normal voice Neck: full range of motion, supple/symm/no masses/no LN Respiratory: chest non-tender, lungs clear, normal breath sounds Cardiovascular: regular rate, rhythm, HS1, HS2 normal Gastrointestinal: normal bowel sounds, non tender, soft, non-distended, no guarding, no rebound Musculoskeletal: back normal, gait/station normal, non-tender, swelling - 1+ pitting edema b/l UEs and LEs Neurologic: alert, motor strength/tone normal, oriented x3, sensory intact, responsive, speech normal Impression: Chronic Renal failure Fluid overload Congestive heart failure Hypertension Diabetes Dementia Chronic Opiod use Plan: Diurese PRN Afterload reduction MACHINE I CUTTER Medications Echo Renal US Cardiology and Renal following Monitor labs PPX DC planning to SNF Labs Noted Renal US no Hydronephrosis EKG: Rate: normal Rhythm: NSR ST Segments: no acute changes Chest X-Ray: no consolidation, no pneumothorax, other - cardiomegaly, CHF Subjective ROS Limited/Unobtainable: No Allergies: Coded Allergies: CLINDAMYCIN (Verified Allergy, Unknown, 05/14/19) VANCOMYCIN (Verified Allergy, Unknown, 05/14/19) Objective Last 24 Hour Vital Signs Date Time Temp Pulse Resp B/P (MAP) Pulse Ox O2 Delivery O2 Flow Rate FiO2 11/04/19 16:00 63 11/04/19 16:00 97.7 63 18 123/67 (85) 98 11/04/19 12:00 98.6 60 19 119/63 (81) 96 11/04/19 12:00 62 11/04/19 09:00 Room Air 11/04/19 08:59 60 115/55 11/04/19 08:59 60 115/55 11/04/19 08:58 115/55 11/04/19 08:00 97.9 60 19 115/55 (75) 95 11/04/19 08:00 62 11/04/19 04:00 61 11/04/19 04:00 97.0 63 16 131/62 (85) 95 11/04/19 00:00 58 11/04/19 00:00 97.3 66 16 121/57 (78) 97 11/03/19 21:00 Room Air 11/03/19 20:57 59 128/61 Intake and Output 11/03/19 11/04/19 18:59 06:59 Intake Total 360 ml 240 ml Output Total 300 ml 200 ml Balance 60 ml 40 ml Intake Oral 360 ml 240 ml Output Urine Total 300 ml 200 ml # Voids 3 Laboratory Tests 11/04/19 08:00: White Blood Count 4.5L, Red Blood Count 2.75L, Hemoglobin 7.6L, Hematocrit 24.5L , Mean Corpuscular Volume 89, Mean Corpuscular Hemoglobin 27.8, Mean Corpuscular Hemoglobin Concent 31.1L, Red Cell Distribution Width 14.8, Platelet Count 117L, Mean Platelet Volume 6.0L, Neutrophils (%) (Auto) , Lymphocytes (%) (Auto) , Monocytes (%) (Auto) , Eosinophils (%) (Auto) , Basophils (%) (Auto) , Differential Total Cells Counted 100, Neutrophils % ( Manual) 44L, Lymphocytes % (Manual) 37, Monocytes % (Manual) 11H, Eosinophils % (Manual) 8H, Basophils % (Manual) 0, Band Neutrophils 0, Platelet Estimate DecreasedL, Platelet Morphology Normal, Anisocytosis 1+, Sodium Level 139, Potassium Level 4.6, Chloride Level 109H, Carbon Dioxide Level 26, Anion Gap 4L , Blood Urea Nitrogen 43H, Creatinine 1.9H, Estimat Glomerular Filtration Rate 27.1, Glucose Level 78, Calcium Level 7.1L, Magnesium Level 2.2, Pro-B-Type Natriuretic Peptide 4453H Current Medications Medications (Trade) Dose Ordered Sig/Miguelina Route PRN Reason Start Time Stop Time Status Last Admin Dose Admin Acetaminophen (Tylenol) 325 mg Q4H PRN ORAL For Pain 11/01/19 00:45 12/01/19 00:44 Amlodipine Besylate (Norvasc) 10 mg DAILY ORAL 11/01/19 09:00 12/01/19 08:59 11/03/19 09:06 Ascorbic Acid (Vitamin C) 500 mg DAILY ORAL 11/01/19 09:00 12/01/19 08:59 Clonidine HCl (Catapres Tab) 0.1 mg Q6H PRN ORAL for sbp>160 11/01/19 00:15 12/01/19 00:14 Dextrose (Dextrose 50%) 25 ml Q30M PRN IV Hypoglycemia 11/01/19 00:15 12/01/19 00:14 Dextrose (Dextrose 50%) 50 ml Q30M PRN IV Hypoglycemia 11/01/19 00:15 12/01/19 00:14 Docusate Sodium (Colace) 100 mg TWICE A DAY ORAL 11/01/19 09:00 12/01/19 08:59 Duloxetine HCl (Cymbalta) 30 mg DAILY ORAL 11/01/19 09:00 12/01/19 08:59 Epoetin Sam (Epoetin Sam-EPBX(NON ESRD)) 8,000 unit SUN-SUN-SUN SUBQ 11/03/19 21:00 12/03/19 20:59 11/03/19 21:03 Ferrous Sulfate (Feosol) 325 mg DAILY ORAL 11/01/19 09:00 12/01/19 08:59 Furosemide (Lasix) 40 mg EVERY 12 HOURS IV 11/01/19 09:00 12/01/19 08:59 11/04/19 08:57 Heparin Sodium (Porcine) (Heparin 5000 units/ml) 5,000 units EVERY 12 HOURS SUBQ 11/01/19 09:00 12/01/19 08:59 Hydralazine HCl (Apresoline) 25 mg Q6H PRN ORAL for sbp>180 11/01/19 00:15 12/01/19 00:14 Insulin Aspart (NovoLOG) BEFORE MEALS AND HS SUBQ 11/01/19 06:30 12/01/19 06:29 11/02/19 21:38 Levothyroxine Sodium (Synthroid) 150 mcg ACBREAKFAST ORAL 11/04/19 06:30 12/01/19 06:29 11/04/19 06:04 Losartan Potassium (Cozaar) 100 mg DAILY ORAL 11/03/19 09:00 12/03/19 08:59 11/04/19 08:58 Methadone HCl (Methadone HCl) 50 mg DAILY ORAL 11/01/19 09:00 11/08/19 08:59 11/04/19 08:57 Metoprolol Tartrate (Lopressor) 25 mg EVERY 12 HOURS ORAL 11/01/19 09:00 12/01/19 08:59 11/02/19 21:33 Junior Khan MD Nov 04, 2019 20:31
--- NOTE | 2019-11-05 10:27 | Discharge Summary ---
Discharge Summary Discharge Summary _ DATE OF ADMISSION: DATE OF ADMISSION: 10/31/2019 DATE OF DISCHARGE: 11/04/[address] Khan REASON FOR ADMISSION: 89 years old female, resident of [facility] facility, with past medical history significant for congestive heart failure, chronic kidney disease, hypertension, dementia, diabetes mellitus, Parkinson disease , presented with increased leg and arm swelling for the last few days, more pronounced in the lower extremities. Patient denied chest pain or shortness of breath. Patient denied fever or chills. Vital signs were stable. Laboratory work-up revealed no leukocytosis. Elevated BUN/creatinine. Troponin negative. EKG revealed normal sinus rhythm, no acute ischemic changes. pro BNP elevated above 6000. Chest x-ray revealed pulmonary congestion. In emergency department patient received Lasix. Patient subsequently admitted to telemetry floor for further management. CONSULTANTS: electric meter installer helper Dr. De information systems security developer Dr. Glasgow surgery Dr. Galicia [facility] COURSE: Patient admitted to telemetry floor. Sales Force Administrator and information systems security developer followed. Echocardiogram revealed preserved ejection fraction of 60 to 65% with no evidence of wall motion abnormality. Mild to moderate mitral regurgitation. Right ventricular systolic pressure of 47 consistent with mild pulmonary hypertension. Patient started on diuresis with close monitoring of volumes and cardiorenal parameters. Anti-failure regimen was optimized. Afterload reduction regimen was advanced. Diuresis provided cautiously , given tenuous renal function. DVT prophylaxis provided. Blood sugar was managed with sliding scale of insulin. Hemoglobin A1c 6.9 , at goal. Renal ultrasound demonstrated mild left renal atrophy. No hydronephrosis. Per information systems security developer, patient had chronic kidney disease stage IV , most likely due to diabetic nephropathy and anemia of chronic kidney disease. Professor Of Literature recommended avoid overdiuresis and other nephrotoxic. Renal parameters and electrolytes were closely monitored, electrolytes corrected as needed . Creatinine remained at baseline from initial 2 down to 1.9. TSH noted to be elevated , dose of Synthroid uptitrated, repeat TFT in 1 month. Hemoglobin and hematocrit were closely monitored with goal to keep hemoglobin above 7; prior to discharge hemoglobin 7.6 , hematocrit 24.5. Patient was on Epogen 3 times a week. ProBNP trended down from initial 6573 down to 4453. Blood pressure was stable with current multiply antihypertensive medications. Supportive care provided. Bowel regimen instituted. Surgeon followed for venous chronic venous insufficiency, lymphedema bilateral lower extremity and full-thickness wound left hip. Wound care provided as per surgeon recommendation. Continue wound care at the facility. Patient clinically stabilized and was ready for transfer back to [facility] facility for continuation of care. FINAL DIAGNOSES: Acute on chronic diastolic congestive heart failure Fluid overload Degenerative valve disease with regurgitation Chronic kidney disease stage IV- due to diabetic nephropathy Chronic venous insufficiency Hypertensive heart disease with diastolic dysfunction Diabetes melitus Dementia Parkinson's disease Severe protein calorie malnutrition Hypothyroidism Severe anemia of chronic kidney disease DISCHARGE MEDICATIONS: List of medication was sent to accepting facility DISCHARGE INSTRUCTIONS: Patient was discharged to the [facility] facility. Follow up with medical doctor at the facility. I have been assigned to dictate discharge summary for this account. I was not involved in the patient's management. I Charissa Yates NP Nov 05, 2019 10:27
== END 2019-11-04 20:15 | DRG 291 ==
LOC: EDBD 16:57 → EMR 17:20 → 2E 18:00 → EDBEDREQ 18:53
DX: I13.0 Hypertensive heart and chronic kidney disease with heart failure and stage 1 through stage 4 chronic kidney disease, or unspecified chronic kidney disease (principal); I50.33 Acute on chronic diastolic (congestive) heart failure; E43 Unspecified severe protein-calorie malnutrition; N18.4 Chronic kidney disease, stage 4 (severe); E87.70 Fluid overload, unspecified; Z88.1 Allergy status to other antibiotic agents; E11.22 Type 2 diabetes mellitus with diabetic chronic kidney disease; G20 Parkinson's disease; F02.80 Dementia in other diseases classified elsewhere, unspecified severity, without behavioral disturbance, psychotic disturbance, mood disturbance, and anxiety; I27.20 Pulmonary hypertension, unspecified; I87.2 Venous insufficiency (chronic) (peripheral); E03.9 Hypothyroidism, unspecified; N18.9 Chronic kidney disease, unspecified; D63.1 Anemia in chronic kidney disease; Z79.4 Long term (current) use of insulin
CPT/HCPCS: 36415; 71045; 76770; 80048; 80053; 81003; 82962; 83036; 83735; 83880; 84443; 84484; 85007; 85025; 85610; 85730; 87081; 93306; 96374; 99285; J1815